=== PATIENT | male | born 1970 | race Hispanic/Latino ===

== ENCOUNTER 2019-03-28 21:21 | Inpatient (IN) | payer OTHER ==
--- NOTE | 2019-03-28 22:18 | Emergency Department Report ---
HPI - General Chief Complaint: Abdominal Pain Time Seen by Provider: 03/28/19 22:01 - HPI HPI: Room 7 The patient is a 48-year-old male presented with a chief complaint of fever. The patient is currently at [facility] under a 1013 for suicidal rex ation/depression. The patient reports fever at the facility for the past 2 days. The patient admits to occasional alcohol that has been productive but is uncertain of the color. Patient also admits to abdominal tenderness. Patient denies nausea vomiting or dysuria. Patient denies any new rashes Location: [See above] Duration: [See above] Quality: [See above] Severity: [See above] Modifying factors: [see above] Context: [see above] Mode of transportation: [not driving] ED Past Medical Hx - Past Medical History Previous Medical History?: Yes Hx Hypertension: Yes Hx Psychiatric Treatment: Yes Additional medical history: anxiety - Surgical History Past Surgical History?: Yes Additional Surgical History: back sx - Family History Family history: no significant - Social History Smoking Status: Former Smoker (none 2 weeks) Substance Use Type: None (denies illicit drug use), Alcohol ED Review of Systems ROS: Stated complaint: HIGH FEVER Other details as noted in HPI Constitutional: fever Eyes: denies: eye pain ENT: denies: throat pain Respiratory: no symptoms reported Cardiovascular: denies: chest pain Endocrine: no symptoms reported Gastrointestinal: abdominal pain. denies: nausea, vomiting Genitourinary: denies: dysuria Neurological: denies: headache Physical Exam - Physical Exam Vital Signs: Vital Signs 03/28/19 22:01 Temperature 101.3 F H Pulse Rate 87 Respiratory 18 Rate Blood Pressure 112/73 Blood Pressure 112/73 [Right] O2 Sat by Pulse 97 Oximetry Physical Exam: GENERAL: The patient is well-developed well-nourished male lying on stretcher not appearing to be in acute distress. [] HEENT: Normocephalic. Atraumatic. Extraocular motions are intact. Patient has moist mucous membranes. NECK: Supple. Trachea midline CHEST/LUNGS: Clear to auscultation. There is no respiratory distress noted. HEART/CARDIOVASCULAR: Regular. There is no tachycardia. There is no gallop rub or murmur. ABDOMEN: Abdomen is soft, with discomfort to palpation in the right upper quadrant, left upper quadrant and left lower quadrant. Patient has normal bowel sounds. There is no abdominal distention. SKIN: There is no rash. There is no edema. There is no diaphoresis. NEURO: The patient is awake, alert, and oriented. The patient is cooperative. The patient has normal speech MUSCULOSKELETAL: There is no evidence of acute injury. ED Course Vital Signs 03/28/19 22:01 Temperature 101.3 F H Pulse Rate 87 Respiratory 18 Rate Blood Pressure 112/73 Blood Pressure 112/73 [Right] O2 Sat by Pulse 97 Oximetry - Consultations Consultation #1: 03/29/19 01:12 Surgery paged 03/29/19 01:[address] Camacho ED Medical Decision Making - Lab Data Result diagrams: 03/28/19 22:21 03/28/19 22:21 Laboratory Tests 03/28/19 03/28/19 03/28/19 22:21 22:21 22:21 WBC 7.5 RBC 4.31 Hgb 15.5 H Hct 44.0 MCV 102 H MCH 36 H MCHC 35 H RDW 14.0 Plt Count 198 Lymph % (Auto) 11.5 L Emm[place] % (Auto) 10.8 H Eos % (Auto) 0.1 Baso % (Auto) 0.8 Lymph # 0.9 L Emmet # 0.8 Eos # 0.0 Baso # 0.1 Seg Neutrophils % 76.8 H Seg Neutrophils # 5.7 Sodium 130 L Potassium 3.8 Chloride 97.4 L Carbon Dioxide 22 Anion Gap 14 BUN 8 L Creatinine 0.9 Estimated GFR > 60 BUN/Creatinine Ratio 9 Glucose 118 H Lactic Acid 1.60 Calcium 8.4 Total Bilirubin 1.30 H AST 37 ALT 96 H Alkaline Phosphatase 46 Albumin 2.7 L Lipase TSH Free T4 Urine Color Urine Turbidity Urine pH Ur Specific [place] Urine Protein Urine Glucose (UA) Urine Ketones Urine Blood Urine Nitrite Urine Bilirubin Urine Urobilinogen Ur Leukocyte Esterase Urine WBC (Auto) Urine RBC (Auto) U Epithel Cells (Auto) Urine Mucus 03/28/19 03/28/19 03/29/19 22:21 23:31 01:06 WBC RBC Hgb Hct MCV MCH MCHC RDW Plt Count Lymph % (Auto) Emm[place] % (Auto) Eos % (Auto) Baso % (Auto) Lymph # Emmet # Eos # Baso # Seg Neutrophils % Seg Neutrophils # Sodium Potassium Chloride Carbon Dioxide Anion Gap BUN Creatinine Estimated GFR BUN/Creatinine Ratio Glucose Lactic Acid Calcium Total Bilirubin AST ALT Alkaline Phosphatase Albumin Lipase 13 TSH 1.110 Free T4 1.41 Urine Color Sandy Urine Turbidity Slightly-cloudy Urine pH 6.0 Ur Specific [place] 1.016 Urine Protein 30 mg/dl Urine Glucose (UA) Neg Urine Ketones Neg Urine Blood Mod Urine Nitrite Neg Urine Bilirubin Neg Urine Urobilinogen < 2.0 Ur Leukocyte Esterase Neg Urine WBC (Auto) 1.0 Urine RBC (Auto) 4.0 U Epithel Cells (Auto) 1.0 Urine Mucus Few - Radiology Data Radiology results: report reviewed (chest x-ray), image reviewed (chest x-ray, CT abdomen and pelvis, CT chest) interpreted by me: Chest x-con-bbioupdy left hemidiaphragm [address] [address] XRay Report Signed Patient: SHARI RODRIGUEZ MR#: [id number] 1 : 1970 Acct:[id number] Age/Sex: 48 / M ADM Date: 03/28/19 Loc: ED Attending Dr: Ordering Physician: EASTON LOREDO MD Date of Service: 03/28/19 Procedure(s): XR chest 1V ap Accession Number(s): [id number] cc: EASTON LOREDO MD Fluoro Time In Minutes: CHEST 1 VIEW 10:20 PM INDICATION / CLINICAL INFORMATION: Cough and fever. COMPARISON: None available. FINDINGS: SUPPORT DEVICES: None. HEART / MEDIASTINUM: The heart size and pulmonary vasculature are normal. LUNGS / PLEURA: No significant pulmonary or pleural abnormality. No pneumothorax. ADDITIONAL FINDINGS: There is moderate elevation of the left hemidiaphragm. IMPRESSION: Elevated left hemidiaphragm. No evidence of pneumonia. Signer Name: Bear Joshua MD Signed: 03/28/2019 10:45 PM Workstation Name: [id number] Transcribed By: RT Dictated By: Bear Joshua MD Electronically Authenticated By: Bear Joshua MD Signed Date/Time: 03/28/192244 DD/ 43 TD/TT: [address] [address] Cat Scan Report Signed Patient: SHARI RODRIGUEZ MR#: [id number] 1 : 1970 Acct:[id number] Age/Sex: 48 / M ADM Date: 03/28/19 Loc: ED Attending Dr: Ordering Physician: EASTON LOREDO MD Date of Service: 03/28/19 Procedure(s): CT abdomen pelvis w con Accession Number(s): [id number] cc: EASTON LOREDO MD CT CHEST, ABDOMEN, AND PELVIS WITH IV CONTRAST INDICATION: RUQ, LUQ, LLQ abdominal pain, fever. Cough. COMPARISON: None available. TECHNIQUE: All CT scans at this location are performed using CT dose reduction for ALARA by means of automated exposure control. Axial CT images were obtained through the chest, abdomen, and pelvis after IV contrast. FINDINGS: Skeletal System: No acute abnormality. There are healed anterior right upper rib fractures. CHEST: Heart: Normal. Thoracic Aorta: No acute abnormality. Mediastinum Brandie: No significant abnormality. Lungs: No acute air space or interstitial disease. There is chronic atelectasis in the left lung base secondary to elevation of the left hemidiaphragm. Pleura: No significant pleural effusion. No pneumothorax. Airways: No significant abnormality. Additional Findings: None. ABDOMEN: Liver: Mild hepatic steatosis. Gallbladder: Normal. Bile Ducts: Normal. Pancreas: Normal. Spleen: Normal. Adrenals: Normal. Right Kidney and Proximal Ureter: Normal. Left Kidney and Proximal Ureter: Normal. Stomach and Bowel: Normal. Lymph Nodes: No significant adenopathy. Aorta: No significant abnormality. IVC: Normal. Additional Findings: There is trace ascites. PELVIS: Urinary Bladder and Distal Ureters: There is mild bladder wall thickening superiorly. Appendix: Normal. Colon: Colonic diverticulosis is noted. There is focal inflammation in the region of distal descending colonic diverticulosis in the left lower quadrant with surrounding pericolonic inflammation. There are a few pericolonic foci of gas and fluid in the left lower quadrant (axial image 233, 242. Free Fluid: There is trace ascites. Lymph Nodes: No significant adenopathy. Additional Findings: None. IMPRESSION: 1. Acute distal descending colonic diverticulitis with a few very small hoa lonic abscesses. The largest measures 2 cm. These are not amenable to percutaneous drainage at this time. There is associated ascites and pericolonic inflammation. 2. No acute findings in the chest. 3. Additional incidental findings, as above. Signer Name: Filemon Abraham MD Signed: 03/29/2019 1:04 AM Workstation Name: [id number] Transcribed By: Dictated By: Filemon Abraham MD Electronically Authenticated By: Filemon Abraham MD Signed Date/Time: 03/29/19103 DD/ TD/TT: [facility] [address] [place] [address] Cat Scan Report Signed Patient: SHARI RODRIGUEZ MR#: [id number] 1 : 1970 Acct:[id number] Age/Sex: 48 / M ADM Date: 03/28/19 Loc: ED Attending Dr: Ordering Physician: EASTON LOREDO MD Date of Service: 03/28/19 Procedure(s): CT chest w con Accession Number(s): [id number] cc: EASTON LOREDO MD CT CHEST, ABDOMEN, AND PELVIS WITH IV CONTRAST INDICATION: RUQ, LUQ, LLQ abdominal pain, fever. Cough. COMPARISON: None available. TECHNIQUE: All CT scans at this location are performed using CT dose reduction for ALARA by means of automated exposure control. Axial CT images were obtained through the chest, abdomen, and pelvis after IV contrast. FINDINGS: Skeletal System: No acute abnormality. There are healed anterior right upper rib fractures. CHEST: Heart: Normal. Thoracic Aorta: No acute abnormality. Mediastinum Brandie: No significant abnormality. Lungs: No acute air space or interstitial disease. There is chronic atelectasis in the left lung base secondary to elevation of the left hemidiaphragm. Pleura: No significant pleural effusion. No pneumothorax. Airways: No significant abnormality. Additional Findings: None. ABDOMEN: Liver: Mild hepatic steatosis. Gallbladder: Normal. Bile Ducts: Normal. Pancreas: Normal. Spleen: Normal. Adrenals: Normal. Right Kidney and Proximal Ureter: Normal. Left Kidney and Proximal Ureter: Normal. Stomach and Bowel: Normal. Lymph Nodes: No significant adenopathy. Aorta: No significant abnormality. IVC: Normal. Additional Findings: There is trace ascites. PELVIS: Urinary Bladder and Distal Ureters: There is mild bladder wall thickening superiorly. Appendix: Normal. Colon: Colonic diverticulosis is noted. There is focal inflammation in the region of distal descending colonic diverticulosis in the left lower quadrant with surrounding pericolonic inflammation. There are a few pericolonic foci of gas and fluid in the left lower quadrant (axial image 233, 242. Free Fluid: There is trace ascites. Lymph Nodes: No significant adenopathy. Additional Findings: None. IMPRESSION: 1. Acute distal descending colonic diverticulitis with a few very small pericolonic abscesses. The largest measures 2 cm. These are not amenable to percutaneous drainage at this time. There is associated ascites and pericolonic inflammation. 2. No acute findings in the chest. 3. Additional incidental findings, as above. Signer Name: Filemon Abraham MD Signed: 03/29/2019 1:04 AM Workstation Name: [id number] Transcribed By: SW Dictated By: Filemon Abraham MD Electronically Authenticated By: Filemon Abraham MD Signed Date/Time: 03/29/19103 DD/ TD/TT: - Differential Diagnosis pneumonia, bronchitis, gastritis, UTI Critical care attestation.: If time is entered above; I have spent that time in minutes in the direct care of this critically ill patient, excluding procedure time. ED Disposition Clinical Impression: Acute abdominal pain, Diverticulitis of intestine with abscess Disposition: OP ADMIT IP TO THIS HOSP Is pt being admited?: Yes Does the pt Need Aspirin: No Condition: Fair Referrals: WOODY AGUILAR MD [Primary Care Provider] - 3-5 Days Time of Disposition: 01:18 (hospitalist paged (Dr. Netta Ruffin))
[2019-03-28 22:46] LABS: Basophils # (Auto) 0.1 K/mm3 (0.0-0.1); Basophils % (Auto) 0.8 % (0.0-1.8); Eosinophils % (Auto) 0.1 % (0.0-4.3); Hemoglobin 15.5 gm/dl (11.8-15.2); Lymphocytes # (Auto) 0.9 K/mm3 (1.2-5.4); Lymphocytes % (Auto) 11.5 % (13.4-35.0); Mean Corpuscular HGB Conc 35 % (32-34); Mean Corpuscular Volume 102 fl (84-94); Monocytes # (Auto) 0.8 K/mm3 (0.0-0.8); Monocytes % (Auto) 10.8 % (0.0-7.3); Platelet Count 198 K/mm3 (140-440); Red Blood Count 4.31 M/mm3 (3.65-5.03)
--- NOTE | 2019-03-28 22:49 | XRay Report ---
CHEST 1 VIEW 10:20 PM INDICATION / CLINICAL INFORMATION: Cough and fever. COMPARISON: None available. FINDINGS: SUPPORT DEVICES: None. HEART / MEDIASTINUM: The heart size and pulmonary vasculature are normal. LUNGS / PLEURA: No significant pulmonary or pleural abnormality. No pneumothorax. ADDITIONAL FINDINGS: There is moderate elevation of the left hemidiaphragm. IMPRESSION: Elevated left hemidiaphragm. No evidence of pneumonia. Signer Name: Bear Joshua MD Signed: 03/28/2019 10:45 PM Workstation Name: [id number]
[2019-03-28] MEDS ORDERED: TYLENOL PO ONE (23:03)
[2019-03-28 23:13] LABS: Alanine Aminotransferase 96 units/L (7-56); Albumin 2.7 g/dL (3.9-5); BUN/Creatinine Ratio 9; Blood Urea Nitrogen 8 mg/dL (9-20); Calcium 8.4 mg/dL (8.4-10.2); Hemolysis Index 6
[2019-03-28 23:24] LABS: Free T4 (Free Thyroxine) 1.41 ng/dL (0.76-1.46)
[2019-03-29] LABS: Bilirubin,Urine NEG (Negative); Blood,Urine MOD (Negative); Color,Urine Amber (Yellow); Mucus,Urine FEW /HPF; Urobilinogen,Urine < 2.0 mg/dL (<2.0)
[2019-03-29] MEDS ORDERED: NACL 0.9% 1000 ML 1,000 ML IV ONE (00:02)
[2019-03-29] MEDS ORDERED: TORADOL IV ONE (01:04)
--- NOTE | 2019-03-29 01:08 | Cat Scan Report ---
CT CHEST, ABDOMEN, AND PELVIS WITH IV CONTRAST INDICATION: RUQ, LUQ, LLQ abdominal pain, fever. Cough. COMPARISON: None available. TECHNIQUE: All CT scans at this location are performed using CT dose reduction for ALARA by means of automated e xposure control. Axial CT images were obtained through the chest, abdomen, and pelvis after IV contrast. FINDINGS: Skeletal System: No acute abnormality. There are healed anterior right upper rib fractures. CHEST: Heart: Normal. Thoracic Aorta: No acute abnormality. Mediastinum & Brandie: No significant abnormality. Lungs: No acute air space or interstitial disease. There is chronic atelectasis in the left lung bas e secondary to elevation of the left hemidiaphragm. Pleura: No significant pleural effusion. No pneumothorax. Airways: No significant abnormality. Additional Findings: None. ABDOMEN: Liver: Mild hepatic steatosis. Gallbladder: Normal. Bile Ducts: Normal. Pancreas: Normal. Spleen: Normal. Adrenals: Normal. Right Kidney and Proximal Ureter: Normal. Left Kidney and Proximal Ureter: Normal. Stomach and Bowel: Normal. Lymph Nodes: No significant adenopathy. Aorta: No significant abnormality. IVC: Normal. Additional Findings: There is trace ascites. PELVIS: Urinary Bladder and Distal Ureters: There is mild bladder wall thickening superiorly. Appendix: Normal. Colon: Colonic diverticulosis is noted. There is focal inflammation in the region of distal descendin g colonic diverticulosis in the left lower quadrant with surrounding pericolonic inflammation. There are a few pericolonic foci of gas and fluid in the left lower quadrant (axial image 233, 242. Free Fluid: There is trace ascites. Lymph Nodes: No significant adenopathy. Additional Findings: None. IMPRESSION: 1. Acute distal descending colonic diverticulitis with a few very small pericolonic abscesses. The la rgest measures 2 cm. These are not amenable to percutaneous drainage at this time. There is associate d ascites and pericolonic inflammation. 2. No acute findings in the chest. 3. Additional incidental findings, as above. Signer Name: Filemon Abraham MD Signed: 03/29/2019 1:04 AM Workstation Name: [id number]
[2019-03-29] MEDS ORDERED: FLAGYL 500 MG/100 ML 500 MG/100 ML BAG IV ONE (01:12)
[2019-03-29] MEDS ORDERED: LEVAQUIN 750MG/150ML 750 MG/150 ML BAG IV ONE (01:12)
[2019-03-29] MEDS ORDERED: TYLENOL PO PRN (02:13)
[2019-03-29] MEDS ORDERED: ZOFRAN IV PRN (02:13)
--- NOTE | 2019-03-29 02:25 | History and Physical Report ---
History of Present Illness Date of examination: 03/29/19 History of present illness: 48-year-old male with a history of hypertension, diabetes, depression was sent from a psych facility for evaluation of fever. He stated he's been having fever since Sunday and abdominal pain. Pain is in the left lower abdomen which she described as a brick sitting on his abdomen, intermittent, cannot say how long it lasts for her, intensity 7/10, no radiation, cannot identify exacerbating factors, relieved with pain medication. Denies nausea vomiting, diarrhea. This recently at the hospital where he was evaluated for worsening back pain and leg pain, is worried he had extensive workup done including MRI which showed he had a pinched nerve. Review of systems Constitutional: no weight loss, chills, fever Ears, eyes, nose, mouth and throat: no nasal congestion, no nasal discharge, no sinus pressure, no vision change, no red eye. Neck: No neck pain or rigidity. Cardiovascular: no palpitations, chest pain Respiratory: no cough, shortness of breath Gastrointestinal: no hematochezia, abdominal pain Genitourinary : no frequency , no hematuria Musculoskeletal: no joint swelling or muscle ache Integumentary: no rash, no pruritis Neurological: no parathesias, no focal weakness Endocrine: no cold or heat intolerance, no polyuria or polydipsia Hematologic/Lymphatic: no easy bruising, no easy bleeding, no gland swelling Allergic/Immunologic: no urticaria, no angioedema. PAST MEDICAL HISTORY:hypertension, diabetes, depression PAST SURGICAL HISTORY: Back SOCIAL HISTORY: Denies alcohol, drugs, tobacco FAMILY HISTORY: Hypertension Medications and Allergies Allergies Allergy/AdvReac Type Severity Reaction Status Date / Time Penicillins Allergy Hives Verified 03/28/19 22:11 Active Meds: Active Medications Acetaminophen (Tylenol) 650 mg PO Q4H PRN PRN Reason: Pain MILD(1-3)/Fever >100.5/WAGONER Enoxaparin Sodium (Lovenox) 30 mg SUB-Q QDAY SHANE Levofloxacin/Dextrose (Levaquin 750mg/150ml) 750 mg in 150 mls @ 100 mls/hr IV ONCE ONE Stop: 03/29/19 02:41 Sodium Chloride (Nacl 0.9% 1000 Ml) 1,000 mls @ 125 mls/hr IV DIRECT SHANE Metronidazole (Flagyl 500 Mg/100 Ml) 500 mg in 100 mls @ 100 mls/hr IV Q8H SHANE; Protocol Levofloxacin/Dextrose (Levaquin 750mg/150ml) 750 mg in 150 mls @ 100 mls/hr IV Q24H SHANE; Protocol Morphine Sulfate (Morphine) 2 mg IV Q4H PRN PRN Reason: Pain, Moderate (4-6) Ondansetron HCl (Zofran) 4 mg IV Q4H PRN PRN Reason: Nausea And Vomiting Sodium Chloride (Sodium Chloride Flush Syringe 10 Ml) 10 ml IV BID SHANE Sodium Chloride (Sodium Chloride Flush Syringe 10 Ml) 10 ml IV PRN PRN PRN Reason: LINE FLUSH Exam - Physical Exam Narrative exam: General Apperance: The patient lying in bed, breathing comfortable HEENT: Normocephalic, atraumatic. Pupils equally round and reactive to light, EOMI, no sclericterus or JVD or thyromegaly or nodule. , no carotid bruit, muco us membranes moist, no exudate or erythema Heart: S1-S2, regular is rhythm Lungs: Clear to auscultation bilaterally, breathing comfortable Abdomen: Positive bowel sounds, soft, tender in LLQ, mid lower abdomen, nondistended, no organomegaly Extremities: No edema cyanosis clubbing Skin: no rash, nodule, warm and dry Neuro: cranial nerves 2-12 intact, speech is fluent, motor/sensory intact - Constitutional Vitals: Temp Pulse Resp BP Pulse Ox 100.1 F H 90 15 167/102 94 03/29/19 00:55 03/29/19 00:00 03/29/19 00:00 03/29/19 00:34 03/29/19 00:34 Results - Labs CBC & Chem 7: 03/28/19 22:21 03/28/19 22:21 Labs: Abnormal lab results 03/28/19 03/28/19 Range/Units 22:21 22:21 Hgb 15.5 H (11.8-15.2) gm/dl MCV 102 H (84-94) fl MCH 36 H (28-32) pg MCHC 35 H (32-34) % Lymph % (Auto) 11.5 L (13.4-35.0) % [place] % (Auto) 10.8 H (0.0-7.3) % Lymph # 0.9 L (1.2-5.4) K/mm3 Seg Neutrophils % 76.8 H (40.0-70.0) % Sodium 130 L (137-145) mmol/L Chloride 97.4 L (98-107) mmol/L BUN 8 L (9-20) mg/dL Glucose 118 H (75-100) mg/dL Total Bilirubin 1.30 H (0.1-1.2) mg/dL ALT 96 H (7-56) units/L Total Protein 5.9 L (6.3-8.2) g/dL Albumin 2.7 L (3.9-5) g/dL - Imaging and Cardiology CT scan - abdomen: report reviewed CT scan - chest: report reviewed CT scan - pelvis: report reviewed Assessment and Plan Assessment Acute diverticulitis with abscess Suicide ideation Hypertension Anxiety Depression Plan Admit to medicine Start IV fluid, Levaquin, Flagyl, consult surgery, GI Patient is 1013, continuing appropriate outpatient medications DVT prophylaxis, IV morphine
[2019-03-29] MEDS: NACL 0.9% 1000 ML 1,000 ML IV SCH ×2 (04:33→18:23)
--- NOTE | 2019-03-29 09:57 | Gastroenterology Consultation ---
History of Present Illness - Reason for Consult Consult date: 03/29/19 diverticulitis Requesting physician: SHADI LOWE - History of Present Illness The patient is a 48 yo male who presents with lower abdominal pain and fevers for 2-3 days. Pt was found to have acute diverticulitis with small abscesses on ct scan. currently on IV abx. last bm was 2-3 days ago and denies gi bleeding. no prior h/o diverticulitis. reports having colonoscopy ~7-8 years ago with polyps removed per his understanding. denies n/v. ct scan with ascites as well. denies h/o known liver disease. Past History Past Medical History: diabetes, hypertension, other (depression) Past Surgical History: Other (back surgery) Social history: no significant social history Family history: no significant family history Medications and Allergies Allergies Allergy/AdvReac Type Severity Reaction Status Date / Time Penicillins Allergy Hives Verified 03/28/19 22:11 Active Meds: Active Medications Acetaminophen (Tylenol) 650 mg PO Q4H PRN PRN Reason: Pain MILD(1-3)/Fever >100.5/WAGONER Enoxaparin Sodium (Lovenox) 40 mg SUB-Q QDAY@1000 SHANE Sodium Chloride (Nacl 0.9% 1000 Ml) 1,000 mls @ 125 mls/hr IV DIRECT SHANE Last Admin: 03/29/19 04:33 Dose: 125 mls/hr Documented by: Metronidazole (Flagyl 500 Mg/100 Ml) 500 mg in 100 mls @ 100 mls/hr IV Q8H SHANE; Protocol Levofloxacin/Dextrose (Levaquin 750mg/150ml) 750 mg in 150 mls @ 100 mls/hr IV Q24H SHANE; Protocol Morphine Sulfate (Morphine) 2 mg IV Q4H PRN PRN Reason: Pain, Moderate (4-6) Ondansetron HCl (Zofran) 4 mg IV Q4H PRN PRN Reason: Nausea And Vomiting Sodium Chloride (Sodium Chloride Flush Syringe 10 Ml) 10 ml IV BID SHANE Sodium Chloride (Sodium Chloride Flush Syringe 10 Ml) 10 ml IV PRN PRN PRN Reason: LINE FLUSH Reviewed/updated patient's home and current medications Review of Systems - Review of Systems All systems: negative (leg pain, anxiety/depression; rest per HPI) Exam - Constitutional Vital Signs: Temp Pulse Resp BP Pulse Ox 97.8 F 62 18 109/72 97 03/29/19 04:13 03/29/19 04:13 03/29/19 04:13 03/29/19 04:13 03/29/19 04:13 General appearance: no acute distress - EENT Eyes: PERRL, EOM intact ENT: hearing intact, clear oral mucosa - Neck Neck: supple, normal ROM - Respiratory Respiratory effort: normal Respiratory: bilateral: CTA - Cardiovascular Rhythm: regular Heart Sounds: Present: S1 & S2 Extremities: No edema, Full ROM - Gastrointestinal General gastrointestinal: Present: soft, tender (+ left sided ttp), non-dist ended, normal bowel sounds - Neurologic Neurological: alert and oriented x3 - Psychiatric Psychiatric: appropriate mood/affect - Labs CBC & Chem 7: 03/28/19 22:21 03/28/19 22:21 Lab Results: Laboratory Results - last 24 hr 03/28/19 03/28/19 03/28/19 22:21 22:21 22:21 WBC 7.5 RBC 4.31 Hgb 15.5 H Hct 44.0 MCV 102 H MCH 36 H MCHC 35 H RDW 14.0 Plt Count 198 Lymph % (Auto) 11.5 L [place] % (Auto) 10.8 H Eos % (Auto) 0.1 Baso % (Auto) 0.8 Lymph # 0.9 L Howard # 0.8 Eos # 0.0 Baso # 0.1 Seg Neutrophils % 76.8 H Seg Neutrophils # 5.7 Sodium 130 L Potassium 3.8 Chloride 97.4 L Carbon Dioxide 22 Anion Gap 14 BUN 8 L Creatinine 0.9 Estimated GFR > 60 BUN/Creatinine Ratio 9 Glucose 118 H Lactic Acid 1.60 Calcium 8.4 Total Bilirubin 1.30 H AST 37 ALT 96 H Alkaline Phosphatase 46 Total Protein 5.9 L Albumin 2.7 L Albumin/Globulin Ratio 0.8 Lipase TSH Free T4 Urine Color Urine Turbidity Urine pH Ur Specific [place] Urine Protein Urine Glucose (UA) Urine Ketones Urine Blood Urine Nitrite Urine Bilirubin Urine Urobilinogen Ur Leukocyte Esterase Urine WBC (Auto) Urine RBC (Auto) U Epithel Cells (Auto) Urine Mucus 03/28/19 03/28/19 03/29/19 22:21 23:31 01:06 WBC RBC Hgb Hct MCV MCH MCHC RDW Plt Count Lymph % (Auto) [place] % (Auto) Eos % (Auto) Baso % (Auto) Lymph # Howard # Eos # Baso # Seg Neutrophils % Seg Neutrophils # Sodium Potassium Chloride Carbon Dioxide Anion Gap BUN Creatinine Estimated GFR BUN/Creatinine Ratio Glucose Lactic Acid Calcium Total Bilirubin AST ALT Alkaline Phosphatase Total Protein Albumin Albumin/Globulin Ratio Lipase 13 TSH 1.110 Free T4 1.41 Urine Color [place] Urine Turbidity Slightly-cloudy Urine pH 6.0 Ur Specific [place] 1.016 Urine Protein 30 mg/dl Urine Glucose (UA) Neg Urine Ketones Neg Urine Blood Mod Urine Nitrite Neg Urine Bilirubin Neg Urine Urobilinogen < 2.0 Ur Leukocyte Esterase Neg Urine WBC (Auto) 1.0 Urine RBC (Auto) 4.0 U Epithel Cells (Auto) 1.0 Urine Mucus Few - Imaging CT Scan: report reviewed Assessment and Plan 1. Acute diverticulitis - associated small abscesses on ct scan; on IV abx, cont IV abx for now. okay for trial of clears from GI stand point if okay with surgery. hopefully will resolve with medical management (abx). will need eventual outpatient colonoscopy in ~6-8 weeks to r/o occult pathology
[2019-03-29] MEDS ORDERED: LOVENOX SUB-Q SCH (10:00)
[2019-03-29] MEDS: FLAGYL 500 MG/100 ML 500 MG/100 ML BAG IV SCH ×2 (10:02→18:20)
[2019-03-29] MEDS: LOVENOX SUB-Q SCH (10:03)
[2019-03-29] MEDS: SODIUM CHLORIDE FLUSH SYRINGE 10 ML IV SCH (10:03)
--- NOTE | 2019-03-29 13:39 | Progress Note ---
Assessment and Plan Full consult dictated 48 y/o male with psych hx admitted secondary to LLQ abd pain. CT - acute sigmoid diverticulitis with microabscessess Temp 102 Abd - LLQ as well as pericumbilica tenderness. wbc 7.5 imp - acute, non perforated, diverticulitis with abscess formation. rec keep NPO except for ice chips and meds until pain resolves mental health eval ("suicidal tendencies") came from [facility] will follow repeat cbc in am History of present illness: 48-year-old male with a history of hypertension, diabetes, depression was sent from a psych facility for evaluation of fever. He stated he's been having fever since Sunday and abdominal pain. Pain is in the left lower abdomen which she described as a brick sitting on his abdomen, intermittent, cannot say how long it lasts for her, intensity 7/10, no radiation, cannot identify exacerbating factors, relieved with pain medication. Denies nausea vomiting, diarrhea. This recently at the hospital where he was evaluated for worsening back pain and leg pain, is worried he had extensive workup done including MRI which showed he had a pinched nerve. Review of systems Constitutional: no weight loss, chills, fever Ears, eyes, nose, mouth and throat: no nasal congestion, no nasal discharge, no sinus pressure, no vision change, no red eye. Neck: No neck pain or rigidity. Cardiovascular: no palpitations, chest pain Respiratory: no cough, shortness of breath Gastrointestinal: no hematochezia, abdominal pain Genitourinary : no frequency , no hematuria Musculoskeletal: no joint swelling or muscle ache Integumentary: no rash, no pruritis Neurological: no parathesias, no focal weakness Endocrine: no cold or heat intolerance, no polyuria or polydipsia Hematologic/Lymphatic: no easy bruising, no easy bleeding, no gland swelling Allergic/Immunologic: no urticaria, no angioedema. PAST MEDICAL HISTORY:hypertension, diabetes, depression PAST SURGICAL HISTORY: Back SOCIAL HISTORY: Denies alcohol, drugs, tobacco FAMILY HISTORY: Hypertension Selected Entries 03/29/19 12:25 Temperature 102.4 F H Pulse Rate 108 H O2 Sat by Pulse 92 Oximetry Laboratory Tests 03/28/19 03/28/19 22:21 22:21 WBC 7.5 Hgb 15.5 H Hct 44.0 Sodium 130 L Potassium 3.8 Chloride 97.4 L Total Bilirubin 1.30 H AST 37 ALT 96 H Alkaline Phosphatase 46 Objective Vital Signs - 12hr 03/29/19 03/29/19 03/29/19 01:45 02:00 02:15 Temperature Pulse Rate Respiratory Rate Blood Pressure 104/70 114/88 110/76 O2 Sat by Pulse 93 97 95 Oximetry 03/29/19 03/29/19 03/29/19 02:31 02:45 03:00 Temperature Pulse Rate Respiratory Rate Blood Pressure 97/29 94/58 93/61 O2 Sat by Pulse 95 98 96 Oximetry 03/29/19 03/29/19 03/29/19 03:14 03:15 03:41 Temperature 97.9 F Pulse Rate 59 L 59 L Respiratory 21 24 Rate Blood Pressure 100/64 96/67 O2 Sat by Pulse 98 94 Oximetry 03/29/19 03/29/19 04:13 12:25 Temperature 97.8 F 102.4 F H Pulse Rate 62 108 H Respiratory 18 18 Rate Blood Pressure 109/72 110/81 O2 Sat by Pulse 97 92 Oximetry - Labs 03/28/19 22:21 03/28/19 22:21 Diabetes panel 03/28/19 Range/Units 22:21 Sodium 130 L (137-145) mmol/L Potassium 3.8 (3.6-5.0) mmol/L Chloride 97.4 L (98-107) mmol/L Carbon Dioxide 22 (22-30) mmol/L BUN 8 L (9-20) mg/dL Creatinine 0.9 (0.8-1.5) mg/dL Glucose 118 H (75-100) mg/dL Calcium 8.4 (8.4-10.2) mg/dL AST 37 (5-40) units/L ALT 96 H (7-56) units/L Alkaline Phosphatase 46 (35-129) units/L Total Protein 5.9 L (6.3-8.2) g/dL Albumin 2.7 L (3.9-5) g/dL Thyroid panel 03/28/19 Range/Units 22:21 TSH 1.110 (0.270-4.200) mlU/mL Calcium panel 03/28/19 Range/Units 22:21 Calcium 8.4 (8.4-10.2) mg/dL Albumin 2.7 L (3.9-5) g/dL Pituitary panel 03/28/19 03/28/19 Range/Units 22:21 22:21 Sodium 130 L (137-145) mmol/L Potassium 3.8 (3.6-5.0) mmol/L Chloride 97.4 L (98-107) mmol/L Carbon Dioxide 22 (22-30) mmol/L BUN 8 L (9-20) mg/dL Creatinine 0.9 (0.8-1.5) mg/dL Glucose 118 H (75-100) mg/dL Calcium 8.4 (8.4-10.2) mg/dL TSH 1.110 (0.270-4.200) mlU/mL Adrenal panel 03/28/19 Range/Units 22:21 Sodium 130 L (137-145) mmol/L Potassium 3.8 (3.6-5.0) mmol/L Chloride 97.4 L (98-107) mmol/L Carbon Dioxide 22 (22-30) mmol/L BUN 8 L (9-20) mg/dL Creatinine 0.9 (0.8-1.5) mg/dL Glucose 118 H (75-100) mg/dL Calcium 8.4 (8.4-10.2) mg/dL Total Bilirubin 1.30 H (0.1-1.2) mg/dL AST 37 (5-40) units/L ALT 96 H (7-56) units/L Alkaline Phosphatase 46 (35-129) units/L Total Protein 5.9 L (6.3-8.2) g/dL Albumin 2.7 L (3.9-5) g/dL
[2019-03-29] MEDS: MORPHINE IV PRN ×2 (13:49→19:29)
--- NOTE | 2019-03-29 13:52 | Event Note ---
Date: 03/29/19 This is a follow up of an admission earlier this am. We will continue the paln as outlined in the H and P. Appreciate GI consult. Total time 32 min with > 50% in coordination of care and counseling
--- NOTE | 2019-03-29 23:27 | Consultation ---
REASON FOR CONSULTATION: Acute diverticulitis. HISTORY OF PRESENT ILLNESS: The patient is a 48-year-old patient with a past psych history, who is admitted at this time with a chief complaint of left lower quadrant abdominal pain of approximately 48 hours duration. PAST MEDICAL HISTORY: Pertinent for hypertension, depression as well as anxiety. A caregiver in the room also stating that he has tendencies PAST SURGICAL HISTORY: Status post three back surgeries. Also, colonoscopy 6-8 years ago where polyps were noted and removed. ALLERGIES: The patient is questionably allergic to PENICILLIN. States he was told this as a child, but does not really know if he is or what reaction that he develops from it. MEDICATIONS: Currently the patient is not taking any medicines. States he is " although again he is hypertensive and with psych history. FAMILY HISTORY: Hypertension. SOCIAL HISTORY: Smoked a pack a day for approximately 30 years " States that he quit smoking approximately 2 weeks ago. PHYSICAL EXAMINATION: GENERAL: At this time reveals the patient to be calm, awake, alert, and cooperative. VITAL SIGNS: Show her to be running a temperature of 102.4, pulse is 62, blood pressure 110/81, respirations of 18. ABDOMEN: Examination of the abdomen reveals him to be moderately obese. There is left lower quadrant tenderness as well as periumbilical tenderness with mild guarding and no rebound. Bowel sounds are hypoactive. Multiple skin lesions are noted throughout the lower abdomen, which he says are self-inflicted secondary to " DIAGNOSTIC STUDIES: CT scan of the abdomen was performed, which reveals acute distal descending diverticulitis with few very small pericolonic abscesses, the largest measuring approximately 2 cm and not amenable to percutaneous drainage at this time. IMPRESSION: A 48-year-old patient with; 1. Psychiatric history: 2. Acute onset of sigmoid colon diverticulitis with small abscesses. 3. Mental health evaluation. RECOMMENDATIONS: At this time is to keep the patient n.p.o. except for ice chips and meds. Would not recommend any p.o. diet until the patient's pain resolved as this is a complicated diverticulitis abscesses formation. It is noted the patient is already on Levaquin and Flagyl, which I would continue. We will repeat a CBC in the morning and monitor clinically. We will follow with you. Thank you very much for consultation. JOB# [id number] FP/NTS
[2019-03-30] MEDS: RESTORIL PO PRN ×2 (00:20→22:01)
[2019-03-30] MEDS: FLAGYL 500 MG/100 ML 500 MG/100 ML BAG IV SCH ×3 (01:18→17:00)
[2019-03-30] MEDS: NACL 0.9% 1000 ML 1,000 ML IV SCH ×3 (01:19→22:01)
[2019-03-30] MEDS: SODIUM CHLORIDE FLUSH SYRINGE 10 ML IV SCH ×3 (01:19→22:01)
[2019-03-30] MEDS: LEVAQUIN 750MG/150ML 750 MG/150 ML BAG IV SCH (01:22)
[2019-03-30 06:34] LABS: Basophils % (Auto) 0.1 % (0.0-1.8); Hematocrit 40.4 % (35.5-45.6); Hemoglobin 14.2 gm/dl (11.8-15.2); Lymphocytes # (Auto) 0.6 K/mm3 (1.2-5.4); Lymphocytes % (Auto) 5.7 % (13.4-35.0); Mean Corpuscular HGB Conc 35 % (32-34); Mean Corpuscular Volume 102 fl (84-94); Monocytes # (Auto) 0.8 K/mm3 (0.0-0.8); Monocytes % (Auto) 7.2 % (0.0-7.3); Platelet Count 217 K/mm3 (140-440); Red Blood Count 3.95 M/mm3 (3.65-5.03); Red Cell Distribution Width 14.1 % (13.2-15.2)
[2019-03-30 06:48] LABS: BUN/Creatinine Ratio 15; Blood Urea Nitrogen 12 mg/dL (9-20); Hemolysis Index 7
[2019-03-30] MEDS: LOVENOX SUB-Q SCH (09:33)
[2019-03-30] MEDS: MORPHINE IV PRN ×2 (10:13→17:01)
--- NOTE | 2019-03-30 12:45 | Progress Note ---
Assessment and Plan Assessment and plan: 48-year-old man with history of hypertension diabetes and mood disorder who presented from psych facility for fever Sepsis/acute diverticulitis with abscess Continue antibiotics, general surgery input appreciated, there is no evidence of perforation, keep nothing by mouth, ice chips only at this time Suicidal ideation/mood disorder/major depression mgt per psych, 1013 has been rescinded Hyponatremia Hypertension and diabetes Optimize medications DVT prophylaxis of Lovenox History Interval history: Review of systems Constitutional: Has not had fever since yesterday CVS: No chest pain, no orthopnea, no dyspnea on exertion, no pedal edema GI: Abdominal pain is improved Respiratory: no wheezing, no coughing Hospitalist Physical - Physical exam Narrative exam: General.: Appears well, no distress, nontoxic HEENT: Moist mucous membranes, extraocular muscles intact, no lymphadenopathy Neck: supple Cardiac: S1-S2 heard Lungs: clear to auscultation bilaterally Abdomen: soft , tender, nondistended, bowel sounds positive Extremities: no edema clubbing or cyanosis Skin: no rash or lesions Neurologic: no gross focal deficits Psych: calm, and cooperative - Constitutional Vitals: Temp Pulse Resp BP Pulse Ox 97.8 F 81 18 91/59 94 03/30/19 06:08 03/30/19 06:08 03/30/19 06:08 03/30/19 06:08 03/30/19 06:08 Results - Labs CBC & Chem 7: 03/30/19 06:02 03/30/19 06:02 Labs: Laboratory Last Values WBC 11.0 K/mm3 (4.5-11.0) 03/30/19 06:02 RBC 3.95 M/mm3 (3.65-5.03) 03/30/19 06:02 Hgb 14.2 gm/dl (11.8-15.2) 03/30/19 06:02 Hct 40.4 % (35.5-45.6) 03/30/19 06:02 MCV 102 fl (84-94) H 03/30/19 06:02 MCH 36 pg (28-32) H 03/30/19 06:02 MCHC 35 % (32-34) H 03/30/19 06:02 RDW 14.1 % (13.2-15.2) 03/30/19 06:02 Plt Count 217 K/mm3 (140-440) 03/30/19 06:02 Lymph % (Auto) 5.7 % (13.4-35.0) L 03/30/19 06:02 Richardson % (Auto) 7.2 % (0.0-7.3) 03/30/19 06:02 Eos % (Auto) 0.0 % (0.0-4.3) 03/30/19 06:02 Baso % (Auto) 0.1 % (0.0-1.8) 03/30/19 06:02 Lymph # 0.6 K/mm3 (1.2-5.4) L 03/30/19 06:02 Richardson # 0.8 K/mm3 (0.0-0.8) 03/30/19 06:02 Eos # 0.0 K/mm3 (0.0-0.4) 03/30/19 06:02 Baso # 0.0 K/mm3 (0.0-0.1) 03/30/19 06:02 Seg Neutrophils % 87.0 % (40.0-70.0) H 03/30/19 06:02 Seg Neutrophils # 9.6 K/mm3 (1.8-7.7) H 03/30/19 06:02 Sodium 135 mmol/L (137-145) L 03/30/19 06:02 Potassium 3.8 mmol/L (3.6-5.0) 03/30/19 06:02 Chloride 103.6 mmol/L (98-107) 03/30/19 06:02 Carbon Dioxide 22 mmol/L (22-30) 03/30/19 06:02 13 mmol/L 03/30/19 06:02 BUN 12 mg/dL (9-20) 03/30/19 06:02 0.8 mg/dL (0.8-1.5) 03/30/19 06:02 Estimated GFR > 60 ml/min 03/30/19 06:02 15 % 03/30/19 06:02 Glucose 119 mg/dL (75-100) H 03/30/19 06:02 Lactic Acid 1.60 mmol/L (0.7-2.0) 03/28/19 22:21 Calcium 8.0 mg/dL (8.4-10.2) L 03/30/19 06:02 1.30 mg/dL (0.1-1.2) H 03/28/19 22:21 AST 37 units/L (5-40) 03/28/19 22:21 ALT 96 units/L (7-56) H 03/28/19 22:21 46 units/L (35-129) 03/28/19 22:21 5.9 g/dL (6.3-8.2) L 03/28/19 22:21 2.7 g/dL (3.9-5) L 03/28/19 22:21 0.8 % 03/28/19 22:21 13 units/L (13-60) 03/29/19 01:06 TSH 1.110 mlU/mL (0.270-4.200) 03/28/19 22:21 Free T4 1.41 ng/dL (0.76-1.46) 03/28/19 22:21 Sandy (Yellow) 03/28/19 23:31 Slightly-cloudy (Clear) 03/28/19 23:31 6.0 (5.0-7.0) 03/28/19 23:31 Ur Specific Champion 1.016 (1.003-1.030) 03/28/19 23:31 30 mg/dl mg/dL (Negative) 03/28/19 23:31 Neg mg/dL (Negative) 03/28/19 23:31 Neg mg/dL (Negative) 03/28/19 23:31 Mod (Negative) 03/28/19 23:31 Neg (Negative) 03/28/19 23:31 Neg (Negative) 03/28/19 23:31 < 2.0 mg/dL (<2.0) 03/28/19 23:31 Ur Leukocyte Esterase Neg (Negative) 03/28/19 23:31 1.0 /HPF (0.0-6.0) 03/28/19 23:31 4.0 /HPF (0.0-6.0) 03/28/19 23:31 U Epithel Cells (Auto) 1.0 /HPF (0-13.0) 03/28/19 23:31 Few /HPF 03/28/19 23:31 Active Medications - Current Medications Current Medications: Generic Name Dose Route Start Last Admin Trade Name Freq PRN Reason Stop Dose Admin Acetaminophen 650 mg 03/29/19 02:13 Tylenol PO Q4H PRN Pain MILD(1-3)/Fever >100.5/WAGONER Enoxaparin Sodium 40 mg 03/29/19 10:00 03/30/19 09:33 Lovenox SUB-Q 40 mg QDAY@1000 SHANE Administration Sodium Chloride 1,000 mls @ 125 mls/hr 03/29/19 03:00 03/30/19 01:19 Nacl 0.9% 1000 Ml IV 125 mls/hr DIRECT SHANE Administration Metronidazole 500 mg in 100 mls @ 100 mls/hr 03/29/19 10:00 03/30/19 09:33 Flagyl 500 Mg/100 Ml IV 100 mls/hr Q8H SHANE Administration Protocol Levofloxacin/Dextrose 750 mg in 150 mls @ 100 mls/hr 03/30/19 02:00 03/30/19 01:22 Levaquin 750mg/150ml IV 100 mls/hr Q24H SHANE Administration Protocol Morphine Sulfate 2 mg 03/29/19 02:13 03/30/19 10:13 Morphine IV 2 mg Q4H PRN Administration Pain, Moderate (4-6) Ondansetron HCl 4 mg 03/29/19 02:13 Zofran IV Q4H PRN Nausea And Vomiting Sodium Chloride 10 ml 03/29/19 10:00 03/30/19 09:34 Sodium Chloride Flush Syringe 10 Ml IV 10 ml BID SHANE Administration Sodium Chloride 10 ml 03/29/19 02:13 Sodium Chloride Flush Syringe 10 Ml IV PRN PRN LINE FLUSH Temazepam 15 mg 03/29/19 23:20 03/30/19 00:20 Restoril PO 15 mg QHS PRN Administration Sleep
--- NOTE | 2019-03-30 12:50 | Consultation ---
History of Present Illness - Reason for Consult Consult date: 03/30/19 Reason for consult: Mental Health Evaluation Requesting physician: KAVON BEE - Chief Complaint Chief complaint: "I was never suicidal" - History of Present Psychiatric Illness 48 y.o. whit emily [facility] was consulted to see the patient for medication mgmt. Today the patient was calm and cooperative during the assessment. He stated that he was p laced on a 1013 at another hospital while in the ER for lower leg weakness. He stated that he asked several questions about his medical hx. He stated that he was asked about his mental health and suicidality as well, per the patient he stated, "I thought about suicide before." After making that statement, the patient was placed on a 1013. The patient acknowledged a hx of depression and took Paxil in the past that was effective. He is adamant that he wasn't suicidal in the ER and iisn't suicidal now. Per collateral information per a phone conversation, he stated that he felt like the situation was "overblown." He denies any past suicide attempts by the patient. The patient denies SI/HI's and AVH's. He denies erratic sleep and a poor appetite. He denies recreational drug use and alcohol consumption (etoh). Medications and Allergies Allergies Allergy/AdvReac Type Severity Reaction Status Date / Time Penicillins Allergy Hives Verified 03/28/19 22:11 Home Medications Medication Instructions Recorded Confirmed Last Taken Type No Known Home Medications [No 03/29/19 03/29/19 Unknown History Reported Home Medications] Active Meds: Active Medications Acetaminophen (Tylenol) 650 mg PO Q4H PRN PRN Reason: Pain MILD(1-3)/Fever >100.5/WAGONER Enoxaparin Sodium (Lovenox) 40 mg SUB-Q QDAY@1000 SHANE Last Admin: 03/30/19 09:33 Dose: 40 mg Documented by: Sodium Chloride (Nacl 0.9% 1000 Ml) 1,000 mls @ 125 mls/hr IV DIRECT SHANE Last Admin: 03/30/19 01:19 Dose: 125 mls/hr Documented by: Metronidazole (Flagyl 500 Mg/100 Ml) 500 mg in 100 mls @ 100 mls/hr IV Q8H SHANE; Protocol Last Admin: 03/30/19 09:33 Dose: 100 mls/hr Documented by: Levofloxacin/Dextrose (Levaquin 750mg/150ml) 750 mg in 150 mls @ 100 mls/hr IV Q24H SHANE; Protocol Last Admin: 03/30/19 01:22 Dose: 100 mls/hr Documented by: Morphine Sulfate (Morphine) 2 mg IV Q4H PRN PRN Reason: Pain, Moderate (4-6) Last Admin: 03/30/19 10:13 Dose: 2 mg Documented by: Ondansetron HCl (Zofran) 4 mg IV Q4H PRN PRN Reason: Nausea And Vomiting Sodium Chloride (Sodium Chloride Flush Syringe 10 Ml) 10 ml IV BID SHANE Last Admin: 03/30/19 09:34 Dose: 10 ml Documented by: Sodium Chloride (Sodium Chloride Flush Syringe 10 Ml) 10 ml IV PRN PRN PRN Reason: LINE FLUSH Temazepam (Restoril) 15 mg PO QHS PRN PRN Reason: Sleep Last Admin: 03/30/19 00:20 Dose: 15 mg Documented by: Past psychiatric history - Past Medical History Past Medical History: other (diverticulitis, lwer extremity weakness) Past Surgical History: No surgical history - past Psychiatric treatment and history psychiatric treatment history: Hx of depression. Denies a fam p sy hx. - Social History Social history: Lives alone Mental Status Exam - Vital signs Last Vital Signs Temp 97.8 F 03/30/19 06:08 Pulse 81 03/30/19 06:08 Resp 18 03/30/19 06:08 BP 91/59 03/30/19 06:08 Pulse Ox 94 03/30/19 06:08 - Exam Narrative exam: MSE: Appearance: calm, cooperative Behavior: regular eye contact Speech: regular rate and tone Mood: "okay" Affect: congruent to mood Thought Process: logical Thought Content: denies SI/HI's and AVH's Motor Activity: ambulatory Cognition: A/O x3 Insight: appropriate Judgment: appropriate Results Result Diagrams: 03/30/19 06:02 03/30/19 06:02 Abnormal lab results 03/30/19 03/30/19 Range/Units 06:02 06:02 MCV 102 H (84-94) fl MCH 36 H (28-32) pg MCHC 35 H (32-34) % Lymph % (Auto) 5.7 L (13.4-35.0) % Lymph # 0.6 L (1.2-5.4) K/mm3 Seg Neutrophils % 87.0 H (40.0-70.0) % Seg Neutrophils # 9.6 H (1.8-7.7) K/mm3 Sodium 135 L (137-145) mmol/L Glucose 119 H (75-100) mg/dL Calcium 8.0 L (8.4-10.2) mg/dL All other labs normal. Assessment and Plan Assessment and plan: Impression: Hx of Depression per the patient. Today the patient was calm and cooperative during the assessment. The patient is no threat to self. Recommendation/Plan: Rescind 1013. Start Paxil 10 mg PO daily for depression. Discussed possible suicidality/medication induced blade with the patient reference Paxil, he verbalized understanding. I will follow up with the patient in 24 hours. Dispo: The patient will be given a referral fro outpatient psy services for his local; area. Will staff with Dr. Jose Marquez.
--- NOTE | 2019-03-30 13:09 | Progress Note ---
Assessment and Plan Pt states feeling "a little better", "less pain". slightly tachypneic. now on nasal cannula O2 Afebrile Abd decreased tenderness but still present. 2+ distended psych eval appreciated higher wbc noted clinically stable continue NPO, IV antibiotics f/u CT abd in 4-5 days Selected Entries 03/30/19 11:08 Temperature 98.3 F Pulse Rate 86 Respiratory 20 Rate Blood Pressure 116/87 Laboratory Tests 03/28/19 03/30/19 22:21 06:02 WBC 7.5 11.0 Objective Vital Signs - 12hr 03/30/19 03/30/19 06:08 11:08 Temperature 97.8 F 98.3 F Pulse Rate 81 86 Respiratory 18 20 Rate Blood Pressure 91/59 116/87 O2 Sat by Pulse 94 96 Oximetry - Labs 03/30/19 06:02 03/30/19 06:02 Diabetes panel 03/30/19 Range/Units 06:02 Sodium 135 L (137-145) mmol/L Potassium 3.8 (3.6-5.0) mmol/L Chloride 103.6 (98-107) mmol/L Carbon Dioxide 22 (22-30) mmol/L BUN 12 (9-20) mg/dL Creatinine 0.8 (0.8-1.5) mg/dL Glucose 119 H (75-100) mg/dL Calcium 8.0 L (8.4-10.2) mg/dL Calcium panel 03/30/19 Range/Units 06:02 Calcium 8.0 L (8.4-10.2) mg/dL Pituitary panel 03/30/19 Range/Units 06:02 Sodium 135 L (137-145) mmol/L Potassium 3.8 (3.6-5.0) mmol/L Chloride 103.6 (98-107) mmol/L Carbon Dioxide 22 (22-30) mmol/L BUN 12 (9-20) mg/dL Creatinine 0.8 (0.8-1.5) mg/dL Glucose 119 H (75-100) mg/dL Calcium 8.0 L (8.4-10.2) mg/dL Adrenal panel 03/30/19 Range/Units 06:02 Sodium 135 L (137-145) mmol/L Potassium 3.8 (3.6-5.0) mmol/L Chloride 103.6 (98-107) mmol/L Carbon Dioxide 22 (22-30) mmol/L BUN 12 (9-20) mg/dL Creatinine 0.8 (0.8-1.5) mg/dL Glucose 119 H (75-100) mg/dL Calcium 8.0 L (8.4-10.2) mg/dL
--- NOTE | 2019-03-30 14:02 | Event Note ---
Date: 03/30/19 Patient off the floor at time of rounds (imaging/x ray); will follow-up at later time with further recommendations to follow
--- NOTE | 2019-03-30 14:13 | XRay Report ---
CHEST 2 VIEWS INDICATION: sob. Acute generalized shortness of breath COMPARISON: Chest x-ray from 03/28/2019 FINDINGS: Support devices: None. Heart: Within normal limits. Lungs/pleura: Persisting gaseous distention of the colon with elevation of the left hemidiaphragm and underlying left basilar compressive atelectasis. Otherwise clear lungs. No pneumothorax. Additional findings: None. IMPRESSION: Unchanged exam. Signer Name: Chucky Lr MD Signed: 03/30/2019 2:08 PM Workstation Name: [id number]
[2019-03-30] MEDS: PAXIL PO SCH (14:57)
[2019-03-31] MEDS: FLAGYL 500 MG/100 ML 500 MG/100 ML BAG IV SCH ×3 (01:41→18:00)
[2019-03-31] MEDS: LEVAQUIN 750MG/150ML 750 MG/150 ML BAG IV SCH (01:43)
[2019-03-31] MEDS: MORPHINE IV PRN ×2 (02:58→14:15)
[2019-03-31 06:26] LABS: Basophils % (Auto) 0.4 % (0.0-1.8); Eosinophils % (Auto) 0.2 % (0.0-4.3); Hematocrit 41.3 % (35.5-45.6); Hemoglobin 13.8 gm/dl (11.8-15.2); Lymphocytes # (Auto) 0.5 K/mm3 (1.2-5.4); Lymphocytes % (Auto) 4.2 % (13.4-35.0); Mean Corpuscular HGB Conc 33 % (32-34); Mean Corpuscular Volume 104 fl (84-94); Monocytes # (Auto) 0.7 K/mm3 (0.0-0.8); Monocytes % (Auto) 5.7 % (0.0-7.3); Platelet Count 244 K/mm3 (140-440); Red Blood Count 3.99 M/mm3 (3.65-5.03); Red Cell Distribution Width 14.2 % (13.2-15.2)
[2019-03-31] MEDS: NACL 0.9% 1000 ML 1,000 ML IV SCH ×2 (08:52→19:56)
[2019-03-31] MEDS: LOVENOX SUB-Q SCH (10:22)
[2019-03-31] MEDS: PAXIL PO SCH (10:23)
--- NOTE | 2019-03-31 11:07 | Gastroenterology Progress Note ---
<LINA LAROSE - Last Filed: 03/31/19 11:10> Assessment and Plan 1.acute diverticulitis with associated small abscesses seen on CT -afebrile -WBC 11.6 -clinically, patient is stable with abd pain slowly improving. No N/V or signs of bleeding. Tolerating ice chips. -start on clears if okay with surgery -continue antibiotics and supportive care -recommend patient f/u upon d/c to schedule outpatient colonoscopy (~6-8 weeks) to r/o neoplasm once acute process has resolved -No further recommendations per GI standpoint at this time-will defer further management to surgery -will sign off, please call if needed Subjective Date of service: 03/31/19 Principal diagnosis: diverticulitis Interval history: No acute distress. Abd pain slowly improving. No N/V or signs of bleeding. Objective - Constitutional Vitals: Temp Pulse Resp BP Pulse Ox 97.7 F 90 18 125/87 98 03/30/19 17:33 03/30/19 17:33 03/31/19 03:28 03/30/19 17:33 03/31/19 09:28 General appearance: no acute distress - Respiratory Respiratory effort: normal - Cardiovascular Rhythm: regular - Gastrointestinal General gastrointestinal: Present: soft, distended (slightly), normal bowel sounds - Neurologic Neurological: alert and oriented x3 - Labs CBC & Chem 7: 03/31/19 06:03 03/30/19 06:02 Labs: Laboratory Results - last 24 hr 03/31/19 06:03 WBC 11.6 H RBC 3.99 Hgb 13.8 Hct 41.3 MCV 104 H MCH 35 H MCHC 33 RDW 14.2 Plt Count 244 Lymph % (Auto) 4.2 L Stanley % (Auto) 5.7 Eos % (Auto) 0.2 Baso % (Auto) 0.4 Lymph # 0.5 L Stanley # 0.7 Eos # 0.0 Baso # 0.0 Seg Neutrophils % 89.5 H Seg Neutrophils # 10.4 H <ERIK CHAVEZ - Last Filed: 03/31/19 16:17> Assessment and Plan Patient seen and examined. Agree with note above. Cont abx and repeat ct scan per surgery recommendations. f/u in gi clinic in 1 month. please call with questions. Objective - Constitutional Vitals: Temp Pulse Resp BP Pulse Ox 98.6 F 83 24 134/95 96 03/31/19 12:40 03/31/19 12:40 03/31/19 12:40 03/31/19 12:40 03/31/19 12:40 - Labs CBC & Chem 7: 03/31/19 06:03 03/30/19 06:02 Labs: Laboratory Results - last 24 hr 03/31/19 06:03 WBC 11.6 H RBC 3.99 Hgb 13.8 Hct 41.3 MCV 104 H MCH 35 H MCHC 33 RDW 14.2 Plt Count 244 Lymph % (Auto) 4.2 L Stanley % (Auto) 5.7 Eos % (Auto) 0.2 Baso % (Auto) 0.4 Lymph # 0.5 L Stanley # 0.7 Eos # 0.0 Baso # 0.0 Seg Neutrophils % 89.5 H Seg Neutrophils # 10.4 H
--- NOTE | 2019-03-31 12:59 | Progress Note ---
Subjective - Reason for Consult Consult date: 03/31/19 Reason for consult: Psychiatry Follow-up - Chief Complaint Chief complaint: " just want to feel better" 48 y.o. white male who presented to the ER for fever from [facility]. Psychiatry was consulted to see the patient for medication mgmt. Today the patient was calm and cooperative during the assessment. He sated that he look forward to being discharge. He denies SI/HI;s, AVH's, being depressed, and any side effects of his medication. Mental Status Exam - Vital signs Last Vital Signs Temp 98.6 F 03/31/19 12:40 Pulse 83 03/31/19 12:40 Resp 24 03/31/19 12:40 BP 134/95 03/31/19 12:40 Pulse Ox 96 03/31/19 12:40 - Exam Narrative exam: MSE: Appearance: calm, cooperative Behavior: regular eye contact Speech: regular rate and tone Mood: "well" Affect: congruent to mood Thought Process: logical Thought Content: denies SI/HI's and AVH's Motor Activity: ambulatory Cognition: A/O x3 Insight: appropriate Judgment: appropriate Assessment and Plan Impression: Hx of Depression per the patient. Today the patient was calm and cooperative during the assessment. The patient is no threat to self. Recommendation/Plan: Continue Oaxil 10 mg PO daily for depression. Discussed possible suicidality/medication induced blade with the patient reference Fernando, he verbalized understanding. Psy sign off. Dispo: The patient was given a referral fro outpatient psy services for his local; area. Will staff with Dr. Jose Marquez.
--- NOTE | 2019-03-31 13:06 | Progress Note ---
Assessment and Plan Pt feeling better. less pain. + BM Abd obese, soft. decreased tenderness. hypoactive BS CxR - L basilar atelectasis surgically stable attempt cl liq diet no carbonated f/u CT abd in a few days Selected Entries 03/31/19 12:40 Temperature 98.6 F Pulse Rate 83 Respiratory 24 Rate Blood Pressure 134/95 Laboratory Tests 03/31/19 06:03 WBC 11.6 H Hgb 13.8 Hct 41.3 Objective Vital Signs - 12hr 03/31/19 03/31/19 03/31/19 02:58 03:28 05:18 Temperature 97.5 F L Pulse Rate 77 Respiratory 18 18 20 Rate Blood Pressure 126/89 O2 Sat by Pulse 96 Oximetry 03/31/19 03/31/19 09:28 12:40 Temperature 98.6 F Pulse Rate 83 Respiratory 24 Rate Blood Pressure 134/95 O2 Sat by Pulse 98 96 Oximetry - Labs 03/31/19 06:03 03/30/19 06:02
[2019-03-31] MEDS: SODIUM CHLORIDE FLUSH SYRINGE 10 ML IV SCH ×2 (14:15→21:57)
--- NOTE | 2019-03-31 15:30 | Progress Note ---
Assessment and Plan Assessment and plan: 48-year-old man with history of hypertension diabetes and mood disorder who presented from psych facility for fever Sepsis/acute diverticulitis with abscess Continue antibiotics, general surgery input appreciated, there is no evidence of perforation -ADAT per GS Suicidal ideation/mood disorder/major depression mgt per psych, 1013 has been rescinded Hyponatremia; improved with IVF Hypertension and diabetes Optimize medications DVT prophylaxis; Lovenox History Interval history: Review of systems Constitutional: no fever CVS: No chest pain, no orthopnea, no dyspnea on exertion, no pedal edema GI: Abdominal pain is improved Respiratory: no wheezing, no coughing Hospitalist Physical - Physical exam Narrative exam: General.: Appears well, no distress, nontoxic HEENT: Moist mucous membranes, extraocular muscles intact, no lymphadenopathy Neck: supple Cardiac: S1-S2 heard Lungs: clear to auscultation bilaterally Abdomen: soft , tender, nondistended, bowel sounds positive Extremities: no edema clubbing or cyanosis Skin: no rash or lesions Neurologic: no gross focal deficits Psych: calm, and cooperative - Constitutional Vitals: Temp Pulse Resp BP Pulse Ox 98.6 F 83 24 134/95 96 03/31/19 12:40 03/31/19 12:40 03/31/19 12:40 03/31/19 12:40 03/31/19 12:40 Results - Labs CBC & Chem 7: 03/31/19 06:03 03/30/19 06:02 Labs: Laboratory Last Values WBC 11.6 K/mm3 (4.5-11.0) H 03/31/19 06:03 RBC 3.99 M/mm3 (3.65-5.03) 03/31/19 06:03 Hgb 13.8 gm/dl (11.8-15.2) 03/31/19 06:03 Hct 41.3 % (35.5-45.6) 03/31/19 06:03 MCV 104 fl (84-94) H 03/31/19 06:03 MCH 35 pg (28-32) H 03/31/19 06:03 MCHC 33 % (32-34) 03/31/19 06:03 RDW 14.2 % (13.2-15.2) 03/31/19 06:03 Plt Count 244 K/mm3 (140-440) 03/31/19 06:03 Lymph % (Auto) 4.2 % (13.4-35.0) L 03/31/19 06:03 [place] % (Auto) 5.7 % (0.0-7.3) 03/31/19 06:03 Eos % (Auto) 0.2 % (0.0-4.3) 03/31/19 06:03 Baso % (Auto) 0.4 % (0.0-1.8) 03/31/19 06:03 Lymph # 0.5 K/mm3 (1.2-5.4) L 03/31/19 06:03 [place] # 0.7 K/mm3 (0.0-0.8) 03/31/19 06:03 Eos # 0.0 K/mm3 (0.0-0.4) 03/31/19 06:03 Baso # 0.0 K/mm3 (0.0-0.1) 03/31/19 06:03 Seg Neutrophils % 89.5 % (40.0-70.0) H 03/31/19 06:03 Seg Neutrophils # 10.4 K/mm3 (1.8-7.7) H 03/31/19 06:03 Sodium 135 mmol/L (137-145) L 03/30/19 06:02 Potassium 3.8 mmol/L (3.6-5.0) 03/30/19 06:02 Chloride 103.6 mmol/L (98-107) 03/30/19 06:02 Carbon Dioxide 22 mmol/L (22-30) 03/30/19 06:02 13 mmol/L 03/30/19 06:02 BUN 12 mg/dL (9-20) 03/30/19 06:02 0.8 mg/dL (0.8-1.5) 03/30/19 06:02 Estimated GFR > 60 ml/min 03/30/19 06:02 15 % 03/30/19 06:02 Glucose 119 mg/dL (75-100) H 03/30/19 06:02 Lactic Acid 1.60 mmol/L (0.7-2.0) 03/28/19 22:21 Calcium 8.0 mg/dL (8.4-10.2) L 03/30/19 06:02 1.30 mg/dL (0.1-1.2) H 03/28/19 22:21 AST 37 units/L (5-40) 03/28/19 22:21 ALT 96 units/L (7-56) H 03/28/19 22:21 46 units/L (35-129) 03/28/19 22:21 5.9 g/dL (6.3-8.2) L 03/28/19 22:21 2.7 g/dL (3.9-5) L 03/28/19 22:21 0.8 % 03/28/19 22:21 13 units/L (13-60) 03/29/19 01:06 TSH 1.110 mlU/mL (0.270-4.200) 03/28/19 22:21 Free T4 1.41 ng/dL (0.76-1.46) 03/28/19 22:21 [place] (Yellow) 03/28/19 23:31 Slightly-cloudy (Clear) 03/28/19 23:31 6.0 (5.0-7.0) 03/28/19 23:31 Ur Specific [place] 1.016 (1.003-1.030) 03/28/19 23:31 30 mg/dl mg/dL (Negative) 03/28/19 23:31 Neg mg/dL (Negative) 03/28/19 23:31 Neg mg/dL (Negative) 03/28/19 23:31 Mod (Negative) 03/28/19 23:31 Neg (Negative) 03/28/19 23:31 Neg (Negative) 03/28/19 23:31 < 2.0 mg/dL (<2.0) 03/28/19 23:31 Ur Leukocyte Esterase Neg (Negative) 03/28/19 23:31 1.0 /HPF (0.0-6.0) 03/28/19 23:31 4.0 /HPF (0.0-6.0) 03/28/19 23:31 U Epithel Cells (Auto) 1.0 /HPF (0-13.0) 03/28/19 23:31 Few /HPF 03/28/19 23:31 Active Medications - Current Medications Current Medications: Generic Name Dose Route Start Last Admin Trade Name Freq PRN Reason Stop Dose Admin Acetaminophen 650 mg 03/29/19 02:13 Tylenol PO Q4H PRN Pain MILD(1-3)/Fever >100.5/WAGONER Enoxaparin Sodium 40 mg 03/29/19 10:00 03/31/19 10:22 Lovenox SUB-Q 40 mg QDAY@1000 SHANE Administration Sodium Chloride 1,000 mls @ 125 mls/hr 03/29/19 03:00 03/31/19 08:52 Nacl 0.9% 1000 Ml IV 125 mls/hr DIRECT SHANE Administration Metronidazole 500 mg in 100 mls @ 100 mls/hr 03/29/19 10:00 03/31/19 10:24 Flagyl 500 Mg/100 Ml IV 100 mls/hr Q8H SHANE Administration Protocol Levofloxacin/Dextrose 750 mg in 150 mls @ 100 mls/hr 03/30/19 02:00 03/31/19 01:43 Levaquin 750mg/150ml IV 100 mls/hr Q24H SHANE Administration Protocol Morphine Sulfate 2 mg 03/29/19 02:13 03/31/19 14:15 Morphine IV 2 mg Q4H PRN Administration Pain, Moderate (4-6) Ondansetron HCl 4 mg 03/29/19 02:13 Zofran IV Q4H PRN Nausea And Vomiting Paroxetine HCl 10 mg 03/30/19 13:00 03/31/19 10:23 Paxil PO 10 mg QDAY SHANE Administration Sodium Chloride 10 ml 03/29/19 10:00 03/31/19 14:15 Sodium Chloride Flush Syringe 10 Ml IV 10 ml BID SHANE Administration Sodium Chloride 10 ml 03/29/19 02:13 Sodium Chloride Flush Syringe 10 Ml IV PRN PRN LINE FLUSH Temazepam 15 mg 03/29/19 23:20 03/30/19 22:01 Restoril PO 15 mg QHS PRN Administration Sleep
--- NOTE | 2019-03-31 18:28 | Consultation ---
History of Present Illness Consult date: 03/31/19 Requesting physician: SHAINA BIRCH Reason for consult: dyspnea History of present illness: 48 yo admitted with abd pain and fever, found to have diverticulitis with abscess undergoing conservative care. Has had some increased SOB b/c it hurts in the abdomen to take deep breaths, and he has increased abd distension above his usual level of abd obesity. No chest pain, cough, sputum, hemoptysis. + Smoking hx. Active Medications Acetaminophen (Tylenol) 650 mg PO Q4H PRN PRN Reason: Pain MILD(1-3)/Fever >100.5/WAGONER Albuterol/Ipratropium (Duoneb *Not For Prn Use*) 1 ampul IH TIDRT [facility] Enoxaparin Sodium (Lovenox) 40 mg SUB-Q QDAY@1000 SHANE Last Admin: 03/31/19 10:22 Dose: 40 mg Documented by: Sodium Chloride (Nacl 0.9% 1000 Ml) 1,000 mls @ 125 mls/hr IV DIRECT SHANE Last Admin: 03/31/19 08:52 Dose: 125 mls/hr Documented by: Metronidazole (Flagyl 500 Mg/100 Ml) 500 mg in 100 mls @ 100 mls/hr IV Q8H SHANE; Protocol Last Admin: 03/31/19 10:24 Dose: 100 mls/hr Documented by: Levofloxacin/Dextrose (Levaquin 750mg/150ml) 750 mg in 150 mls @ 100 mls/hr IV Q24H SHANE; Protocol Last Admin: 03/31/19 01:43 Dose: 100 mls/hr Documented by: Morphine Sulfate (Morphine) 2 mg IV Q4H PRN PRN Reason: Pain, Moderate (4-6) Last Admin: 03/31/19 14:15 Dose: 2 mg Documented by: Ondansetron HCl (Zofran) 4 mg IV Q4H PRN PRN Reason: Nausea And Vomiting Paroxetine HCl (Paxil) 10 mg PO QDAY [facility] Last Admin: 03/31/19 10:23 Dose: 10 mg Documented by: Sodium Chloride (Sodium Chloride Flush Syringe 10 Ml) 10 ml IV BID [facility] Last Admin: 03/31/19 14:15 Dose: 10 ml Documented by: Sodium Chloride (Sodium Chloride Flush Syringe 10 Ml) 10 ml IV PRN PRN PRN Reason: LINE FLUSH Temazepam (Restoril) 15 mg PO QHS PRN PRN Reason: Sleep Last Admin: 03/30/19 22:01 Dose: 15 mg Documented by: Past History Past Medical History: other (diverticulitis, lwer extremity weakness) Past Surgical History: No surgical history Social history: Lives alone, full code. denies: smoking, prescription drug abuse, IV drug use Family history: no significant family history, other (No pulm issues reported) Medications and Allergies Allergies Allergy/AdvReac Type Severity Reaction Status Date / Time Penicillins Allergy Hives Verified 03/28/19 22:11 Home Medications Medication Instructions Recorded Confirmed Last Taken Type No Known Home Medications [No 03/29/19 03/29/19 Unknown History Reported Home Medications] Active Meds: Active Medications Acetaminophen (Tylenol) 650 mg PO Q4H PRN PRN Reason: Pain MILD(1-3)/Fever >100.5/WAGONER Enoxaparin Sodium (Lovenox) 40 mg SUB-Q QDAY@1000 SHANE Last Admin: 03/31/19 10:22 Dose: 40 mg Documented by: Sodium Chloride (Nacl 0.9% 1000 Ml) 1,000 mls @ 125 mls/hr IV DIRECT SHANE Last Admin: 03/31/19 08:52 Dose: 125 mls/hr Documented by: Metronidazole (Flagyl 500 Mg/100 Ml) 500 mg in 100 mls @ 100 mls/hr IV Q8H SHANE; Protocol Last Admin: 03/31/19 10:24 Dose: 100 mls/hr Documented by: Levofloxacin/Dextrose (Levaquin 750mg/150ml) 750 mg in 150 mls @ 100 mls/hr IV Q24H SHANE; Protocol Last Admin: 03/31/19 01:43 Dose: 100 mls/hr Documented by: Morphine Sulfate (Morphine) 2 mg IV Q4H PRN PRN Reason: Pain, Moderate (4-6) Last Admin: 03/31/19 14:15 Dose: 2 mg Documented by: Ondansetron HCl (Zofran) 4 mg IV Q4H PRN PRN Reason: Nausea And Vomiting Paroxetine HCl (Paxil) 10 mg PO QDAY SHANE Last Admin: 03/31/19 10:23 Dose: 10 mg Documented by: Sodium Chloride (Sodium Chloride Flush Syringe 10 Ml) 10 ml IV BID [facility] Last Admin: 03/31/19 14:15 Dose: 10 ml Documented by: Sodium Chloride (Sodium Chloride Flush Syringe 10 Ml) 10 ml IV PRN PRN PRN Reason: LINE FLUSH Temazepam (Restoril) 15 mg PO QHS PRN PRN Reason: Sleep Last Admin: 03/30/19 22:01 Dose: 15 mg Documented by: Review of Systems All systems: negative Physical Examination Vital signs: Vital Signs Pulse Resp Pulse Ox 90 27 H 96 03/28/19 21:57 03/28/19 21:57 03/28/19 21:57 General appearance: no acute distress, alert Eyes: non-icteric ENT: oropharynx moist Neck: supple Effort: normal (shallow breathing) Ascultation: Bilateral: diminished breath sounds (bases, worst LLL) Cardiovascular: regular rate and rhythm (no mrg) Gastrointestinal: hypoactive bowel sounds, soft, other (distended) Integumentary: normal Extremities: no cyanosis, no edema, pink and warm Musculoskeletal: no deformities normal mental status, non-focal exam, pupils equal and round mood appropriate, affect normal Results - Laboratory Findings CBC and BMP: 03/31/19 06:03 03/30/19 06:02 Abnormal lab findings: Abnormal Labs 03/28/19 03/28/19 03/30/19 22:21 22:21 06:02 WBC Hgb 15.5 H MCV 102 H 102 H MCH 36 H 36 H MCHC 35 H 35 H Lymph % (Auto) 11.5 L 5.7 L [place] % (Auto) 10.8 H Lymph # 0.9 L 0.6 L Seg Neutrophils % 76.8 H 87.0 H Seg Neutrophils # 9.6 H Sodium 130 L Chloride 97.4 L BUN 8 L Glucose 118 H Calcium Total Bilirubin 1.30 H ALT 96 H Total Protein 5.9 L Albumin 2.7 L 03/30/19 03/31/19 06:02 06:03 WBC 11.6 H Hgb MCV 104 H MCH 35 H MCHC Lymph % (Auto) 4.2 L [place] % (Auto) Lymph # 0.5 L Seg Neutrophils % 89.5 H Seg Neutrophils # 10.4 H Sodium 135 L Chloride BUN Glucose 119 H Calcium 8.0 L Total Bilirubin ALT Total Protein Albumin - Diagnostic Findings Chest x-ray: report reviewed, image reviewed CT scan - chest: report reviewed, image reviewed Assessment and Plan Imp: 1. Diverticulitis/abscess 2. Sepsis 3. Elevated hemidiaphragm, cannot r/o paralysis 4. Chronic nicotine dependence, cigarettes Rec: 1. Duonebs TID 2. Incentive spirometry 3. SOB likely related to #'s 1 and 3; consider sniff test to eval. L diaphragm prior to d/c, although this could be done as an outpatient 4. DVT PPx Plan of care reviewed w/ patient, he understands/agrees Thanks kindly for the consult. Will follow w/ you.
[2019-03-31] MEDS: DUONEB *Not for PRN Use IH SCH (21:11)
[2019-03-31] MEDS: RESTORIL PO PRN (22:03)
[2019-04-01] MEDS: MORPHINE IV PRN ×4 (00:09→23:13)
[2019-04-01] MEDS: FLAGYL 500 MG/100 ML 500 MG/100 ML BAG IV SCH ×3 (02:45→17:08)
[2019-04-01] MEDS: LEVAQUIN 750MG/150ML 750 MG/150 ML BAG IV SCH (03:57)
[2019-04-01] MEDS: NACL 0.9% 1000 ML 1,000 ML IV SCH (04:01)
[2019-04-01] MEDS: DUONEB *Not for PRN Use IH SCH ×3 (07:42→20:33)
[2019-04-01] MEDS: LOVENOX SUB-Q SCH (09:20)
[2019-04-01] MEDS: PAXIL PO SCH (09:20)
[2019-04-01] MEDS: SODIUM CHLORIDE FLUSH SYRINGE 10 ML IV SCH ×2 (09:21→23:49)
--- NOTE | 2019-04-01 10:25 | Progress Note ---
Assessment and Plan Pt continues to slowly feel better. royal cl liq diet Abd soft. decreased tenderness stable - improving continue cl liq f/u CT in am Selected Entries 04/01/19 04/01/19 05:30 07:51 Temperature 97.3 F L Pulse Rate [ 88 Bilateral Throughout] Blood Pressure 131/92 Objective Vital Signs - 12hr 03/31/19 04/01/19 04/01/19 23:48 05:30 07:43 Temperature 97.2 F L 97.3 F L Pulse Rate 86 78 Pulse Rate [ 85 Bilateral Throughout] Respiratory 22 20 Rate Respiratory 18 Rate [Bilateral Throughout] Blood Pressure 131/95 131/92 O2 Sat by Pulse 96 98 96 Oximetry 04/01/19 07:51 Temperature Pulse Rate Pulse Rate [ 88 Bilateral Throughout] Respiratory Rate Respiratory 18 Rate [Bilateral Throughout] Blood Pressure O2 Sat by Pulse Oximetry - Labs 03/31/19 06:03 03/30/19 06:02
--- NOTE | 2019-04-01 13:02 | Progress Note ---
Assessment and Plan Imp: 1. Diverticulitis/abscess 2. Sepsis 3. Elevated hemidiaphragm, cannot r/o paralysis 4. Chronic nicotine dependence, cigarettes Rec: 1. Duonebs TID 2. Incentive spirometry 3. SOB likely related to #'s 1 and 3 & should improve with resolution of abdominal issues; consider sniff test to eval. L diaphragm prior to d/c, although this could be done as an outpatient 4. DVT PPx Plan of care reviewed w/ patient, he understands/agrees Subjective Date of service: 04/01/19 Principal diagnosis: diverticulitis Interval history: No events. SOB a bit better. Abd pain/distension similar. No new complaints. Active Medications Acetaminophen (Tylenol) 650 mg PO Q4H PRN PRN Reason: Pain MILD(1-3)/Fever >100.5/WAGONER Albuterol/Ipratropium (Duoneb *Not For Prn Use*) 1 ampul IH TIDRT [facility] Last Admin: 04/01/19 13:00 Dose: 1 ampul Documented by: Enoxaparin Sodium (Lovenox) 40 mg SUB-Q QDAY@1000 SHANE Last Admin: 04/01/19 09:20 Dose: 40 mg Documented by: Sodium Chloride (Nacl 0.9% 1000 Ml) 1,000 mls @ 125 mls/hr IV DIRECT [facility] Last Admin: 04/01/19 04:01 Dose: 125 mls/hr Documented by: Metronidazole (Flagyl 500 Mg/100 Ml) 500 mg in 100 mls @ 100 mls/hr IV Q8H [facility]; Protocol Last Admin: 04/01/19 09:19 Dose: 100 mls/hr Documented by: Levofloxacin/Dextrose (Levaquin 750mg/150ml) 750 mg in 150 mls @ 100 mls/hr IV Q24H [facility]; Protocol Last Admin: 04/01/19 03:57 Dose: 100 mls/hr Documented by: Morphine Sulfate (Morphine) 2 mg IV Q4H PRN PRN Reason: Pain, Moderate (4-6) Last Admin: 04/01/19 09:21 Dose: 2 mg Documented by: Ondansetron HCl (Zofran) 4 mg IV Q4H PRN PRN Reason: Nausea And Vomiting Paroxetine HCl (Paxil) 10 mg PO QDAY [facility] Last Admin: 04/01/19 09:20 Dose: 10 mg Documented by: Sodium Chloride (Sodium Chloride Flush Syringe 10 Ml) 10 ml IV BID SHANE Last Admin: 04/01/19 09:21 Dose: 10 ml Documented by: Sodium Chloride (Sodium Chloride Flush Syringe 10 Ml) 10 ml IV PRN PRN PRN Reason: LINE FLUSH Temazepam (Restoril) 15 mg PO QHS PRN PRN Reason: Sleep Last Admin: 03/31/19 22:03 Dose: 15 mg Documented by: Objective Vital Signs - 12hr 04/01/19 04/01/19 04/01/19 05:30 07:43 07:51 Temperature 97.3 F L Pulse Rate 78 Pulse Rate [ 85 88 Bilateral Throughout] Respiratory 20 Rate Respiratory 18 18 Rate [Bilateral Throughout] Blood Pressure 131/92 O2 Sat by Pulse 98 96 Oximetry Constitutional: no acute distress, alert Eyes: non-icteric ENT: oropharynx moist Neck: supple Effort: normal (shallow breathing) Ascultation: Bilateral: diminished breath sounds (bases, worst LLL) Cardiovascular: regular rate and rhythm (no mrg) Gastrointestinal: hypoactive bowel sounds, soft, other (distended) Integumentary: normal Extremities: no cyanosis, no edema, pink and warm Neurologic: normal mental status, non-focal exam, pupils equal and round Psychiatric: mood appropriate, affect normal CBC and BMP: 03/31/19 06:03 03/30/19 06:02 Abnormal lab findings: Abnormal Labs 03/28/19 03/28/19 03/30/19 22:21 22:21 06:02 WBC Hgb 15.5 H MCV 102 H 102 H MCH 36 H 36 H MCHC 35 H 35 H Lymph % (Auto) 11.5 L 5.7 L [place] % (Auto) 10.8 H Lymph # 0.9 L 0.6 L Seg Neutrophils % 76.8 H 87.0 H Seg Neutrophils # 9.6 H Sodium 130 L Chloride 97.4 L BUN 8 L Glucose 118 H Calcium Total Bilirubin 1.30 H ALT 96 H Total Protein 5.9 L Albumin 2.7 L 03/30/19 03/31/19 06:02 06:03 WBC 11.6 H Hgb MCV 104 H MCH 35 H MCHC Lymph % (Auto) 4.2 L [place] % (Auto) Lymph # 0.5 L Seg Neutrophils % 89.5 H Seg Neutrophils # 10.4 H Sodium 135 L Chloride BUN Glucose 119 H Calcium 8.0 L Total Bilirubin ALT Total Protein Albumin Chest x-ray: report reviewed, image reviewed
--- NOTE | 2019-04-01 18:26 | Progress Note ---
Assessment and Plan Assessment and plan: 48-year-old man with history of hypertension diabetes and mood disorder who presented from psych facility for fever Sepsis/acute diverticulitis with abscess Continue antibiotics, general surgery input appreciated, there is no evidence of perforation Sp US guided drainage of intra abdominal fluid collection on 04/04, planned for drain removal today -ADAT per GS Suicidal ideation/mood disorder/major depression mgt per psych, 1013 has been rescinded Hyponatremia; improved with IVF Hypertension and diabetes Optimize medications acute resp failure mgt per pulmonology likely splinting due to pain given nebs, and oxygen Tobacco abuse counseled on cessation for 11 minutes preventative health counseling, 17 mins spent DVT prophylaxis; Lovenox History Interval history: Review of systems Constitutional: no fever CVS: No chest pain, no orthopnea, no dyspnea on exertion, no pedal edema GI: Abdominal pain is improved Respiratory: no wheezing, no coughing, sob is improving Hospitalist Physical - Physical exam Narrative exam: General.: Appears well, no distress, nontoxic HEENT: Moist mucous membranes, extraocular muscles intact, no lymphadenopathy Neck: supple Cardiac: S1-S2 heard Lungs: clear to auscultation bilaterally Abdomen: soft , tender, distended, bowel sounds positive Extremities: no edema clubbing or cyanosis Skin: no rash or lesions Neurologic: no gross focal deficits Psych: calm, and cooperative - Constitutional Vitals: Temp Pulse Resp BP Pulse Ox 98.0 F 83 20 129/93 94 04/01/19 16:19 04/01/19 16:19 04/01/19 16:19 04/01/19 16:19 04/01/19 16:19 Results - Labs CBC & Chem 7: 04/09/19 05:22 04/09/19 05:22 Labs: Laboratory Last Values WBC 11.6 K/mm3 (4.5-11.0) H 03/31/19 06:03 RBC 3.99 M/mm3 (3.65-5.03) 03/31/19 06:03 Hgb 13.8 gm/dl (11.8-15.2) 03/31/19 06:03 Hct 41.3 % (35.5-45.6) 03/31/19 06:03 MCV 104 fl (84-94) H 03/31/19 06:03 MCH 35 pg (28-32) H 03/31/19 06:03 MCHC 33 % (32-34) 03/31/19 06:03 RDW 14.2 % (13.2-15.2) 03/31/19 06:03 Plt Count 244 K/mm3 (140-440) 03/31/19 06:03 Lymph % (Auto) 4.2 % (13.4-35.0) L 03/31/19 06:03 [place] % (Auto) 5.7 % (0.0-7.3) 03/31/19 06:03 Eos % (Auto) 0.2 % (0.0-4.3) 03/31/19 06:03 Baso % (Auto) 0.4 % (0.0-1.8) 03/31/19 06:03 Lymph # 0.5 K/mm3 (1.2-5.4) L 03/31/19 06:03 [place] # 0.7 K/mm3 (0.0-0.8) 03/31/19 06:03 Eos # 0.0 K/mm3 (0.0-0.4) 03/31/19 06:03 Baso # 0.0 K/mm3 (0.0-0.1) 03/31/19 06:03 Seg Neutrophils % 89.5 % (40.0-70.0) H 03/31/19 06:03 Seg Neutrophils # 10.4 K/mm3 (1.8-7.7) H 03/31/19 06:03 Sodium 135 mmol/L (137-145) L 03/30/19 06:02 Potassium 3.8 mmol/L (3.6-5.0) 03/30/19 06:02 Chloride 103.6 mmol/L (98-107) 03/30/19 06:02 Carbon Dioxide 22 mmol/L (22-30) 03/30/19 06:02 13 mmol/L 03/30/19 06:02 BUN 12 mg/dL (9-20) 03/30/19 06:02 0.8 mg/dL (0.8-1.5) 03/30/19 06:02 Estimated GFR > 60 ml/min 03/30/19 06:02 15 % 03/30/19 06:02 Glucose 119 mg/dL (75-100) H 03/30/19 06:02 Lactic Acid 1.60 mmol/L (0.7-2.0) 03/28/19 22:21 Calcium 8.0 mg/dL (8.4-10.2) L 03/30/19 06:02 1.30 mg/dL (0.1-1.2) H 03/28/19 22:21 AST 37 units/L (5-40) 03/28/19 22:21 ALT 96 units/L (7-56) H 03/28/19 22:21 46 units/L (35-129) 03/28/19 22:21 5.9 g/dL (6.3-8.2) L 03/28/19 22:21 2.7 g/dL (3.9-5) L 03/28/19 22:21 0.8 % 03/28/19 22:21 13 units/L (13-60) 03/29/19 01:06 TSH 1.110 mlU/mL (0.270-4.200) 03/28/19 22:21 Free T4 1.41 ng/dL (0.76-1.46) 03/28/19 22:21 [place] (Yellow) 03/28/19 23:31 Slightly-cloudy (Clear) 03/28/19 23:31 6.0 (5.0-7.0) 03/28/19 23:31 Ur Specific [place] 1.016 (1.003-1.030) 03/28/19 23:31 30 mg/dl mg/dL (Negative) 03/28/19 23:31 Neg mg/dL (Negative) 03/28/19 23:31 Neg mg/dL (Negative) 03/28/19 23:31 Mod (Negative) 03/28/19 23:31 Neg (Negative) 03/28/19 23:31 Neg (Negative) 03/28/19 23:31 < 2.0 mg/dL (<2.0) 03/28/19 23:31 Ur Leukocyte Esterase Neg (Negative) 03/28/19 23:31 1.0 /HPF (0.0-6.0) 03/28/19 23:31 4.0 /HPF (0.0-6.0) 03/28/19 23:31 U Epithel Cells (Auto) 1.0 /HPF (0-13.0) 03/28/19 23:31 Few /HPF 03/28/19 23:31 Active Medications - Current Medications Current Medications: Generic Name Dose Route Start Last Admin Trade Name Freq PRN Reason Stop Dose Admin Acetaminophen 650 mg 03/29/19 02:13 Tylenol PO Q4H PRN Pain MILD(1-3)/Fever >100.5/WAGONER Albuterol/Ipratropium 1 ampul 03/31/19 20:00 04/01/19 13:00 Duoneb *Not For Prn Use* IH 1 ampul TIDRT SHANE Administration Enoxaparin Sodium 40 mg 03/29/19 10:00 04/01/19 09:20 Lovenox SUB-Q 40 mg QDAY@1000 SHANE Administration Sodium Chloride 1,000 mls @ 125 mls/hr 03/29/19 03:00 04/01/19 04:01 Nacl 0.9% 1000 Ml IV 125 mls/hr DIRECT SHANE Administration Metronidazole 500 mg in 100 mls @ 100 mls/hr 03/29/19 10:00 04/01/19 17:08 Flagyl 500 Mg/100 Ml IV 100 mls/hr Q8H SHANE Administration Protocol Levofloxacin/Dextrose 750 mg in 150 mls @ 100 mls/hr 03/30/19 02:00 04/01/19 03:57 Levaquin 750mg/150ml IV 100 mls/hr Q24H SHANE Administration Protocol Morphine Sulfate 2 mg 03/29/19 02:13 04/01/19 16:33 Morphine IV 2 mg Q4H PRN Administration Pain, Moderate (4-6) Ondansetron HCl 4 mg 03/29/19 02:13 Zofran IV Q4H PRN Nausea And Vomiting Paroxetine HCl 10 mg 03/30/19 13:00 04/01/19 09:20 Paxil PO 10 mg QDAY SHANE Administration Sodium Chloride 10 ml 03/29/19 10:00 04/01/19 09:21 Sodium Chloride Flush Syringe 10 Ml IV 10 ml BID SHANE Administration Sodium Chloride 10 ml 03/29/19 02:13 Sodium Chloride Flush Syringe 10 Ml IV PRN PRN LINE FLUSH Temazepam 15 mg 03/29/19 23:20 03/31/19 22:03 Restoril PO 15 mg QHS PRN Administration Sleep
[2019-04-01] MEDS: ALUM-MAG HYDROX-SIMETH 200-200-20MG/5ML PO PRN (20:25)
[2019-04-01] MEDS: RESTORIL PO PRN (23:13)
[2019-04-02] MEDS: FLAGYL 500 MG/100 ML 500 MG/100 ML BAG IV SCH ×3 (01:07→18:51)
[2019-04-02] MEDS: LEVAQUIN 750MG/150ML 750 MG/150 ML BAG IV SCH (01:07)
[2019-04-02] MEDS: NACL 0.9% 1000 ML 1,000 ML IV SCH ×2 (01:11→09:57)
[2019-04-02 05:11] LABS: Hematocrit 45.5 % (35.5-45.6); Hemoglobin 15.9 gm/dl (11.8-15.2); Mean Corpuscular HGB Conc 35 % (32-34); Mean Corpuscular Volume 102 fl (84-94); Platelet Count 309 K/mm3 (140-440); Red Blood Count 4.46 M/mm3 (3.65-5.03); Red Cell Distribution Width 14.3 % (13.2-15.2)
[2019-04-02 07:29] LABS: Basophils % (Manual) 0 % (0.0-1.8); Eosinophils % (Manual) 0 % (0.0-4.3); Total Cells Counted 100
[2019-04-02 07:30] LABS: RBC Morphology Normal
[2019-04-02 07:32] LABS: Platelet Estimate Consistent w Auto
[2019-04-02] MEDS: DUONEB *Not for PRN Use IH SCH (07:53)
[2019-04-02] MEDS: MORPHINE IV PRN ×3 (08:10→22:23)
[2019-04-02] MEDS ORDERED: DUONEB *Not for PRN Use IH (09:40)
[2019-04-02] MEDS: LOVENOX SUB-Q SCH (09:50)
[2019-04-02] MEDS: PAXIL PO SCH (09:51)
--- NOTE | 2019-04-02 11:48 | Cat Scan Report ---
CT ABDOMEN AND PELVIS WITH CONTRAST HISTORY: Follow-up sigmoid diverticulitis with small abscesses, generalized abdominal pain the last 2 4 hours COMPARISON: 03/29/2019 TECHNIQUE: Axial CT images were obtained through the abdomen and pelvis after 100 cc of Omnipaque 300 intravenously. Sagittal and coronal reformatted images. All CT scans at this location are performed using CT dose reduction for ALARA by means of automated exposure control. FINDINGS: CT ABDOMEN: Lung Bases: The left hemidiaphragm is elevated or eventrated. There is discoid atelectasis in the lef t lower lobe. Trace bilateral pleural effusions are stable. Liver: No significant abnormality. Biliary: Noncalcified debris is identified in the gallbladder consistent with sludge. No evidence for inflammatory changes or biliary dilatation Spleen: No significant abnormality. Unenlarged. Pancreas: No significant abnormality. Adrenals: No significant abnormality. Kidneys: No significant abnormality. Lymphatics: No lymphadenopathy. Vasculature: No significant abnormality. Bowel/Peritoneum: Mild inflammatory changes in the distal descending colon/sigmoid region have improv ed slightly since the previous exam. There is a small abscess containing fluid and gas medial to the colon which is relatively stable in size measuring 2.7 x 2.1 cm. The tiny fluid collections containin g gas lateral to the colon have resolved. The remaining bowel loops are unremarkable. The appendix is not confidently identified. No evidence for free air. CT PELVIS: : No significant abnormality. Osseous Structures: Intact. Posterior fusion at L4-5 with degenerative changes is noted. Additional Findings: There is increased ascites in the pelvis and lateral to the liver since the prev ious exam. No gas is identified in these collections. IMPRESSION: Mild improvement in the sigmoid diverticulitis. A small abscess measuring up to 2.7 cm is relatively unchanged medial to the colon. Smaller abscesses lateral to the colon have resolved. There is however increased fluid in the abdomen since the previous exam. There is increased fluid in the pelvis and l ateral to the liver. Some of the fluid appears to be loculated. Follow-up is recommended. Sludge in the gallbladder. Elevated left hemidiaphragm with trace bilateral pleural effusions. Signer Name: David Trevino Jr, MD Signed: 04/02/2019 11:43 AM Workstation Name: [id number]
[2019-04-02] MEDS: SODIUM CHLORIDE FLUSH SYRINGE 10 ML IV SCH ×2 (11:55→22:23)
[2019-04-02] MEDS ORDERED: PROVENTIL IH PRN (12:05)
--- NOTE | 2019-04-02 12:18 | Progress Note ---
Assessment and Plan Pt status quo. states "a little better" Abd soft, decreased LLQ tenderness. rest of abd non-tender f/u CT of abd shows improvement of diverticular inflammation but new onset of fluid collections. non loculated, no gas noted in collections imp - clinically stable with slight improvement of sigmoid diverticulitis new onset of intra abd fluid collections infected fluid? abscesses? d/c full liq diet keep NPO except for ice chips and meds IR eval for aspiration, cults and drainage of new onset fluid collections ID eval Selected Entries 04/02/19 04/02/19 04/02/19 05:19 07:58 08:11 Temperature 98.5 F Pulse Rate 85 Pulse Rate [ 82 Bilateral Throughout] Blood Pressure 107/79 [Right] Laboratory Tests 04/02/19 04:34 WBC 11.1 H Hgb 15.9 H Hct 45.5 Objective Vital Signs - 12hr 04/02/19 04/02/19 04/02/19 05:19 07:50 07:58 Temperature 98.5 F Pulse Rate 81 Pulse Rate [ 80 82 Bilateral Throughout] Respiratory 18 Rate Respiratory 16 16 Rate [Bilateral Throughout] Blood Pressure 89/57 Blood Pressure [Right] O2 Sat by Pulse 95 95 Oximetry 04/02/19 08:11 Temperature Pulse Rate 85 Pulse Rate [ Bilateral Throughout] Respiratory Rate Respiratory Rate [Bilateral Throughout] Blood Pressure Blood Pressure 107/79 [Right] O2 Sat by Pulse Oximetry - Labs 04/02/19 04:34 03/30/19 06:02
--- NOTE | 2019-04-02 14:19 | Consultation ---
History of Present Illness - Reason for Consult Consult date: 04/02/19 abdominal fluid - History of Present Illness Patient with a history of diverticulitis. Initially presented stating he had bilateral lower extremity weakness. The patient is status post L4/5 fusion. He has had progressive CT scan showing the development of abdominal fluid. Additionally, the patient complains of bilateral lower extremity swelling left greater than right. Past History Past Medical History: other (diverticulitis, lwer extremity weakness) Past Surgical History: No surgical history Social history: Lives alone, full code. denies: smoking, prescription drug abuse, IV drug use Family history: no significant family history, other (No pulm issues reported) Medications and Allergies Allergies Allergy/AdvReac Type Severity Reaction Status Date / Time Penicillins Allergy Hives Verified 03/28/19 22:11 Home Medications Medication Instructions Recorded Confirmed Last Taken Type No Known Home Medications [No 03/29/19 03/29/19 Unknown History Reported Home Medications] Active Meds: Active Medications Acetaminophen (Tylenol) 650 mg PO Q4H PRN PRN Reason: Pain MILD(1-3)/Fever >100.5/WAGONER Al Hydrox/Mg Hydrox/Simethicone (Alum-Mag Hydrox-Simeth [id number]/5ml) 30 ml PO Q4H PRN PRN Reason: Indigestion Last Admin: 04/01/19 20:25 Dose: 30 ml Documented by: Albuterol (Proventil) 2.5 mg IH Q4HRT PRN PRN Reason: ATELECTASIS VS BRONCHOSPASM Enoxaparin Sodium (Lovenox) 40 mg SUB-Q QDAY@1000 SHANE Last Admin: 04/02/19 09:50 Dose: 40 mg Documented by: Metronidazole (Flagyl 500 Mg/100 Ml) 500 mg in 100 mls @ 100 mls/hr IV Q8H SHANE; Protocol Last Admin: 04/02/19 09:50 Dose: 100 mls/hr Documented by: Levofloxacin/Dextrose (Levaquin 750mg/150ml) 750 mg in 150 mls @ 100 mls/hr IV Q24H SHANE; Protocol Last Admin: 04/02/19 01:07 Dose: 100 mls/hr Documented by: Sodium Chloride (Nacl 0.9% 1000 Ml) 1,000 mls @ 42 mls/hr IV DIRECT SHANE Last Admin: 04/02/19 09:57 Dose: 42 mls/hr Documented by: Morphine Sulfate (Morphine) 2 mg IV Q4H PRN PRN Reason: Pain, Moderate (4-6) Last Admin: 04/02/19 08:10 Dose: 2 mg Documented by: Ondansetron HCl (Zofran) 4 mg IV Q4H PRN PRN Reason: Nausea And Vomiting Paroxetine HCl (Paxil) 10 mg PO QDAY REPLACED BY [facility] Last Admin: 04/02/19 09:51 Dose: 10 mg Documented by: Sodium Chloride (Sodium Chloride Flush Syringe 10 Ml) 10 ml IV BID REPLACED BY [facility] Last Admin: 04/02/19 11:55 Dose: 10 ml Documented by: Sodium Chloride (Sodium Chloride Flush Syringe 10 Ml) 10 ml IV PRN PRN PRN Reason: LINE FLUSH Temazepam (Restoril) 15 mg PO QHS PRN PRN Reason: Sleep Last Admin: 04/01/19 23:13 Dose: 15 mg Documented by: Review of Systems All systems: negative Exam - Constitutional Vitals: Temp Pulse Resp BP Pulse Ox 99.2 F 89 20 122/88 95 04/02/19 11:38 04/02/19 11:38 04/02/19 11:38 04/02/19 11:38 04/02/19 11:38 General appearance: Present: no acute distress - EENT Eyes: Present: EOM intact ENT: hearing intact - Neck Neck: Present: supple, normal ROM - Respiratory Respiratory effort: normal - Extremities Extremity abnormal: edema - Abdominal General gastrointestinal: Present: deferred Male genitourinary: Present: deferred - Rectal Rectal Exam: deferred - Psychiatric Psychiatric: appropriate mood/affect, cooperative Results - Labs CBC & Chem 7: 04/02/19 04:34 03/30/19 06:02 Labs: Abnormal lab results 04/02/19 Range/Units 04:34 WBC 11.1 H (4.5-11.0) K/mm3 Hgb 15.9 H (11.8-15.2) gm/dl MCV 102 H (84-94) fl MCH 36 H (28-32) pg MCHC 35 H (32-34) % Seg Neuts % (Manual) 94.0 H (40.0-70.0) % Lymphocytes % (Manual) 2.0 L (13.4-35.0) % Seg Neutrophils # Man 10.4 H (1.8-7.7) K/mm3 Lymphocytes # (Manual) 0.2 L (1.2-5.4) K/mm3 - Imaging and Cardiology CT scan - abdomen: report reviewed, image reviewed Assessment and Plan Patient initially presented with diverticulitis now appears to be retaining fluid in his abdomen bilateral lower extremities. To rule out DVT however, we'll order a venous ultrasound. Patient has had progression of intra-abdominal fluid. We'll schedule the patient for CT-guided aspiration and laboratory evaluation of the fluid.
[2019-04-02] MEDS: ALUM-MAG HYDROX-SIMETH 200-200-20MG/5ML PO PRN (14:27)
--- NOTE | 2019-04-02 14:59 | Consultation ---
History of Present Illness - Reason for Consult Consult date: 04/02/19 Fluid collection, Diverticulitis Requesting physician: SHAINA BIRCH - History of Present Illness This patient is a 48-year old male with a past medial history of hypertension, diabetes, depression that was sent from a psych facility on 03/28/19, for evaluation of fever. Patient states that he has been having fevers since Sunday with associated abdominal pain in the left lower quadrant. He described the pain as a brick sitting on his abdomen. He had a recent admission at the hospital and was diagnosed with a pinched nerve. On admission WBC 7.5, Creatinine 0.9, Lactic acid 1.6, Temperature 101.3, HR 90, BP 112/73. UA not consistent with UTI. Blood culture no growth to date. CXR no consolidation. Abdomen and pelvis CT show Acute distal descending colonic diverticulitis with a few very small pericolonic abscesses. The largest measures 2 cm. There is associated ascites and pericolonic inflammation.. Patient reports continued abdominal tenderness and swelling. Repeat CT Abdomen/Pelvis show progression of intra-abdominal fluid since admission. Patient also reports intermittent SOB, especially when ambulating to the bathroom. He reports a extensive history of tobacco and alcohol abuse, but states that he stopped both 3 weeks ago, Review of Systems: General: no fever,chills, nightsweats, unintentional weight change, + change in appetite Cutaneous: no rash, pruritus Head: no headaches or injury Eyes: no changes in vision, eye pain, double vision Ears: no ear pain, ear discharge, ringing or hearing loss Nose: no nose bleeding, stuffiness Mouth & throat: no bleeding gums, no horseness, no dental problems, or swollen glands Neck: no pain, node enlargement/lumps, tyroid enlargement or tenderness Respiratory: no cough, wheezing, sputum, + SOB Cardiovascular: + leg edema, no chest pain, cyanosis, MCNULTY, orthopnea Musculoskeletal: + bilateral thigh swelling, no decreased joint motion, bone or joint pain, muscle aches Gastrointestinal: + Ascites, no nausea, vomiting, hematemesis, diarrhea, constipation, melena, bright red blood in stools, fecal incontinence, jaundice Genitourinary/Reproductive: no frequent urination, no dysuria, hematuria, incontinence Neurogical: no seizures, no headaches, no weakness, no paresthesias, no loss of speech or vision; no memory loss, no vertigo, no tremors, no numbness Psychiatric: stable mood; no excessive anxiety, sadness or moodiness Past History Past Medical History: other (diverticulitis, lwer extremity weakness) Past Surgical History: No surgical history Social history: Lives alone, full code. denies: smoking, prescription drug abuse, IV drug use Family history: no significant family history, other (No pulm issues reported) Medications and Allergies Allergies Allergy/AdvReac Type Severity Reaction Status Date / Time Penicillins Allergy Hives Verified 03/28/19 22:11 Home Medications Medication Instructions Recorded Confirmed Last Taken Type No Known Home Medications [No 03/29/19 03/29/19 Unknown History Reported Home Medications] Active Meds: Active Medications Acetaminophen (Tylenol) 650 mg PO Q4H PRN PRN Reason: Pain MILD(1-3)/Fever >100.5/WAGONER Al Hydrox/Mg Hydrox/Simethicone (Alum-Mag Hydrox-Simeth [phone]/5ml) 30 ml PO Q4H PRN PRN Reason: Indigestion Last Admin: 04/02/19 14:27 Dose: 30 ml Documented by: Albuterol (Proventil) 2.5 mg IH Q4HRT PRN PRN Reason: ATELECTASIS VS BRONCHOSPASM Enoxaparin Sodium (Lovenox) 40 mg SUB-Q QDAY@1000 SHANE Last Admin: 04/02/19 09:50 Dose: 40 mg Documented by: Metronidazole (Flagyl 500 Mg/100 Ml) 500 mg in 100 mls @ 100 mls/hr IV Q8H SHANE; Protocol Last Admin: 04/02/19 09:50 Dose: 100 mls/hr Documented by: Levofloxacin/Dextrose (Levaquin 750mg/150ml) 750 mg in 150 mls @ 100 mls/hr IV Q24H SHANE; Protocol Last Admin: 04/02/19 01:07 Dose: 100 mls/hr Documented by: Sodium Chloride (Nacl 0.9% 1000 Ml) 1,000 mls @ 42 mls/hr IV DIRECT SHANE Last Admin: 04/02/19 09:57 Dose: 42 mls/hr Documented by: Morphine Sulfate (Morphine) 2 mg IV Q4H PRN PRN Reason: Pain, Moderate (4-6) Last Admin: 04/02/19 08:10 Dose: 2 mg Documented by: Ondansetron HCl (Zofran) 4 mg IV Q4H PRN PRN Reason: Nausea And Vomiting Paroxetine HCl (Paxil) 10 mg PO QDAY [facility] Last Admin: 04/02/19 09:51 Dose: 10 mg Documented by: Sodium Chloride (Sodium Chloride Flush Syringe 10 Ml) 10 ml IV BID [facility] Last Admin: 04/02/19 11:55 Dose: 10 ml Documented by: Sodium Chloride (Sodium Chloride Flush Syringe 10 Ml) 10 ml IV PRN PRN PRN Reason: LINE FLUSH Temazepam (Restoril) 15 mg PO QHS PRN PRN Reason: Sleep Last Admin: 04/01/19 23:13 Dose: 15 mg Documented by: Physical Examination - Physical Exam Narrative exam: Constitutional: Alert, cooperative. Mild distress observed Head, Ears, Nose: Normocephalic, atraumatic. External ears, nose normal Eyes: Conjunctivae/corneas clear. No icterus. No ptosis. Neck: Supple, no meningeal signs Oral: dentition poor. No thrush Cardiovascular: S1, S2 normal. Respiratory: Good air entry, clear to auscultation bilaterally diminished at the bases GI: + Ascites , Diffuse abdominal tenderness, Hypoactive bowel sounds Musculoskeletal: No pedal edema, no cyanosis. Bilateral thigh swelling.. Skin: No rash or abscess. Hem/Lymphatic: No palpable cervical or supraclavicular nodes. No lymphangitis Psych: Mood ok. Affect normal Neurological: Awake, alert, oriented. Calm - Constitutional Vitals: Vital Signs Temp Pulse Resp BP Pulse Ox 99.2 F 89 20 122/88 95 04/02/19 11:38 04/02/19 11:38 04/02/19 11:38 04/02/19 11:38 04/02/19 11:38 Temperature -Last 24 Hours Temperature 99.2 F Temperature 98.5 F Temperature 99.0 F Temperature 98.0 F Results - Labs CBC & Chem 7: 04/02/19 04:34 03/30/19 06:02 Labs: Abnormal lab results 04/02/19 Range/Units 04:34 WBC 11.1 H (4.5-11.0) K/mm3 Hgb 15.9 H (11.8-15.2) gm/dl MCV 102 H (84-94) fl MCH 36 H (28-32) pg MCHC 35 H (32-34) % Seg Neuts % (Manual) 94.0 H (40.0-70.0) % Lymphocytes % (Manual) 2.0 L (13.4-35.0) % Seg Neutrophils # Man 10.4 H (1.8-7.7) K/mm3 Lymphocytes # (Manual) 0.2 L (1.2-5.4) K/mm3 - Imaging and Cardiology Chest x-ray: report reviewed ( no consolidation) CT scan - abdomen: report reviewed (Acute distal descending colonic diverticulitis with a few very small pericolonic abscesses. The largest measures 2 cm. There is associated ascites and pericolonic inflammation.) CT scan - chest: report reviewed (No acute findings in the chest) Assessment and Plan Cultures: 03/28/19 Blood; no growth to date A/P: 48-year old male with a past medial history of hypertension, diabetes, depression that was sent from a psych facility on 03/28/19 for evaluation of fever.patient states that he has been having fever since Sunday with associated abdominal pain in the left lower quadrant. he described the pain as a brick sitting on his abdomen. He had a recent admission at the hospital and was diagnosed with a pinched nerve. Admitted with: 1. Fever: on admission 101.3. now resolved. Now Leukocytosis not on admission. Etiology most likely acute diverticulitis with fluid collections. Blood cultures show no growth to date. CXR negative. UA negative. Currently being treated with Levofloxacin and Flagyl. 2 Acute diverticulitis with abscess: CT findings consistent with descending colonic diverticulitis with very small abscess, measuring 2cm. Repeat CT shows mild improvement in the sigmoid diverticulitis but new onset of fluid collection. Some of the fluid appears to be loculated. Progression of intra- abdominal fluid since admission. CT- guided aspiration scheduledfor tomorrow. Please send CT guided aspiration fluid for cultures. Venous US ordered to [facility] for DVT.- Dr. Estrada following, 3. Type 2 DM : recommend tight glycemic control 3. Suicidal ideation/mood disorder/depression: psych following 4. Penicillin Allergy : remote. Will discontinue levofloxacin. Start Ceftriaxone. Recommendations -Discontinue Levofloxacin -Continue Flagyl 500 mg IV every 8 hours -Start Ceftriaxone 2 gms IV every 24 hours -follow-up blood cultures -Please send CT guided aspiration fluid for cultures -follow-up Venous US to evaluate for DVT [facility] M: [phone] O:[phone]
--- NOTE | 2019-04-02 15:04 | Progress Note ---
Assessment and Plan Assessment and plan: 48-year-old man with history of hypertension diabetes and mood disorder who presented from psych facility for fever Sepsis/acute diverticulitis with abscess Continue antibiotics, general surgery input appreciated, there is no evidence of perforation Sp US guided drainage of intra abdominal fluid collection on 04/04, planned for drain removal today -ADAT per GS Suicidal ideation/mood disorder/major depression mgt per psych, 1013 has been rescinded Hyponatremia; improved with IVF Hypertension and diabetes Optimize medications acute resp failure mgt per pulmonology likely splinting due to pain given nebs, and oxygen Tobacco abuse counseled on cessation for 11 minutes preventative health counseling, 17 mins spent DVT prophylaxis; Lovenox History Interval history: Review of systems Constitutional: no fever CVS: No chest pain, no orthopnea, no dyspnea on exertion, no pedal edema GI: Abdominal pain is improved Respiratory: no wheezing, no coughing, sob is improving Hospitalist Physical - Physical exam Narrative exam: General.: Appears well, no distress, nontoxic HEENT: Moist mucous membranes, extraocular muscles intact, no lymphadenopathy Neck: supple Cardiac: S1-S2 heard Lungs: clear to auscultation bilaterally Abdomen: soft , tender, distended, bowel sounds positive Extremities: no edema clubbing or cyanosis Skin: no rash or lesions Neurologic: no gross focal deficits Psych: calm, and cooperative - Constitutional Vitals: Temp Pulse Resp BP Pulse Ox 99.2 F 89 20 122/88 95 04/02/19 11:38 04/02/19 11:38 04/02/19 11:38 04/02/19 11:38 04/02/19 11:38 General appearance: Present: no acute distress Results - Labs CBC & Chem 7: 04/09/19 05:22 04/09/19 05:22 Labs: Laboratory Last Values WBC 11.1 K/mm3 (4.5-11.0) H 04/02/19 04:34 RBC 4.46 M/mm3 (3.65-5.03) 04/02/19 04:34 Hgb 15.9 gm/dl (11.8-15.2) H 04/02/19 04:34 Hct 45.5 % (35.5-45.6) 04/02/19 04:34 MCV 102 fl (84-94) H 04/02/19 04:34 MCH 36 pg (28-32) H 04/02/19 04:34 MCHC 35 % (32-34) H 04/02/19 04:34 RDW 14.3 % (13.2-15.2) 04/02/19 04:34 Plt Count 309 K/mm3 (140-440) 04/02/19 04:34 Lymph % (Auto) 4.2 % (13.4-35.0) L 03/31/19 06:03 [place] % (Auto) 5.7 % (0.0-7.3) 03/31/19 06:03 Eos % (Auto) 0.2 % (0.0-4.3) 03/31/19 06:03 Baso % (Auto) 0.4 % (0.0-1.8) 03/31/19 06:03 Lymph # 0.5 K/mm3 (1.2-5.4) L 03/31/19 06:03 [place] # 0.7 K/mm3 (0.0-0.8) 03/31/19 06:03 Eos # 0.0 K/mm3 (0.0-0.4) 03/31/19 06:03 Baso # 0.0 K/mm3 (0.0-0.1) 03/31/19 06:03 Add Manual Diff Complete 04/02/19 04:34 Total Counted 100 04/02/19 04:34 Seg Neutrophils % 89.5 % (40.0-70.0) H 03/31/19 06:03 Seg Neuts % (Manual) 94.0 % (40.0-70.0) H 04/02/19 04:34 0 % 04/02/19 04:34 2.0 % (13.4-35.0) L 04/02/19 04:34 Reactive Lymphs % (Man) 2.0 % 04/02/19 04:34 2.0 % (0.0-7.3) 04/02/19 04:34 0 % (0.0-4.3) 04/02/19 04:34 0 % (0.0-1.8) 04/02/19 04:34 0 % 04/02/19 04:34 0 % 04/02/19 04:34 0 % 04/02/19 04:34 0 % 04/02/19 04:34 Nucleated RBC % Not Reportable 04/02/19 04:34 Seg Neutrophils # 10.4 K/mm3 (1.8-7.7) H 03/31/19 06:03 Seg Neutrophils # Man 10.4 K/mm3 (1.8-7.7) H 04/02/19 04:34 Band Neutrophils # 0.0 K/mm3 04/02/19 04:34 0.2 K/mm3 (1.2-5.4) L 04/02/19 04:34 Abs React Lymphs (Man) 0.2 K/mm3 04/02/19 04:34 0.2 K/mm3 (0.0-0.8) 04/02/19 04:34 0.0 K/mm3 (0.0-0.4) 04/02/19 04:34 0.0 K/mm3 (0.0-0.1) 04/02/19 04:34 0.0 K/mm3 04/02/19 04:34 0.0 K/mm3 04/02/19 04:34 0.0 K/mm3 04/02/19 04:34 Blast Cells # 0.0 K/mm3 04/02/19 04:34 WBC Morphology Not Reportable 04/02/19 04:34 Hypersegmented Neuts Not Reportable 04/02/19 04:34 Hyposegmented Neuts Not Reportable 04/02/19 04:34 Hypogranular Neuts Not Reportable 04/02/19 04:34 Not Reportable 04/02/19 04:34 Not Reportable 04/02/19 04:34 Not Reportable 04/02/19 04:34 Not Reportable 04/02/19 04:34 Not Reportable 04/02/19 04:34 Not Reportable 04/02/19 04:34 Consistent w auto 04/02/19 04:34 Not Reportable 04/02/19 04:34 Plt Clumps, EDTA Not Reportable 04/02/19 04:34 Not Reportable 04/02/19 04:34 Not Reportable 04/02/19 04:34 Not Reportable 04/02/19 04:34 Plt Morphology Comment Not Reportable 04/02/19 04:34 RBC Morphology Normal 04/02/19 04:34 Dimorphic RBCs Not Reportable 04/02/19 04:34 Not Reportable 04/02/19 04:34 Not Reportable 04/02/19 04:34 Not Reportable 04/02/19 04:34 Not Reportable 04/02/19 04:34 Not Reportable 04/02/19 04:34 Not Reportable 04/02/19 04:34 Not Reportable 04/02/19 04:34 Not Reportable 04/02/19 04:34 Not Reportable 04/02/19 04:34 Not Reportable 04/02/19 04:34 Not Reportable 04/02/19 04:34 Not Reportable 04/02/19 04:34 Not Reportable 04/02/19 04:34 Not Reportable 04/02/19 04:34 Not Reportable 04/02/19 04:34 Not Reportable 04/02/19 04:34 Not Reportable 04/02/19 04:34 Not Reportable 04/02/19 04:34 Not Reportable 04/02/19 04:34 Acanthocytes (Spur) Not Reportable 04/02/19 04:34 Rouleaux Not Reportable 04/02/19 04:34 Not Reportable 04/02/19 04:34 Not Reportable 04/02/19 04:34 Not Reportable 04/02/19 04:34 Not Reportable 04/02/19 04:34 Hem Pathologist Commnt No 04/02/19 04:34 Sodium 135 mmol/L (137-145) L 03/30/19 06:02 Potassium 3.8 mmol/L (3.6-5.0) 03/30/19 06:02 Chloride 103.6 mmol/L (98-107) 03/30/19 06:02 Carbon Dioxide 22 mmol/L (22-30) 03/30/19 06:02 13 mmol/L 03/30/19 06:02 BUN 12 mg/dL (9-20) 03/30/19 06:02 0.8 mg/dL (0.8-1.5) 03/30/19 06:02 Estimated GFR > 60 ml/min 03/30/19 06:02 15 % 03/30/19 06:02 Glucose 119 mg/dL (75-100) H 03/30/19 06:02 Lactic Acid 1.60 mmol/L (0.7-2.0) 03/28/19 22:21 Calcium 8.0 mg/dL (8.4-10.2) L 03/30/19 06:02 1.30 mg/dL (0.1-1.2) H 03/28/19 22:21 AST 37 units/L (5-40) 03/28/19 22:21 ALT 96 units/L (7-56) H 03/28/19 22:21 46 units/L (35-129) 03/28/19 22:21 5.9 g/dL (6.3-8.2) L 03/28/19 22:21 2.7 g/dL (3.9-5) L 03/28/19 22:21 0.8 % 03/28/19 22:21 13 units/L (13-60) 03/29/19 01:06 TSH 1.110 mlU/mL (0.270-4.200) 03/28/19 22:21 Free T4 1.41 ng/dL (0.76-1.46) 03/28/19 22:21 Sandy (Yellow) 03/28/19 23:31 Slightly-cloudy (Clear) 03/28/19 23:31 6.0 (5.0-7.0) 03/28/19 23:31 Ur Specific [place] 1.016 (1.003-1.030) 03/28/19 23:31 30 mg/dl mg/dL (Negative) 03/28/19 23:31 Neg mg/dL (Negative) 03/28/19 23:31 Neg mg/dL (Negative) 03/28/19 23:31 Mod (Negative) 03/28/19 23:31 Neg (Negative) 03/28/19 23:31 Neg (Negative) 03/28/19 23:31 < 2.0 mg/dL (<2.0) 03/28/19 23:31 Ur Leukocyte Esterase Neg (Negative) 03/28/19 23:31 1.0 /HPF (0.0-6.0) 03/28/19 23:31 4.0 /HPF (0.0-6.0) 03/28/19 23:31 U Epithel Cells (Auto) 1.0 /HPF (0-13.0) 03/28/19 23:31 Few /HPF 03/28/19 23:31 Active Medications - Current Medications Current Medications: Generic Name Dose Route Start Last Admin Trade Name Freq PRN Reason Stop Dose Admin Acetaminophen 650 mg 03/29/19 02:13 Tylenol PO Q4H PRN Pain MILD(1-3)/Fever >100.5/WAGONER Al Hydrox/Mg Hydrox/Simethicone 30 ml 04/01/19 19:35 04/02/19 14:27 Alum-Mag Hydrox-Simeth 965-252-01nb/5ml PO 30 ml Q4H PRN Administration Indigestion Albuterol 2.5 mg 04/02/19 12:05 Proventil IH Q4HRT PRN ATELECTASIS VS BRONCHOSPASM Enoxaparin Sodium 40 mg 03/29/19 10:00 04/02/19 09:50 Lovenox SUB-Q 40 mg QDAY@1000 SHANE Administration Metronidazole 500 mg in 100 mls @ 100 mls/hr 03/29/19 10:00 04/02/19 09:50 Flagyl 500 Mg/100 Ml IV 100 mls/hr Q8H SHANE Administration Protocol Levofloxacin/Dextrose 750 mg in 150 mls @ 100 mls/hr 03/30/19 02:00 04/02/19 01:07 Levaquin 750mg/150ml IV 100 mls/hr Q24H SHANE Administration Protocol Sodium Chloride 1,000 mls @ 42 mls/hr 04/01/19 20:00 04/02/19 09:57 Nacl 0.9% 1000 Ml IV 42 mls/hr DIRECT SHANE Administration Morphine Sulfate 2 mg 03/29/19 02:13 04/02/19 08:10 Morphine IV 2 mg Q4H PRN Administration Pain, Moderate (4-6) Ondansetron HCl 4 mg 03/29/19 02:13 Zofran IV Q4H PRN Nausea And Vomiting Paroxetine HCl 10 mg 03/30/19 13:00 04/02/19 09:51 Paxil PO 10 mg QDAY SHANE Administration Sodium Chloride 10 ml 03/29/19 10:00 04/02/19 11:55 Sodium Chloride Flush Syringe 10 Ml IV 10 ml BID SHANE Administration Sodium Chloride 10 ml 03/29/19 02:13 Sodium Chloride Flush Syringe 10 Ml IV PRN PRN LINE FLUSH Temazepam 15 mg 03/29/19 23:20 04/01/19 23:13 Restoril PO 15 mg QHS PRN Administration Sleep
--- NOTE | 2019-04-02 15:27 | Progress Note ---
Subjective Principal diagnosis: diverticulitis Interval history: feels better, off o2 Objective Vital Signs - 12hr 04/02/19 04/02/19 04/02/19 05:19 07:50 07:58 Temperature 98.5 F Pulse Rate 81 Pulse Rate [ 80 82 Bilateral Throughout] Respiratory 18 Rate Respiratory 16 16 Rate [Bilateral Throughout] Blood Pressure 89/57 Blood Pressure [Right] O2 Sat by Pulse 95 95 Oximetry 04/02/19 04/02/19 08:11 11:38 Temperature 99.2 F Pulse Rate 85 89 Pulse Rate [ Bilateral Throughout] Respiratory 20 Rate Respiratory Rate [Bilateral Throughout] Blood Pressure 122/88 Blood Pressure 107/79 [Right] O2 Sat by Pulse 95 Oximetry Constitutional: no acute distress, alert Eyes: non-icteric ENT: oropharynx moist Neck: supple Effort: normal (shallow breathing) Ascultation: Bilateral: diminished breath sounds (bases, worst LLL) Cardiovascular: regular rate and rhythm (no mrg) Gastrointestinal: hypoactive bowel sounds, soft, other (distended) Integumentary: normal Extremities: no cyanosis, no edema, pink and warm Neurologic: normal mental status, non-focal exam, pupils equal and round Psychiatric: mood appropriate, affect normal CBC and BMP: 04/02/19 04:34 03/30/19 06:02 Abnormal lab findings: Abnormal Labs 03/28/19 03/28/19 03/30/19 22:21 22:21 06:02 WBC Hgb 15.5 H MCV 102 H 102 H MCH 36 H 36 H MCHC 35 H 35 H Lymph % (Auto) 11.5 L 5.7 L [place] % (Auto) 10.8 H Lymph # 0.9 L 0.6 L Seg Neutrophils % 76.8 H 87.0 H Seg Neuts % (Manual) Lymphocytes % (Manual) Seg Neutrophils # 9.6 H Seg Neutrophils # Man Lymphocytes # (Manual) Sodium 130 L Chloride 97.4 L BUN 8 L Glucose 118 H Calcium Total Bilirubin 1.30 H ALT 96 H Total Protein 5.9 L Albumin 2.7 L 03/30/19 03/31/19 04/02/19 06:02 06:03 04:34 WBC 11.6 H 11.1 H Hgb 15.9 H MCV 104 H 102 H MCH 35 H 36 H MCHC 35 H Lymph % (Auto) 4.2 L [place] % (Auto) Lymph # 0.5 L Seg Neutrophils % 89.5 H Seg Neuts % (Manual) 94.0 H Lymphocytes % (Manual) 2.0 L Seg Neutrophils # 10.4 H Seg Neutrophils # Man 10.4 H Lymphocytes # (Manual) 0.2 L Sodium 135 L Chloride BUN Glucose 119 H Calcium 8.0 L Total Bilirubin ALT Total Protein Albumin
--- NOTE | 2019-04-02 16:13 | Vascular Lab Report ---
DUPLEX DOPPLER LOWER EXTREMITY VEINS, BILATERAL INDICATION: Acute bilateral leg swelling, left greater than right. TECHNIQUE: Duplex doppler imaging was performed through the veins of both lower extremities using venous vikram hever and other maneuvers. COMPARISON: None available. FINDINGS: Right Common femoral vein: Negative. Right Superficial femoral vein: Negative. Right Popliteal vein: Negative. Right Calf veins: Negative. Left Common femoral vein: Negative. Left Superficial femoral vein: Negative. Left Popliteal vein: Negative. Left Calf veins: Negative. Additional findings: There is no evidence of a popliteal cyst or other abnormality. IMPRESSION: No sonographic evidence for DVT in either lower extremity. Signer Name: Bear Joshua MD Signed: 04/02/2019 4:08 PM Workstation Name: [id number]
[2019-04-02] MEDS: ROCEPHIN/NS 2 GM/100 ML 2 GM/100 ML BAG IV SCH (18:03)
[2019-04-02] MEDS: SODIUM CHLORIDE FLUSH SYRINGE 10 ML IV PRN (22:24)
[2019-04-02] MEDS: RESTORIL PO PRN (23:51)
[2019-04-03] MEDS: FLAGYL 500 MG/100 ML 500 MG/100 ML BAG IV SCH ×3 (02:22→17:22)
[2019-04-03] MEDS: MORPHINE IV PRN ×3 (06:42→20:36)
--- NOTE | 2019-04-03 08:54 | Progress Note ---
Assessment and Plan Assessment and plan: 48-year-old man with history of hypertension diabetes and mood disorder who presented from psych facility for fever Sepsis/acute diverticulitis with abscess Continue antibiotics, general surgery input appreciated, there is no evidence of perforation Sp US guided drainage of intra abdominal fluid collection on 04/04, planned for drain removal today -ADAT per GS Suicidal ideation/mood disorder/major depression mgt per psych, 1013 has been rescinded Hyponatremia; improved with IVF Hypertension and diabetes Optimize medications acute resp failure mgt per pulmonology likely splinting due to pain given nebs, and oxygen Tobacco abuse counseled on cessation for 11 minutes preventative health counseling, 17 mins spent DVT prophylaxis; Lovenox History Interval history: Review of systems Constitutional: no fever CVS: No chest pain, no orthopnea, no dyspnea on exertion, no pedal edema GI: Abdominal pain is improved Respiratory: no wheezing, no coughing, sob is improving Hospitalist Physical - Physical exam Narrative exam: General.: Appears well, no distress, nontoxic HEENT: Moist mucous membranes, extraocular muscles intact, no lymphadenopathy Neck: supple Cardiac: S1-S2 heard Lungs: clear to auscultation bilaterally Abdomen: soft , tender, distended, bowel sounds positive Extremities: no edema clubbing or cyanosis Skin: no rash or lesions Neurologic: no gross focal deficits Psych: calm, and cooperative - Constitutional Vitals: Temp Pulse Resp BP Pulse Ox 97.5 F L 85 18 137/93 92 04/03/19 06:21 04/03/19 06:41 04/03/19 06:41 04/03/19 06:41 04/03/19 06:41 General appearance: Present: no acute distress Results - Labs CBC & Chem 7: 04/09/19 05:22 04/09/19 05:22 Labs: Laboratory Last Values WBC 11.1 K/mm3 (4.5-11.0) H 04/02/19 04:34 RBC 4.46 M/mm3 (3.65-5.03) 04/02/19 04:34 Hgb 15.9 gm/dl (11.8-15.2) H 04/02/19 04:34 Hct 45.5 % (35.5-45.6) 04/02/19 04:34 MCV 102 fl (84-94) H 04/02/19 04:34 MCH 36 pg (28-32) H 04/02/19 04:34 MCHC 35 % (32-34) H 04/02/19 04:34 RDW 14.3 % (13.2-15.2) 04/02/19 04:34 Plt Count 309 K/mm3 (140-440) 04/02/19 04:34 Lymph % (Auto) 4.2 % (13.4-35.0) L 03/31/19 06:03 [place] % (Auto) 5.7 % (0.0-7.3) 03/31/19 06:03 Eos % (Auto) 0.2 % (0.0-4.3) 03/31/19 06:03 Baso % (Auto) 0.4 % (0.0-1.8) 03/31/19 06:03 Lymph # 0.5 K/mm3 (1.2-5.4) L 03/31/19 06:03 [place] # 0.7 K/mm3 (0.0-0.8) 03/31/19 06:03 Eos # 0.0 K/mm3 (0.0-0.4) 03/31/19 06:03 Baso # 0.0 K/mm3 (0.0-0.1) 03/31/19 06:03 Add Manual Diff Complete 04/02/19 04:34 Total Counted 100 04/02/19 04:34 Seg Neutrophils % 89.5 % (40.0-70.0) H 03/31/19 06:03 Seg Neuts % (Manual) 94.0 % (40.0-70.0) H 04/02/19 04:34 0 % 04/02/19 04:34 2.0 % (13.4-35.0) L 04/02/19 04:34 Reactive Lymphs % (Man) 2.0 % 04/02/19 04:34 2.0 % (0.0-7.3) 04/02/19 04:34 0 % (0.0-4.3) 04/02/19 04:34 0 % (0.0-1.8) 04/02/19 04:34 0 % 04/02/19 04:34 0 % 04/02/19 04:34 0 % 04/02/19 04:34 0 % 04/02/19 04:34 Nucleated RBC % Not Reportable 04/02/19 04:34 Seg Neutrophils # 10.4 K/mm3 (1.8-7.7) H 03/31/19 06:03 Seg Neutrophils # Man 10.4 K/mm3 (1.8-7.7) H 04/02/19 04:34 Band Neutrophils # 0.0 K/mm3 04/02/19 04:34 0.2 K/mm3 (1.2-5.4) L 04/02/19 04:34 Abs React Lymphs (Man) 0.2 K/mm3 04/02/19 04:34 0.2 K/mm3 (0.0-0.8) 04/02/19 04:34 0.0 K/mm3 (0.0-0.4) 04/02/19 04:34 0.0 K/mm3 (0.0-0.1) 04/02/19 04:34 0.0 K/mm3 04/02/19 04:34 0.0 K/mm3 04/02/19 04:34 0.0 K/mm3 04/02/19 04:34 Blast Cells # 0.0 K/mm3 04/02/19 04:34 WBC Morphology Not Reportable 04/02/19 04:34 Hypersegmented Neuts Not Reportable 04/02/19 04:34 Hyposegmented Neuts Not Reportable 04/02/19 04:34 Hypogranular Neuts Not Reportable 04/02/19 04:34 Not Reportable 04/02/19 04:34 Not Reportable 04/02/19 04:34 Not Reportable 04/02/19 04:34 Not Reportable 04/02/19 04:34 Not Reportable 04/02/19 04:34 Not Reportable 04/02/19 04:34 Consistent w auto 04/02/19 04:34 Not Reportable 04/02/19 04:34 Plt Clumps, EDTA Not Reportable 04/02/19 04:34 Not Reportable 04/02/19 04:34 Not Reportable 04/02/19 04:34 Not Reportable 04/02/19 04:34 Plt Morphology Comment Not Reportable 04/02/19 04:34 RBC Morphology Normal 04/02/19 04:34 Dimorphic RBCs Not Reportable 04/02/19 04:34 Not Reportable 04/02/19 04:34 Not Reportable 04/02/19 04:34 Not Reportable 04/02/19 04:34 Not Reportable 04/02/19 04:34 Not Reportable 04/02/19 04:34 Not Reportable 04/02/19 04:34 Not Reportable 04/02/19 04:34 Not Reportable 04/02/19 04:34 Not Reportable 04/02/19 04:34 Not Reportable 04/02/19 04:34 Not Reportable 04/02/19 04:34 Not Reportable 04/02/19 04:34 Not Reportable 04/02/19 04:34 Not Reportable 04/02/19 04:34 Not Reportable 04/02/19 04:34 Not Reportable 04/02/19 04:34 Not Reportable 04/02/19 04:34 Not Reportable 04/02/19 04:34 Not Reportable 04/02/19 04:34 Acanthocytes (Spur) Not Reportable 04/02/19 04:34 Rouleaux Not Reportable 04/02/19 04:34 Not Reportable 04/02/19 04:34 Not Reportable 04/02/19 04:34 Not Reportable 04/02/19 04:34 Not Reportable 04/02/19 04:34 Hem Pathologist Commnt No 04/02/19 04:34 Sodium 135 mmol/L (137-145) L 03/30/19 06:02 Potassium 3.8 mmol/L (3.6-5.0) 03/30/19 06:02 Chloride 103.6 mmol/L (98-107) 03/30/19 06:02 Carbon Dioxide 22 mmol/L (22-30) 03/30/19 06:02 13 mmol/L 03/30/19 06:02 BUN 12 mg/dL (9-20) 03/30/19 06:02 0.8 mg/dL (0.8-1.5) 03/30/19 06:02 Estimated GFR > 60 ml/min 03/30/19 06:02 15 % 03/30/19 06:02 Glucose 119 mg/dL (75-100) H 03/30/19 06:02 Lactic Acid 1.60 mmol/L (0.7-2.0) 03/28/19 22:21 Calcium 8.0 mg/dL (8.4-10.2) L 03/30/19 06:02 1.30 mg/dL (0.1-1.2) H 03/28/19 22:21 AST 37 units/L (5-40) 03/28/19 22:21 ALT 96 units/L (7-56) H 03/28/19 22:21 46 units/L (35-129) 03/28/19 22:21 5.9 g/dL (6.3-8.2) L 03/28/19 22:21 2.7 g/dL (3.9-5) L 03/28/19 22:21 0.8 % 03/28/19 22:21 13 units/L (13-60) 03/29/19 01:06 TSH 1.110 mlU/mL (0.270-4.200) 03/28/19 22:21 Free T4 1.41 ng/dL (0.76-1.46) 03/28/19 22:21 Sandy (Yellow) 03/28/19 23:31 Slightly-cloudy (Clear) 03/28/19 23:31 6.0 (5.0-7.0) 03/28/19 23:31 Ur Specific [place] 1.016 (1.003-1.030) 03/28/19 23:31 30 mg/dl mg/dL (Negative) 03/28/19 23:31 Neg mg/dL (Negative) 03/28/19 23:31 Neg mg/dL (Negative) 03/28/19 23:31 Mod (Negative) 03/28/19 23:31 Neg (Negative) 03/28/19 23:31 Neg (Negative) 03/28/19 23:31 < 2.0 mg/dL (<2.0) 03/28/19 23:31 Ur Leukocyte Esterase Neg (Negative) 03/28/19 23:31 1.0 /HPF (0.0-6.0) 03/28/19 23:31 4.0 /HPF (0.0-6.0) 03/28/19 23:31 U Epithel Cells (Auto) 1.0 /HPF (0-13.0) 03/28/19 23:31 Few /HPF 03/28/19 23:31 Active Medications - Current Medications Current Medications: Generic Name Dose Route Start Last Admin Trade Name Freq PRN Reason Stop Dose Admin Acetaminophen 650 mg 03/29/19 02:13 Tylenol PO Q4H PRN Pain MILD(1-3)/Fever >100.5/WAGONER Al Hydrox/Mg Hydrox/Simethicone 30 ml 04/01/19 19:35 04/02/19 14:27 Alum-Mag Hydrox-Simeth [id number]/5ml PO 30 ml Q4H PRN Administration Indigestion Albuterol 2.5 mg 04/02/19 12:05 Proventil IH Q4HRT PRN ATELECTASIS VS BRONCHOSPASM Enoxaparin Sodium 40 mg 03/29/19 10:00 04/02/19 09:50 Lovenox SUB-Q 40 mg QDAY@1000 SHANE Administration Metronidazole 500 mg in 100 mls @ 100 mls/hr 03/29/19 10:00 04/03/19 02:22 Flagyl 500 Mg/100 Ml IV 100 mls/hr Q8H SHANE Administration Protocol Sodium Chloride 1,000 mls @ 42 mls/hr 04/01/19 20:00 04/02/19 09:57 Nacl 0.9% 1000 Ml IV 42 mls/hr DIRECT SHANE Administration Ceftriaxone Sodium 2 gm in 100 mls @ 200 mls/hr 04/02/19 16:00 04/02/19 18:03 Rocephin/Ns 2 Gm/100 Ml IV 200 mls/hr Q24HR SHANE Administration Protocol Morphine Sulfate 2 mg 03/29/19 02:13 04/03/19 06:42 Morphine IV 2 mg Q4H PRN Administration Pain, Moderate (4-6) Ondansetron HCl 4 mg 03/29/19 02:13 Zofran IV Q4H PRN Nausea And Vomiting Paroxetine HCl 10 mg 03/30/19 13:00 04/02/19 09:51 Paxil PO 10 mg QDAY SHANE Administration Sodium Chloride 10 ml 03/29/19 10:00 04/02/19 22:23 Sodium Chloride Flush Syringe 10 Ml IV 10 ml BID SHANE Administration Sodium Chloride 10 ml 03/29/19 02:13 04/02/19 22:24 Sodium Chloride Flush Syringe 10 Ml IV 10 ml PRN PRN Administration LINE FLUSH Temazepam 15 mg 03/29/19 23:20 04/02/19 23:51 Restoril PO 15 mg QHS PRN Administration Sleep
--- NOTE | 2019-04-03 09:20 | Event Note ---
Date: 04/03/19 CT scanner is broken and requires repairs. CT scanner should be fixed by tomorrow morning per CT department. Plan will be to perform procedure tomorrow.
[2019-04-03] MEDS: PAXIL PO SCH (09:46)
[2019-04-03] MEDS: ROCEPHIN/NS 2 GM/100 ML 2 GM/100 ML BAG IV SCH (09:47)
[2019-04-03] MEDS: LOVENOX SUB-Q SCH (09:47)
--- NOTE | 2019-04-03 10:11 | Progress Note ---
Assessment and Plan Cultures: 03/28/19 Blood; no growth to date A/P: 48-year old male with a past medial history of hypertension, diabetes, depression that was sent from a psych facility on 03/28/19 for evaluation of fever.patient states that he has been having fever since Sunday with associated abdominal pain in the left lower quadrant. he described the pain as a brick sitting on his abdomen. He had a recent admission at the hospital and was diagnosed with a pinched nerve. Admitted with: 1. Fever: on admission 101.3. Now resolved. Now Leukocytosis not on admission. Etiology most likely acute diverticulitis with fluid collections. Blood cultures show no growth to date. CXR negative. UA negative. Currently being treated with Ceftriaxone and Flagyl. 2 Acute diverticulitis with abscess: CT findings consistent with descending colonic diverticulitis with very small abscess, measuring 2cm. Repeat CT shows mild improvement in the sigmoid diverticulitis but new onset of fluid collection. Some of the fluid appears to be loculated. Progression of intra- abdominal fluid since admission. CT- guided aspiration scheduled for Sunday. Please send CT guided aspiration fluid for cultures. Venous US shows no sonographic evidence for DVT in either lower extremity. 3. Type 2 DM : recommend tight glycemic control 3. Suicidal ideation/mood disorder/depression: psych following 4. Penicillin Allergy : Remote PCN allergy (30-40 years ago), has taken Amoxicillin in the past. Continue Ceftriaxone. Recommendations -Continue Flagyl 500 mg IV every 8 hours, D6 -Continue Ceftriaxone 2 gms IV every 24 hours, D2 -follow-up blood cultures -Please send CT guided aspiration fluid for cultures -cancel C-Diff, reports one stool today -CBC ordered for tomorrow [facility] M: [id number] O:[phone] Subjective Date of service: 04/03/19 Principal diagnosis: diverticulitis Interval history: Patient seen and examined. Reports increased abdominal swelling and SOB. No fevers. Objective - Exam Narrative Exam: Constitutional: Alert, cooperative. Mild distress observed Head, Ears, Nose: Normocephalic, atraumatic. External ears, nose normal Eyes: Conjunctivae/corneas clear. No icterus. No ptosis. Neck: Supple, no meningeal signs Oral: dentition poor. No thrush Cardiovascular: S1, S2 normal. Respiratory: Good air entry, clear to auscultation bilaterally diminished at the bases GI: + Ascites , Diffuse abdominal tenderness, Hypoactive bowel sounds Musculoskeletal: No pedal edema, no cyanosis. Bilateral thigh swelling.. Skin: No rash or abscess. Hem/Lymphatic: No palpable cervical or supraclavicular nodes. No lymphangitis Psych: Mood ok. Affect normal Neurological: Awake, alert, oriented. Calm - Constitutional Vitals: Vital Signs Temp Pulse Resp BP Pulse Ox 97.5 F L 85 18 137/93 92 04/03/19 06:21 04/03/19 06:41 04/03/19 06:41 04/03/19 06:41 04/03/19 06:41 Temperature -Last 24 Hours Temperature 97.5 F Temperature 98.4 F Temperature 98.5 F Temperature 99.2 F - Labs CBC & Chem 7: 04/02/19 04:34 03/30/19 06:02
[2019-04-03] MEDS: SODIUM CHLORIDE FLUSH SYRINGE 10 ML IV SCH ×2 (10:45→22:32)
--- NOTE | 2019-04-03 12:51 | Progress Note ---
Assessment and Plan Imp: 1. Diverticulitis/abscess 2. Sepsis 3. Elevated hemidiaphragm, cannot r/o paralysis 4. Chronic nicotine dependence, cigarettes Rec: 1. Duonebs TID 2. Incentive spirometry 3. SOB likely related to #'s 1 and 3 & should improve with resolution of abdominal issues; consider sniff test to eval. L diaphragm prior to d/c, although this could be done as an outpatient 4. DVT PPx 5. For IR drainage of abd fluid collections 6. Will monitor with you Plan of care reviewed w/ patient, he understands/agrees Subjective Date of service: 04/03/19 Principal diagnosis: diverticulitis Interval history: No events. SOB a bit better. Abd pain/distension similar. No new complaints. Active Medications Acetaminophen (Tylenol) 650 mg PO Q4H PRN PRN Reason: Pain MILD(1-3)/Fever >100.5/WAGONER Al Hydrox/Mg Hydrox/Simethicone (Alum-Mag Hydrox-Simeth [phone]/5ml) 30 ml PO Q4H PRN PRN Reason: Indigestion Last Admin: 04/02/19 14:27 Dose: 30 ml Documented by: Albuterol (Proventil) 2.5 mg IH Q4HRT PRN PRN Reason: ATELECTASIS VS BRONCHOSPASM Enoxaparin Sodium (Lovenox) 40 mg SUB-Q QDAY@1000 SHANE Last Admin: 04/03/19 09:47 Dose: 40 mg Documented by: Metronidazole (Flagyl 500 Mg/100 Ml) 500 mg in 100 mls @ 100 mls/hr IV Q8H SHANE; Protocol Last Admin: 04/03/19 10:45 Dose: 100 mls/hr Documented by: Sodium Chloride (Nacl 0.9% 1000 Ml) 1,000 mls @ 42 mls/hr IV DIRECT SHANE Last Admin: 04/02/19 09:57 Dose: 42 mls/hr Documented by: Ceftriaxone Sodium (Rocephin/Ns 2 Gm/100 Ml) 2 gm in 100 mls @ 200 mls/hr IV Q24HR SHANE; Protocol Last Admin: 04/03/19 09:47 Dose: 200 mls/hr Documented by: Morphine Sulfate (Morphine) 2 mg IV Q4H PRN PRN Reason: Pain, Moderate (4-6) Last Admin: 04/03/19 12:25 Dose: 2 mg Documented by: Ondansetron HCl (Zofran) 4 mg IV Q4H PRN PRN Reason: Nausea And Vomiting Paroxetine HCl (Paxil) 10 mg PO QDAY [facility] Last Admin: 04/03/19 09:46 Dose: 10 mg Documented by: Sodium Chloride (Sodium Chloride Flush Syringe 10 Ml) 10 ml IV BID SHANE Last Admin: 04/03/19 10:45 Dose: 10 ml Documented by: Sodium Chloride (Sodium Chloride Flush Syringe 10 Ml) 10 ml IV PRN PRN PRN Reason: LINE FLUSH Last Admin: 04/02/19 22:24 Dose: 10 ml Documented by: Temazepam (Restoril) 15 mg PO QHS PRN PRN Reason: Sleep Last Admin: 04/02/19 23:51 Dose: 15 mg Documented by: Objective Vital Signs - 12hr 04/03/19 04/03/19 04/03/19 06:21 06:41 11:43 Temperature 97.5 F L 97.7 F Pulse Rate 88 85 86 Respiratory 20 18 20 Rate Blood Pressure 145/100 137/93 119/77 O2 Sat by Pulse 93 92 96 Oximetry Constitutional: no acute distress, alert Eyes: non-icteric ENT: oropharynx moist Neck: supple Effort: normal (shallow breathing) Ascultation: Bilateral: diminished breath sounds (bases, worst LLL) Cardiovascular: regular rate and rhythm (no mrg) Gastrointestinal: hypoactive bowel sounds, soft, other (distended) Integumentary: normal Extremities: no cyanosis, no edema, pink and warm Neurologic: normal mental status, non-focal exam, pupils equal and round Psychiatric: mood appropriate, affect normal CBC and BMP: 04/02/19 04:34 03/30/19 06:02 Abnormal lab findings: Abnormal Labs 03/28/19 03/28/19 03/30/19 22:21 22:21 06:02 WBC Hgb 15.5 H MCV 102 H 102 H MCH 36 H 36 H MCHC 35 H 35 H Lymph % (Auto) 11.5 L 5.7 L [place] % (Auto) 10.8 H Lymph # 0.9 L 0.6 L Seg Neutrophils % 76.8 H 87.0 H Seg Neuts % (Manual) Lymphocytes % (Manual) Seg Neutrophils # 9.6 H Seg Neutrophils # Man Lymphocytes # (Manual) Sodium 130 L Chloride 97.4 L BUN 8 L Glucose 118 H Calcium Total Bilirubin 1.30 H ALT 96 H Total Protein 5.9 L Albumin 2.7 L 03/30/19 03/31/19 04/02/19 06:02 06:03 04:34 WBC 11.6 H 11.1 H Hgb 15.9 H MCV 104 H 102 H MCH 35 H 36 H MCHC 35 H Lymph % (Auto) 4.2 L [place] % (Auto) Lymph # 0.5 L Seg Neutrophils % 89.5 H Seg Neuts % (Manual) 94.0 H Lymphocytes % (Manual) 2.0 L Seg Neutrophils # 10.4 H Seg Neutrophils # Man 10.4 H Lymphocytes # (Manual) 0.2 L Sodium 135 L Chloride BUN Glucose 119 H Calcium 8.0 L Total Bilirubin ALT Total Protein Albumin Chest x-ray: report reviewed, image reviewed
--- NOTE | 2019-04-03 13:13 | Progress Note ---
Assessment and Plan Pt status quo. no compl Abd soft, minimal tenderness. no rebound or guarding IR eval appreciated Duplex neg for DVT surgically stable keep NPO CT down. CT guided drainage rescheduled for am Objective Vital Signs - 12hr 04/03/19 04/03/19 04/03/19 06:21 06:41 11:43 Temperature 97.5 F L 97.7 F Pulse Rate 88 85 86 Respiratory 20 18 20 Rate Blood Pressure 145/100 137/93 119/77 O2 Sat by Pulse 93 92 96 Oximetry - Labs 04/02/19 04:34 03/30/19 06:02
[2019-04-03] MEDS: NACL 0.9% 1000 ML 1,000 ML IV SCH (17:21)
[2019-04-03] MEDS: SODIUM CHLORIDE FLUSH SYRINGE 10 ML IV PRN (20:36)
[2019-04-03] MEDS: RESTORIL PO PRN (22:30)
[2019-04-04] MEDS: FLAGYL 500 MG/100 ML 500 MG/100 ML BAG IV SCH ×3 (01:14→17:56)
[2019-04-04 01:58] LABS: Hemoglobin 14.2 gm/dl (11.8-15.2); Mean Corpuscular HGB Conc 35 % (32-34); Mean Corpuscular Volume 104 fl (84-94); Platelet Count 275 K/mm3 (140-440); Red Blood Count 3.96 M/mm3 (3.65-5.03); Red Cell Distribution Width 14.1 % (13.2-15.2)
[2019-04-04] MEDS: MORPHINE IV PRN ×4 (04:47→22:03)
[2019-04-04] MEDS: SODIUM CHLORIDE FLUSH SYRINGE 10 ML IV PRN ×2 (04:48→11:41)
[2019-04-04 05:23] LABS: Basophils % (Manual) 0 % (0.0-1.8); Eosinophils % (Manual) 0 % (0.0-4.3); Platelet Estimate Consistent w Auto; RBC Morphology Normal; Total Cells Counted 100
--- NOTE | 2019-04-04 08:13 | Event Note ---
Date: 04/04/19 CT scanner is still broken. Apparently one part came in and then they realized they needed yet an additional part. Unable to perform a CT-guided drain placement versus aspiration today. The patient will be rescheduled for Sunday.
[2019-04-04] MEDS: ROCEPHIN/NS 2 GM/100 ML 2 GM/100 ML BAG IV SCH (09:37)
[2019-04-04] MEDS: LOVENOX SUB-Q SCH (09:38)
[2019-04-04] MEDS: PAXIL PO SCH (09:38)
--- NOTE | 2019-04-04 10:40 | Progress Note ---
Assessment and Plan Cultures: 03/28/19 Blood; no growth to date A/P: 48-year old male with a past medial history of hypertension, diabetes, depression that was sent from a psych facility on 03/28/19 for evaluation of fever.patient states that he has been having fever since Sunday with associated abdominal pain in the left lower quadrant. he described the pain as a brick sitting on his abdomen. He had a recent admission at the hospital and was diagnosed with a pinched nerve. Admitted with: 1. Fever: .Resolved. Etiology most likely acute diverticulitis with fluid collections. Blood cultures show no growth to date. CXR negative. UA negative. Currently being treated with Ceftriaxone and Flagyl. 2 Acute diverticulitis with abscess: CT findings consistent with descending colonic diverticulitis with very small abscess, measuring 2cm. Repeat CT shows mild improvement in the sigmoid diverticulitis but new onset of fluid collection. Some of the fluid appears to be loculated. Progression of intra-abdominal fluid since admission. s/p US guided aspiration of 60ml of fluid today. FALGUNI drain placed. Sample sent for cultures. Dr. Estrada following. 3. Type 2 DM : recommend tight glycemic control 3. Suicidal ideation/mood disorder/depression: psych following 4. Penicillin Allergy : Remote PCN allergy (30-40 years ago), has taken Amoxicillin in the past. Continue Ceftriaxone. Recommendations -Continue Flagyl 500 mg IV every 8 hours, D7 -Continue Ceftriaxone 2 gms IV every 24 hours, D3 -follow-up blood cultures -follow-up surgery cultures Dr. Aponte will be on air personality this weekend, , please call for questions. Keren Valdovinos NP [facility] M: [phone] O:[phone] Subjective Date of service: 04/04/19 Principal diagnosis: diverticulitis Interval history: Patient seen and examined. Reports increased abdominal swelling and SOB. No fevers. Objective - Exam Narrative Exam: Constitutional: Alert, cooperative. Mild distress observed Head, Ears, Nose: Normocephalic, atraumatic. External ears, nose normal Eyes: Conjunctivae/corneas clear. No icterus. No ptosis. Neck: Supple, no meningeal signs Oral: dentition poor. No thrush Cardiovascular: S1, S2 normal. Respiratory: Good air entry, clear to auscultation bilaterally, diminished at GI: + Ascites , Diffuse abdominal tenderness, Hypoactive bowel sounds Musculoskeletal: No pedal edema, no cyanosis. Bilateral thigh swelling.. Skin: No rash or abscess. Hem/Lymphatic: No palpable cervical or supraclavicular nodes. No lymphangitis Psych: Mood ok. Affect normal Neurological: Awake, alert, oriented. Calm - Constitutional Vitals: Vital Signs Temp Pulse Resp BP Pulse Ox 97.5 F L 74 18 110/69 96 04/04/19 06:14 04/04/19 06:14 04/04/19 06:14 04/04/19 06:14 04/04/19 06:14 Temperature -Last 24 Hours Temperature 97.5 F Temperature 97.8 F Temperature 98.0 F Temperature 97.7 F - Labs CBC & Chem 7: 04/04/19 01:38 03/30/19 06:02 Labs: Abnormal lab results 04/04/19 Range/Units 01:38 MCV 104 H (84-94) fl MCH 36 H (28-32) pg MCHC 35 H (32-34) % Seg Neuts % (Manual) 92.0 H (40.0-70.0) % Lymphocytes % (Manual) 4.0 L (13.4-35.0) % Seg Neutrophils # Man 8.3 H (1.8-7.7) K/mm3 Lymphocytes # (Manual) 0.4 L (1.2-5.4) K/mm3
[2019-04-04] MEDS: SODIUM CHLORIDE FLUSH SYRINGE 10 ML IV SCH ×2 (11:42→21:36)
--- NOTE | 2019-04-04 11:43 | Progress Note ---
Assessment and Plan Imp: 1. Diverticulitis/abscess 2. Sepsis 3. Elevated hemidiaphragm, cannot r/o paralysis 4. Chronic nicotine dependence, cigarettes Rec: 1. Duonebs TID 2. Incentive spirometry 3. SOB likely related to #'s 1 and 3 & should improve with resolution of abdominal issues; consider sniff test to eval. L diaphragm prior to d/c, although this could be done as an outpatient 4. DVT PPx 5. For IR drainage of abd fluid collections 6. Will follow peripherally over the weekend; please call with questions or concerns Plan of care reviewed w/ patient, he understands/agrees Subjective Date of service: 04/04/19 Principal diagnosis: diverticulitis Interval history: No events. SOB unchanged. On RA. Abd pain/distension similar. No new complaints. Active Medications Acetaminophen (Tylenol) 650 mg PO Q4H PRN PRN Reason: Pain MILD(1-3)/Fever >100.5/WAGONER Al Hydrox/Mg Hydrox/Simethicone (Alum-Mag Hydrox-Simeth [phone]/5ml) 30 ml PO Q4H PRN PRN Reason: Indigestion Last Admin: 04/02/19 14:27 Dose: 30 ml Documented by: Albuterol (Proventil) 2.5 mg IH Q4HRT PRN PRN Reason: ATELECTASIS VS BRONCHOSPASM Enoxaparin Sodium (Lovenox) 40 mg SUB-Q QDAY@1000 SHANE Last Admin: 04/04/19 09:38 Dose: 40 mg Documented by: Metronidazole (Flagyl 500 Mg/100 Ml) 500 mg in 100 mls @ 100 mls/hr IV Q8H SHANE; Protocol Last Admin: 04/04/19 11:38 Dose: 100 mls/hr Documented by: Sodium Chloride (Nacl 0.9% 1000 Ml) 1,000 mls @ 42 mls/hr IV DIRECT SHANE Last Admin: 04/03/19 17:21 Dose: 42 mls/hr Documented by: Ceftriaxone Sodium (Rocephin/Ns 2 Gm/100 Ml) 2 gm in 100 mls @ 200 mls/hr IV Q24HR SHANE; Protocol Last Admin: 04/04/19 09:37 Dose: 200 mls/hr Documented by: Morphine Sulfate (Morphine) 2 mg IV Q4H PRN PRN Reason: Pain, Moderate (4-6) Last Admin: 04/04/19 04:47 Dose: 2 mg Documented by: Ondansetron HCl (Zofran) 4 mg IV Q4H PRN PRN Reason: Nausea And Vomiting Paroxetine HCl (Paxil) 10 mg PO QDAY SHANE Last Admin: 04/04/19 09:38 Dose: 10 mg Documented by: Sodium Chloride (Sodium Chloride Flush Syringe 10 Ml) 10 ml IV BID SHANE Last Admin: 04/03/19 22:32 Dose: 10 ml Documented by: Sodium Chloride (Sodium Chloride Flush Syringe 10 Ml) 10 ml IV PRN PRN PRN Reason: LINE FLUSH Last Admin: 04/04/19 04:48 Dose: 10 ml Documented by: Temazepam (Restoril) 15 mg PO QHS PRN PRN Reason: Sleep Last Admin: 04/03/19 22:30 Dose: 15 mg Documented by: Objective Vital Signs - 12hr 04/04/19 04/04/19 01:12 06:14 Temperature 97.8 F 97.5 F L Pulse Rate 78 74 Respiratory 20 18 Rate Blood Pressure 116/81 110/69 O2 Sat by Pulse 93 96 Oximetry Constitutional: no acute distress, alert Eyes: non-icteric ENT: oropharynx moist Neck: supple Effort: normal (shallow breathing) Ascultation: Bilateral: diminished breath sounds (bases, worst LLL) Cardiovascular: regular rate and rhythm (no mrg) Gastrointestinal: hypoactive bowel sounds, soft, other (distended) Integumentary: normal Extremities: no cyanosis, no edema, pink and warm Neurologic: normal mental status, non-focal exam, pupils equal and round Psychiatric: mood appropriate, affect normal CBC and BMP: 04/04/19 01:38 03/30/19 06:02 Abnormal lab findings: Abnormal Labs 03/28/19 03/28/19 03/30/19 22:21 22:21 06:02 WBC Hgb 15.5 H MCV 102 H 102 H MCH 36 H 36 H MCHC 35 H 35 H Lymph % (Auto) 11.5 L 5.7 L [place] % (Auto) 10.8 H Lymph # 0.9 L 0.6 L Seg Neutrophils % 76.8 H 87.0 H Seg Neuts % (Manual) Lymphocytes % (Manual) Seg Neutrophils # 9.6 H Seg Neutrophils # Man Lymphocytes # (Manual) Sodium 130 L Chloride 97.4 L BUN 8 L Glucose 118 H Calcium Total Bilirubin 1.30 H ALT 96 H Total Protein 5.9 L Albumin 2.7 L 03/30/19 03/31/19 04/02/19 06:02 06:03 04:34 WBC 11.6 H 11.1 H Hgb 15.9 H MCV 104 H 102 H MCH 35 H 36 H MCHC 35 H Lymph % (Auto) 4.2 L [place] % (Auto) Lymph # 0.5 L Seg Neutrophils % 89.5 H Seg Neuts % (Manual) 94.0 H Lymphocytes % (Manual) 2.0 L Seg Neutrophils # 10.4 H Seg Neutrophils # Man 10.4 H Lymphocytes # (Manual) 0.2 L Sodium 135 L Chloride BUN Glucose 119 H Calcium 8.0 L Total Bilirubin ALT Total Protein Albumin 04/04/19 01:38 WBC Hgb MCV 104 H MCH 36 H MCHC 35 H Lymph % (Auto) [place] % (Auto) Lymph # Seg Neutrophils % Seg Neuts % (Manual) 92.0 H Lymphocytes % (Manual) 4.0 L Seg Neutrophils # Seg Neutrophils # Man 8.3 H Lymphocytes # (Manual) 0.4 L Sodium Chloride BUN Glucose Calcium Total Bilirubin ALT Total Protein Albumin Chest x-ray: report reviewed, image reviewed CT scan - chest: report reviewed, image reviewed
--- NOTE | 2019-04-04 13:00 | Event Note ---
Date: 04/04/19 Given the lack of availability of CT scanner, decision was made to attempt a procedure under ultrasound guidance. The patient was brought to the ultrasound suite and imaging obtained which demonstrated an appropriate window to the fluid collection in the left lower quadrant. Following informed consent, the patient's left lower quadrant was prepped and draped in the usual sterile fashion. 1% lidocaine was used for anesthesia. Under ultrasound guidance, an 8 [place] pigtail drainage catheter was advanced into the fluid collection using trocar technique. The catheter was deployed and the trocar removed. There is prompt return of clear yellow serous fluid. A total of 60 mL's of fluid was aspirated. A sample sent for laboratory analysis. The catheter was securely fastened at the skin using a stay fix device and placed to FALGUNI bulb drainage.
[2019-04-04] MEDS: ALUM-MAG HYDROX-SIMETH 200-200-20MG/5ML PO PRN (13:27)
--- NOTE | 2019-04-04 14:50 | Progress Note ---
Assessment and Plan Pt feeling well. US guided drainage today. drain in place. clear yellow fluid consistent with ascites. cults sent Abd soft, non tender wbc down to 9.0 stable cl liq diet Selected Entries 04/03/19 04/03/19 04/04/19 06:21 11:43 06:14 Temperature 97.5 F L Pulse Rate 86 Respiratory 20 18 Rate Blood Pressure 119/77 04/04/19 11:52 Temperature 97.7 F Pulse Rate 84 Respiratory Rate Blood Pressure 139/96 Laboratory Tests 04/04/19 01:38 WBC 9.0 Hgb 14.2 Hct 41.0 Objective Vital Signs - 12hr 04/04/19 04/04/19 06:14 11:52 Temperature 97.5 F L 97.7 F Pulse Rate 74 84 Respiratory 18 22 Rate Blood Pressure 110/69 139/96 O2 Sat by Pulse 96 94 Oximetry - Labs 04/04/19 01:38 03/30/19 06:02
--- NOTE | 2019-04-04 15:42 | Progress Note ---
Assessment and Plan Assessment and plan: 48-year-old man with history of hypertension diabetes and mood disorder who presented from psych facility for fever Sepsis/acute diverticulitis with abscess Continue antibiotics, general surgery input appreciated, there is no evidence of perforation Sp US guided drainage of intra abdominal fluid collection on 04/04 -ADAT per GS Suicidal ideation/mood disorder/major depression mgt per psych, 1013 has been rescinded Hyponatremia; improved with IVF Hypertension and diabetes Optimize medications acute resp failure mgt per pulmonology DVT prophylaxis; Lovenox History Interval history: Review of systems Constitutional: no fever CVS: No chest pain, no orthopnea, no dyspnea on exertion, no pedal edema GI: Abdominal pain is improved Respiratory: no wheezing, no coughing, sob is improving Hospitalist Physical - Physical exam Narrative exam: General.: Appears well, no distress, nontoxic HEENT: Moist mucous membranes, extraocular muscles intact, no lymphadenopathy Neck: supple Cardiac: S1-S2 heard Lungs: clear to auscultation bilaterally Abdomen: soft , tender, distended, bowel sounds positive Extremities: no edema clubbing or cyanosis Skin: no rash or lesions Neurologic: no gross focal deficits Psych: calm, and cooperative - Constitutional Vitals: Temp Pulse Resp BP Pulse Ox 97.7 F 84 22 139/96 94 04/04/19 11:52 04/04/19 11:52 04/04/19 11:52 04/04/19 11:52 04/04/19 11:52 General appearance: Present: no acute distress Results - Labs CBC & Chem 7: 04/04/19 01:38 03/30/19 06:02 Labs: Laboratory Last Values WBC 9.0 K/mm3 (4.5-11.0) 04/04/19 01:38 RBC 3.96 M/mm3 (3.65-5.03) 04/04/19 01:38 Hgb 14.2 gm/dl (11.8-15.2) 04/04/19 01:38 Hct 41.0 % (35.5-45.6) 04/04/19 01:38 MCV 104 fl (84-94) H 04/04/19 01:38 MCH 36 pg (28-32) H 04/04/19 01:38 MCHC 35 % (32-34) H 04/04/19 01:38 RDW 14.1 % (13.2-15.2) 04/04/19 01:38 Plt Count 275 K/mm3 (140-440) 04/04/19 01:38 Lymph % (Auto) 4.2 % (13.4-35.0) L 03/31/19 06:03 [place] % (Auto) 5.7 % (0.0-7.3) 03/31/19 06:03 Eos % (Auto) 0.2 % (0.0-4.3) 03/31/19 06:03 Baso % (Auto) 0.4 % (0.0-1.8) 03/31/19 06:03 Lymph # 0.5 K/mm3 (1.2-5.4) L 03/31/19 06:03 [place] # 0.7 K/mm3 (0.0-0.8) 03/31/19 06:03 Eos # 0.0 K/mm3 (0.0-0.4) 03/31/19 06:03 Baso # 0.0 K/mm3 (0.0-0.1) 03/31/19 06:03 Add Manual Diff Complete 04/04/19 01:38 Total Counted 100 04/04/19 01:38 Seg Neutrophils % 89.5 % (40.0-70.0) H 03/31/19 06:03 Seg Neuts % (Manual) 92.0 % (40.0-70.0) H 04/04/19 01:38 0 % 04/04/19 01:38 4.0 % (13.4-35.0) L 04/04/19 01:38 Reactive Lymphs % (Man) 1.0 % 04/04/19 01:38 3.0 % (0.0-7.3) 04/04/19 01:38 0 % (0.0-4.3) 04/04/19 01:38 0 % (0.0-1.8) 04/04/19 01:38 0 % 04/04/19 01:38 0 % 04/04/19 01:38 0 % 04/04/19 01:38 0 % 04/04/19 01:38 Nucleated RBC % Not Reportable 04/04/19 01:38 Seg Neutrophils # 10.4 K/mm3 (1.8-7.7) H 03/31/19 06:03 Seg Neutrophils # Man 8.3 K/mm3 (1.8-7.7) H 04/04/19 01:38 Band Neutrophils # 0.0 K/mm3 04/04/19 01:38 0.4 K/mm3 (1.2-5.4) L 04/04/19 01:38 Abs React Lymphs (Man) 0.1 K/mm3 04/04/19 01:38 0.3 K/mm3 (0.0-0.8) 04/04/19 01:38 0.0 K/mm3 (0.0-0.4) 04/04/19 01:38 0.0 K/mm3 (0.0-0.1) 04/04/19 01:38 0.0 K/mm3 04/04/19 01:38 0.0 K/mm3 04/04/19 01:38 0.0 K/mm3 04/04/19 01:38 Blast Cells # 0.0 K/mm3 04/04/19 01:38 WBC Morphology Not Reportable 04/04/19 01:38 Hypersegmented Neuts Not Reportable 04/04/19 01:38 Hyposegmented Neuts Not Reportable 04/04/19 01:38 Hypogranular Neuts Not Reportable 04/04/19 01:38 Not Reportable 04/04/19 01:38 Not Reportable 04/04/19 01:38 Not Reportable 04/04/19 01:38 Not Reportable 04/04/19 01:38 Not Reportable 04/04/19 01:38 Not Reportable 04/04/19 01:38 Consistent w auto 04/04/19 01:38 Not Reportable 04/04/19 01:38 Plt Clumps, EDTA Not Reportable 04/04/19 01:38 Not Reportable 04/04/19 01:38 Not Reportable 04/04/19 01:38 Not Reportable 04/04/19 01:38 Plt Morphology Comment Not Reportable 04/04/19 01:38 RBC Morphology Normal 04/04/19 01:38 Dimorphic RBCs Not Reportable 04/04/19 01:38 Not Reportable 04/04/19 01:38 Not Reportable 04/04/19 01:38 Not Reportable 04/04/19 01:38 Not Reportable 04/04/19 01:38 Not Reportable 04/04/19 01:38 Not Reportable 04/04/19 01:38 Not Reportable 04/04/19 01:38 Not Reportable 04/04/19 01:38 Not Reportable 04/04/19 01:38 Not Reportable 04/04/19 01:38 Not Reportable 04/04/19 01:38 Not Reportable 04/04/19 01:38 Not Reportable 04/04/19 01:38 Not Reportable 04/04/19 01:38 Not Reportable 04/04/19 01:38 Not Reportable 04/04/19 01:38 Not Reportable 04/04/19 01:38 Not Reportable 04/04/19 01:38 Not Reportable 04/04/19 01:38 Acanthocytes (Spur) Not Reportable 04/04/19 01:38 Rouleaux Not Reportable 04/04/19 01:38 Not Reportable 04/04/19 01:38 Not Reportable 04/04/19 01:38 Not Reportable 04/04/19 01:38 Not Reportable 04/04/19 01:38 Hem Pathologist Commnt No 04/04/19 01:38 Sodium 135 mmol/L (137-145) L 03/30/19 06:02 Potassium 3.8 mmol/L (3.6-5.0) 03/30/19 06:02 Chloride 103.6 mmol/L (98-107) 03/30/19 06:02 Carbon Dioxide 22 mmol/L (22-30) 03/30/19 06:02 13 mmol/L 03/30/19 06:02 BUN 12 mg/dL (9-20) 03/30/19 06:02 0.8 mg/dL (0.8-1.5) 03/30/19 06:02 Estimated GFR > 60 ml/min 03/30/19 06:02 15 % 03/30/19 06:02 Glucose 119 mg/dL (75-100) H 03/30/19 06:02 Lactic Acid 1.60 mmol/L (0.7-2.0) 03/28/19 22:21 Calcium 8.0 mg/dL (8.4-10.2) L 03/30/19 06:02 1.30 mg/dL (0.1-1.2) H 03/28/19 22:21 AST 37 units/L (5-40) 03/28/19 22:21 ALT 96 units/L (7-56) H 03/28/19 22:21 46 units/L (35-129) 03/28/19 22:21 5.9 g/dL (6.3-8.2) L 03/28/19 22:21 2.7 g/dL (3.9-5) L 03/28/19 22:21 0.8 % 03/28/19 22:21 13 units/L (13-60) 03/29/19 01:06 TSH 1.110 mlU/mL (0.270-4.200) 03/28/19 22:21 Free T4 1.41 ng/dL (0.76-1.46) 03/28/19 22:21 [place] (Yellow) 03/28/19 23:31 Slightly-cloudy (Clear) 03/28/19 23:31 6.0 (5.0-7.0) 03/28/19 23:31 Ur Specific [place] 1.016 (1.003-1.030) 03/28/19 23:31 30 mg/dl mg/dL (Negative) 03/28/19 23:31 Neg mg/dL (Negative) 03/28/19 23:31 Neg mg/dL (Negative) 03/28/19 23:31 Mod (Negative) 03/28/19 23:31 Neg (Negative) 03/28/19 23:31 Neg (Negative) 03/28/19 23:31 < 2.0 mg/dL (<2.0) 03/28/19 23:31 Ur Leukocyte Esterase Neg (Negative) 03/28/19 23:31 1.0 /HPF (0.0-6.0) 03/28/19 23:31 4.0 /HPF (0.0-6.0) 03/28/19 23:31 U Epithel Cells (Auto) 1.0 /HPF (0-13.0) 03/28/19 23:31 Few /HPF 03/28/19 23:31 Active Medications - Current Medications Current Medications: Generic Name Dose Route Start Last Admin Trade Name Freq PRN Reason Stop Dose Admin Acetaminophen 650 mg 03/29/19 02:13 Tylenol PO Q4H PRN Pain MILD(1-3)/Fever >100.5/WAGONER Al Hydrox/Mg Hydrox/Simethicone 30 ml 04/01/19 19:35 04/04/19 13:27 Alum-Mag Hydrox-Simeth 120-341-29pt/5ml PO 30 ml Q4H PRN Administration Indigestion Albuterol 2.5 mg 04/02/19 12:05 Proventil IH Q4HRT PRN ATELECTASIS VS BRONCHOSPASM Enoxaparin Sodium 40 mg 03/29/19 10:00 04/04/19 09:38 Lovenox SUB-Q 40 mg QDAY@1000 SHANE Administration Metronidazole 500 mg in 100 mls @ 100 mls/hr 03/29/19 10:00 04/04/19 11:38 Flagyl 500 Mg/100 Ml IV 100 mls/hr Q8H SHANE Administration Protocol Sodium Chloride 1,000 mls @ 42 mls/hr 04/01/19 20:00 04/03/19 17:21 Nacl 0.9% 1000 Ml IV 42 mls/hr DIRECT SHANE Administration Ceftriaxone Sodium 2 gm in 100 mls @ 200 mls/hr 04/02/19 16:00 04/04/19 09:37 Rocephin/Ns 2 Gm/100 Ml IV 200 mls/hr Q24HR SHANE Administration Protocol Morphine Sulfate 2 mg 03/29/19 02:13 04/04/19 13:23 Morphine IV 2 mg Q4H PRN Administration Pain, Moderate (4-6) Ondansetron HCl 4 mg 03/29/19 02:13 Zofran IV Q4H PRN Nausea And Vomiting Paroxetine HCl 10 mg 03/30/19 13:00 04/04/19 09:38 Paxil PO 10 mg QDAY SHANE Administration Sodium Chloride 10 ml 03/29/19 10:00 04/04/19 11:42 Sodium Chloride Flush Syringe 10 Ml IV 10 ml BID SHANE Administration Sodium Chloride 10 ml 03/29/19 02:13 04/04/19 04:48 Sodium Chloride Flush Syringe 10 Ml IV 10 ml PRN PRN Administration LINE FLUSH Temazepam 15 mg 03/29/19 23:20 04/03/19 22:30 Restoril PO 15 mg QHS PRN Administration Sleep
--- NOTE | 2019-04-04 16:48 | Ultrasound Report ---
Exam: Ultrasound-guided placement of drainage catheter in localized abdominal fluid collection Clinical indication: Patient with a history of diverticulitis and development of intra-abdominal fluid collections Date: 04/04/2019 Procedure: Following examination of the risks, benefits and alternative; written informed consent was obtained. The patient left the ultrasound suite. Focused ultrasound of the abdomen demonstrated a left lower quadrant fluid collection consistent with fluid collection demonstrated on CT scans of the abdomen. An appropriate access site was chosen. The overlying skin was prepped and draped in usual sterile fashion. 1% lidocaine was used for anesthesia. Under ultrasound guidance, an 8 Portuguese pigtail catheter was advanced into the fluid collection using Seldinger technique. The catheter was then deployed off the trocar into the fluid collection. Edematous state to document appropriate positioning. A total of 100 mL's of clear yellow serous fluid was aspirated. A sample sent for laboratory analysis. The catheter was securely fastened to the skin surface using a Stayfix device and placed to FALGUNI bulb drainage. The patient tolerated the procedure well. There were no immediate post procedure complications. Impression: Ultrasound guided placement of 8 Portuguese drainage catheter into localized abdominal fluid collection with 100 mL's of clear yellow serous fluid aspirated, samples sent for laboratory analysis.
[2019-04-04] MEDS: RESTORIL PO PRN (23:45)
[2019-04-04] MEDS: NACL 0.9% 1000 ML 1,000 ML IV SCH (23:45)
[2019-04-05] MEDS: FLAGYL 500 MG/100 ML 500 MG/100 ML BAG IV SCH ×3 (02:07→18:02)
[2019-04-05] MEDS: ROCEPHIN/NS 2 GM/100 ML 2 GM/100 ML BAG IV SCH (09:26)
[2019-04-05] MEDS: PAXIL PO SCH (09:26)
[2019-04-05] MEDS: LOVENOX SUB-Q SCH (09:26)
[2019-04-05] MEDS: MORPHINE IV PRN ×4 (09:26→22:41)
[2019-04-05] MEDS: SODIUM CHLORIDE FLUSH SYRINGE 10 ML IV SCH ×2 (09:40→21:41)
--- NOTE | 2019-04-05 09:47 | Progress Note ---
Assessment and Plan Pt feeling better but still slightly SOB. FALGUNI 40 cc royal cl liq diet Abd soft, non tender at present surgically stable needs CPT and nebulizer Rx's Needs PT to ambulate down halls (both have previously been ordered) advance to full liq as royal Resp w/u as per pulmonary Selected Entries 04/05/19 04/05/19 00:08 09:06 Temperature 98.4 F Respiratory 20 Rate O2 Sat by Pulse 95 Oximetry Blood Pressure 122/59 Objective Vital Signs - 12hr 04/04/19 04/05/19 04/05/19 21:52 00:08 09:06 Temperature 98.4 F Pulse Rate 69 Respiratory 20 Rate Blood Pressure 122/59 O2 Sat by Pulse 94 94 95 Oximetry - Labs 04/04/19 01:38 03/30/19 06:02
--- NOTE | 2019-04-05 16:16 | Progress Note ---
Assessment and Plan Assessment and plan: 48-year-old man with history of hypertension diabetes and mood disorder who presented from psych facility for fever Sepsis/acute diverticulitis with abscess Continue antibiotics, general surgery input appreciated, there is no evidence of perforation Sp US guided drainage of intra abdominal fluid collection on 04/04 -ADAT per GS Suicidal ideation/mood disorder/major depression mgt per psych, 1013 has been rescinded Hyponatremia; improved with IVF Hypertension and diabetes Optimize medications acute resp failure mgt per pulmonology likely splinting due to pain given nebs, and oxygen Tobacco abuse counseled on cessation for 11 minutes DVT prophylaxis; Lovenox History Interval history: Review of systems Constitutional: no fever CVS: No chest pain, no orthopnea, no dyspnea on exertion, no pedal edema GI: Abdominal pain is improved Respiratory: no wheezing, no coughing, sob is improving Hospitalist Physical - Physical exam Narrative exam: General.: Appears well, no distress, nontoxic HEENT: Moist mucous membranes, extraocular muscles intact, no lymphadenopathy Neck: supple Cardiac: S1-S2 heard Lungs: clear to auscultation bilaterally Abdomen: soft , tender, distended, bowel sounds positive Extremities: no edema clubbing or cyanosis Skin: no rash or lesions Neurologic: no gross focal deficits Psych: calm, and cooperative - Constitutional Vitals: Temp Pulse Resp BP Pulse Ox 98.4 F 88 20 122/59 98 04/05/19 00:08 04/05/19 09:55 04/05/19 09:55 04/05/19 00:08 04/05/19 09:44 General appearance: Present: no acute distress Results - Labs CBC & Chem 7: 04/04/19 01:38 03/30/19 06:02 Labs: Laboratory Last Values WBC 9.0 K/mm3 (4.5-11.0) 04/04/19 01:38 RBC 3.96 M/mm3 (3.65-5.03) 04/04/19 01:38 Hgb 14.2 gm/dl (11.8-15.2) 04/04/19 01:38 Hct 41.0 % (35.5-45.6) 04/04/19 01:38 MCV 104 fl (84-94) H 04/04/19 01:38 MCH 36 pg (28-32) H 04/04/19 01:38 MCHC 35 % (32-34) H 04/04/19 01:38 RDW 14.1 % (13.2-15.2) 04/04/19 01:38 Plt Count 275 K/mm3 (140-440) 04/04/19 01:38 Lymph % (Auto) 4.2 % (13.4-35.0) L 03/31/19 06:03 [place] % (Auto) 5.7 % (0.0-7.3) 03/31/19 06:03 Eos % (Auto) 0.2 % (0.0-4.3) 03/31/19 06:03 Baso % (Auto) 0.4 % (0.0-1.8) 03/31/19 06:03 Lymph # 0.5 K/mm3 (1.2-5.4) L 03/31/19 06:03 [place] # 0.7 K/mm3 (0.0-0.8) 03/31/19 06:03 Eos # 0.0 K/mm3 (0.0-0.4) 03/31/19 06:03 Baso # 0.0 K/mm3 (0.0-0.1) 03/31/19 06:03 Add Manual Diff Complete 04/04/19 01:38 Total Counted 100 04/04/19 01:38 Seg Neutrophils % 89.5 % (40.0-70.0) H 03/31/19 06:03 Seg Neuts % (Manual) 92.0 % (40.0-70.0) H 04/04/19 01:38 0 % 04/04/19 01:38 4.0 % (13.4-35.0) L 04/04/19 01:38 Reactive Lymphs % (Man) 1.0 % 04/04/19 01:38 3.0 % (0.0-7.3) 04/04/19 01:38 0 % (0.0-4.3) 04/04/19 01:38 0 % (0.0-1.8) 04/04/19 01:38 0 % 04/04/19 01:38 0 % 04/04/19 01:38 0 % 04/04/19 01:38 0 % 04/04/19 01:38 Nucleated RBC % Not Reportable 04/04/19 01:38 Seg Neutrophils # 10.4 K/mm3 (1.8-7.7) H 03/31/19 06:03 Seg Neutrophils # Man 8.3 K/mm3 (1.8-7.7) H 04/04/19 01:38 Band Neutrophils # 0.0 K/mm3 04/04/19 01:38 0.4 K/mm3 (1.2-5.4) L 04/04/19 01:38 Abs React Lymphs (Man) 0.1 K/mm3 04/04/19 01:38 0.3 K/mm3 (0.0-0.8) 04/04/19 01:38 0.0 K/mm3 (0.0-0.4) 04/04/19 01:38 0.0 K/mm3 (0.0-0.1) 04/04/19 01:38 0.0 K/mm3 04/04/19 01:38 0.0 K/mm3 04/04/19 01:38 0.0 K/mm3 04/04/19 01:38 Blast Cells # 0.0 K/mm3 04/04/19 01:38 WBC Morphology Not Reportable 04/04/19 01:38 Hypersegmented Neuts Not Reportable 04/04/19 01:38 Hyposegmented Neuts Not Reportable 04/04/19 01:38 Hypogranular Neuts Not Reportable 04/04/19 01:38 Not Reportable 04/04/19 01:38 Not Reportable 04/04/19 01:38 Not Reportable 04/04/19 01:38 Not Reportable 04/04/19 01:38 Not Reportable 04/04/19 01:38 Not Reportable 04/04/19 01:38 Consistent w auto 04/04/19 01:38 Not Reportable 04/04/19 01:38 Plt Clumps, EDTA Not Reportable 04/04/19 01:38 Not Reportable 04/04/19 01:38 Not Reportable 04/04/19 01:38 Not Reportable 04/04/19 01:38 Plt Morphology Comment Not Reportable 04/04/19 01:38 RBC Morphology Normal 04/04/19 01:38 Dimorphic RBCs Not Reportable 04/04/19 01:38 Not Reportable 04/04/19 01:38 Not Reportable 04/04/19 01:38 Not Reportable 04/04/19 01:38 Not Reportable 04/04/19 01:38 Not Reportable 04/04/19 01:38 Not Reportable 04/04/19 01:38 Not Reportable 04/04/19 01:38 Not Reportable 04/04/19 01:38 Not Reportable 04/04/19 01:38 Not Reportable 04/04/19 01:38 Not Reportable 04/04/19 01:38 Not Reportable 04/04/19 01:38 Not Reportable 04/04/19 01:38 Not Reportable 04/04/19 01:38 Not Reportable 04/04/19 01:38 Not Reportable 04/04/19 01:38 Not Reportable 04/04/19 01:38 Not Reportable 04/04/19 01:38 Not Reportable 04/04/19 01:38 Acanthocytes (Spur) Not Reportable 04/04/19 01:38 Rouleaux Not Reportable 04/04/19 01:38 Not Reportable 04/04/19 01:38 Not Reportable 04/04/19 01:38 Not Reportable 04/04/19 01:38 Not Reportable 04/04/19 01:38 Hem Pathologist Commnt No 04/04/19 01:38 Sodium 135 mmol/L (137-145) L 03/30/19 06:02 Potassium 3.8 mmol/L (3.6-5.0) 03/30/19 06:02 Chloride 103.6 mmol/L (98-107) 03/30/19 06:02 Carbon Dioxide 22 mmol/L (22-30) 03/30/19 06:02 13 mmol/L 03/30/19 06:02 BUN 12 mg/dL (9-20) 03/30/19 06:02 0.8 mg/dL (0.8-1.5) 03/30/19 06:02 Estimated GFR > 60 ml/min 03/30/19 06:02 15 % 03/30/19 06:02 Glucose 119 mg/dL (75-100) H 03/30/19 06:02 Lactic Acid 1.60 mmol/L (0.7-2.0) 03/28/19 22:21 Calcium 8.0 mg/dL (8.4-10.2) L 03/30/19 06:02 1.30 mg/dL (0.1-1.2) H 03/28/19 22:21 AST 37 units/L (5-40) 03/28/19 22:21 ALT 96 units/L (7-56) H 03/28/19 22:21 46 units/L (35-129) 03/28/19 22:21 5.9 g/dL (6.3-8.2) L 03/28/19 22:21 2.7 g/dL (3.9-5) L 03/28/19 22:21 0.8 % 03/28/19 22:21 13 units/L (13-60) 03/29/19 01:06 TSH 1.110 mlU/mL (0.270-4.200) 03/28/19 22:21 Free T4 1.41 ng/dL (0.76-1.46) 03/28/19 22:21 [place] (Yellow) 03/28/19 23:31 Slightly-cloudy (Clear) 03/28/19 23:31 6.0 (5.0-7.0) 03/28/19 23:31 Ur Specific [place] 1.016 (1.003-1.030) 03/28/19 23:31 30 mg/dl mg/dL (Negative) 03/28/19 23:31 Neg mg/dL (Negative) 03/28/19 23:31 Neg mg/dL (Negative) 03/28/19 23:31 Mod (Negative) 03/28/19 23:31 Neg (Negative) 03/28/19 23:31 Neg (Negative) 03/28/19 23:31 < 2.0 mg/dL (<2.0) 03/28/19 23:31 Ur Leukocyte Esterase Neg (Negative) 03/28/19 23:31 1.0 /HPF (0.0-6.0) 03/28/19 23:31 4.0 /HPF (0.0-6.0) 03/28/19 23:31 U Epithel Cells (Auto) 1.0 /HPF (0-13.0) 03/28/19 23:31 Few /HPF 03/28/19 23:31 Active Medications - Current Medications Current Medications: Generic Name Dose Route Start Last Admin Trade Name Freq PRN Reason Stop Dose Admin Acetaminophen 650 mg 03/29/19 02:13 Tylenol PO Q4H PRN Pain MILD(1-3)/Fever >100.5/WAGONER Al Hydrox/Mg Hydrox/Simethicone 30 ml 04/01/19 19:35 04/04/19 13:27 Alum-Mag Hydrox-Simeth 147-206-43zb/5ml PO 30 ml Q4H PRN Administration Indigestion Albuterol 2.5 mg 04/02/19 12:05 04/05/19 09:44 Proventil IH 2.5 mg Q4HRT PRN Administration ATELECTASIS VS BRONCHOSPASM Enoxaparin Sodium 40 mg 03/29/19 10:00 04/05/19 09:26 Lovenox SUB-Q 40 mg QDAY@1000 SHANE Administration Metronidazole 500 mg in 100 mls @ 100 mls/hr 03/29/19 10:00 04/05/19 10:00 Flagyl 500 Mg/100 Ml IV 100 mls/hr Q8H SHANE Administration Protocol Sodium Chloride 1,000 mls @ 42 mls/hr 04/01/19 20:00 04/04/19 23:45 Nacl 0.9% 1000 Ml IV 42 mls/hr DIRECT SHANE Administration Ceftriaxone Sodium 2 gm in 100 mls @ 200 mls/hr 04/02/19 16:00 04/05/19 09:26 Rocephin/Ns 2 Gm/100 Ml IV 200 mls/hr Q24HR SHANE Administration Protocol Morphine Sulfate 2 mg 03/29/19 02:13 04/05/19 14:00 Morphine IV 2 mg Q4H PRN Administration Pain, Moderate (4-6) Ondansetron HCl 4 mg 03/29/19 02:13 Zofran IV Q4H PRN Nausea And Vomiting Paroxetine HCl 10 mg 03/30/19 13:00 04/05/19 09:26 Paxil PO 10 mg QDAY SHANE Administration Sodium Chloride 10 ml 03/29/19 10:00 04/05/19 09:40 Sodium Chloride Flush Syringe 10 Ml IV 10 ml BID SHANE Administration Sodium Chloride 10 ml 03/29/19 02:13 04/04/19 04:48 Sodium Chloride Flush Syringe 10 Ml IV 10 ml PRN PRN Administration LINE FLUSH Temazepam 15 mg 03/29/19 23:20 04/04/19 23:45 Restoril PO 15 mg QHS PRN Administration Sleep Nutrition/Malnutrition Assess - Dietary Evaluation Nutrition/Malnutrition Findings: Nutrition Notes Start: 04/04/19 16:54 Freq: Status: Active Protocol: Document 04/04/19 16:55 RM (Rec: 04/04/19 16:55 RM [id number]) Nutrition Notes Need for Assessment generated from: LOS Initial or Follow up Brief Note Height 6 ft 5 in Weight 114.8 kg [place] Body Weight (kg) 94.54 BMI 29.9 Subjective/Other Information Screened for LOS. Recorded PO intake 75% X 4 meals. Nutrition Intervention Revisit per MD consult or patient Sign Off request:
[2019-04-05] MEDS: ALUM-MAG HYDROX-SIMETH 200-200-20MG/5ML PO PRN (18:54)
[2019-04-05] MEDS: NACL 0.9% 1000 ML 1,000 ML IV SCH (22:42)
[2019-04-05] MEDS: RESTORIL PO PRN (23:55)
[2019-04-06] MEDS: FLAGYL 500 MG/100 ML 500 MG/100 ML BAG IV SCH ×3 (01:11→17:38)
[2019-04-06] MEDS: MORPHINE IV PRN ×4 (07:47→23:09)
[2019-04-06] MEDS: PAXIL PO SCH (10:02)
[2019-04-06] MEDS: LOVENOX SUB-Q SCH (10:02)
[2019-04-06] MEDS: ROCEPHIN/NS 2 GM/100 ML 2 GM/100 ML BAG IV SCH (10:03)
[2019-04-06] MEDS: SODIUM CHLORIDE FLUSH SYRINGE 10 ML IV SCH ×2 (12:31→22:40)
--- NOTE | 2019-04-06 14:18 | Progress Note ---
Assessment and Plan Assessment and plan: 48-year-old man with history of hypertension diabetes and mood disorder who presented from psych facility for fever Sepsis/acute diverticulitis with abscess Continue antibiotics, general surgery input appreciated, there is no evidence of perforation Sp US guided drainage of intra abdominal fluid collection on 04/04 -ADAT per GS Suicidal ideation/mood disorder/major depression mgt per psych, 1013 has been rescinded Hyponatremia; improved with IVF Hypertension and diabetes Optimize medications acute resp failure mgt per pulmonology likely splinting due to pain given nebs, and oxygen Tobacco abuse counseled on cessation for 11 minutes DVT prophylaxis; Lovenox History Interval history: Review of systems Constitutional: no fever CVS: No chest pain, no orthopnea, no dyspnea on exertion, no pedal edema GI: Abdominal pain is improved Respiratory: no wheezing, no coughing, sob is improving Hospitalist Physical - Physical exam Narrative exam: General.: Appears well, no distress, nontoxic HEENT: Moist mucous membranes, extraocular muscles intact, no lymphadenopathy Neck: supple Cardiac: S1-S2 heard Lungs: clear to auscultation bilaterally Abdomen: soft , tender, distended, bowel sounds positive Extremities: no edema clubbing or cyanosis Skin: no rash or lesions Neurologic: no gross focal deficits Psych: calm, and cooperative - Constitutional Vitals: Temp Pulse Resp BP Pulse Ox 97.4 F L 78 22 122/85 95 04/06/19 11:57 04/06/19 11:57 04/06/19 11:57 04/06/19 11:57 04/06/19 11:57 General appearance: Present: no acute distress Results - Labs CBC & Chem 7: 04/04/19 01:38 03/30/19 06:02 Labs: Laboratory Last Values WBC 9.0 K/mm3 (4.5-11.0) 04/04/19 01:38 RBC 3.96 M/mm3 (3.65-5.03) 04/04/19 01:38 Hgb 14.2 gm/dl (11.8-15.2) 04/04/19 01:38 Hct 41.0 % (35.5-45.6) 04/04/19 01:38 MCV 104 fl (84-94) H 04/04/19 01:38 MCH 36 pg (28-32) H 04/04/19 01:38 MCHC 35 % (32-34) H 04/04/19 01:38 RDW 14.1 % (13.2-15.2) 04/04/19 01:38 Plt Count 275 K/mm3 (140-440) 04/04/19 01:38 Lymph % (Auto) 4.2 % (13.4-35.0) L 03/31/19 06:03 [place] % (Auto) 5.7 % (0.0-7.3) 03/31/19 06:03 Eos % (Auto) 0.2 % (0.0-4.3) 03/31/19 06:03 Baso % (Auto) 0.4 % (0.0-1.8) 03/31/19 06:03 Lymph # 0.5 K/mm3 (1.2-5.4) L 03/31/19 06:03 [place] # 0.7 K/mm3 (0.0-0.8) 03/31/19 06:03 Eos # 0.0 K/mm3 (0.0-0.4) 03/31/19 06:03 Baso # 0.0 K/mm3 (0.0-0.1) 03/31/19 06:03 Add Manual Diff Complete 04/04/19 01:38 Total Counted 100 04/04/19 01:38 Seg Neutrophils % 89.5 % (40.0-70.0) H 03/31/19 06:03 Seg Neuts % (Manual) 92.0 % (40.0-70.0) H 04/04/19 01:38 0 % 04/04/19 01:38 4.0 % (13.4-35.0) L 04/04/19 01:38 Reactive Lymphs % (Man) 1.0 % 04/04/19 01:38 3.0 % (0.0-7.3) 04/04/19 01:38 0 % (0.0-4.3) 04/04/19 01:38 0 % (0.0-1.8) 04/04/19 01:38 0 % 04/04/19 01:38 0 % 04/04/19 01:38 0 % 04/04/19 01:38 0 % 04/04/19 01:38 Nucleated RBC % Not Reportable 04/04/19 01:38 Seg Neutrophils # 10.4 K/mm3 (1.8-7.7) H 03/31/19 06:03 Seg Neutrophils # Man 8.3 K/mm3 (1.8-7.7) H 04/04/19 01:38 Band Neutrophils # 0.0 K/mm3 04/04/19 01:38 0.4 K/mm3 (1.2-5.4) L 04/04/19 01:38 Abs React Lymphs (Man) 0.1 K/mm3 04/04/19 01:38 0.3 K/mm3 (0.0-0.8) 04/04/19 01:38 0.0 K/mm3 (0.0-0.4) 04/04/19 01:38 0.0 K/mm3 (0.0-0.1) 04/04/19 01:38 0.0 K/mm3 04/04/19 01:38 0.0 K/mm3 04/04/19 01:38 0.0 K/mm3 04/04/19 01:38 Blast Cells # 0.0 K/mm3 04/04/19 01:38 WBC Morphology Not Reportable 04/04/19 01:38 Hypersegmented Neuts Not Reportable 04/04/19 01:38 Hyposegmented Neuts Not Reportable 04/04/19 01:38 Hypogranular Neuts Not Reportable 04/04/19 01:38 Not Reportable 04/04/19 01:38 Not Reportable 04/04/19 01:38 Not Reportable 04/04/19 01:38 Not Reportable 04/04/19 01:38 Not Reportable 04/04/19 01:38 Not Reportable 04/04/19 01:38 Consistent w auto 04/04/19 01:38 Not Reportable 04/04/19 01:38 Plt Clumps, EDTA Not Reportable 04/04/19 01:38 Not Reportable 04/04/19 01:38 Not Reportable 04/04/19 01:38 Not Reportable 04/04/19 01:38 Plt Morphology Comment Not Reportable 04/04/19 01:38 RBC Morphology Normal 04/04/19 01:38 Dimorphic RBCs Not Reportable 04/04/19 01:38 Not Reportable 04/04/19 01:38 Not Reportable 04/04/19 01:38 Not Reportable 04/04/19 01:38 Not Reportable 04/04/19 01:38 Not Reportable 04/04/19 01:38 Not Reportable 04/04/19 01:38 Not Reportable 04/04/19 01:38 Not Reportable 04/04/19 01:38 Not Reportable 04/04/19 01:38 Not Reportable 04/04/19 01:38 Not Reportable 04/04/19 01:38 Not Reportable 04/04/19 01:38 Not Reportable 04/04/19 01:38 Not Reportable 04/04/19 01:38 Not Reportable 04/04/19 01:38 Not Reportable 04/04/19 01:38 Not Reportable 04/04/19 01:38 Not Reportable 04/04/19 01:38 Not Reportable 04/04/19 01:38 Acanthocytes (Spur) Not Reportable 04/04/19 01:38 Rouleaux Not Reportable 04/04/19 01:38 Not Reportable 04/04/19 01:38 Not Reportable 04/04/19 01:38 Not Reportable 04/04/19 01:38 Not Reportable 04/04/19 01:38 Hem Pathologist Commnt No 04/04/19 01:38 Sodium 135 mmol/L (137-145) L 03/30/19 06:02 Potassium 3.8 mmol/L (3.6-5.0) 03/30/19 06:02 Chloride 103.6 mmol/L (98-107) 03/30/19 06:02 Carbon Dioxide 22 mmol/L (22-30) 03/30/19 06:02 13 mmol/L 03/30/19 06:02 BUN 12 mg/dL (9-20) 03/30/19 06:02 0.8 mg/dL (0.8-1.5) 03/30/19 06:02 Estimated GFR > 60 ml/min 03/30/19 06:02 15 % 03/30/19 06:02 Glucose 119 mg/dL (75-100) H 03/30/19 06:02 Lactic Acid 1.60 mmol/L (0.7-2.0) 03/28/19 22:21 Calcium 8.0 mg/dL (8.4-10.2) L 03/30/19 06:02 1.30 mg/dL (0.1-1.2) H 03/28/19 22:21 AST 37 units/L (5-40) 03/28/19 22:21 ALT 96 units/L (7-56) H 03/28/19 22:21 46 units/L (35-129) 03/28/19 22:21 5.9 g/dL (6.3-8.2) L 03/28/19 22:21 2.7 g/dL (3.9-5) L 03/28/19 22:21 0.8 % 03/28/19 22:21 13 units/L (13-60) 03/29/19 01:06 TSH 1.110 mlU/mL (0.270-4.200) 03/28/19 22:21 Free T4 1.41 ng/dL (0.76-1.46) 03/28/19 22:21 Sandy (Yellow) 03/28/19 23:31 Slightly-cloudy (Clear) 03/28/19 23:31 6.0 (5.0-7.0) 03/28/19 23:31 Ur Specific [place] 1.016 (1.003-1.030) 03/28/19 23:31 30 mg/dl mg/dL (Negative) 03/28/19 23:31 Neg mg/dL (Negative) 03/28/19 23:31 Neg mg/dL (Negative) 03/28/19 23:31 Mod (Negative) 03/28/19 23:31 Neg (Negative) 03/28/19 23:31 Neg (Negative) 03/28/19 23:31 < 2.0 mg/dL (<2.0) 03/28/19 23:31 Ur Leukocyte Esterase Neg (Negative) 03/28/19 23:31 1.0 /HPF (0.0-6.0) 03/28/19 23:31 4.0 /HPF (0.0-6.0) 03/28/19 23:31 U Epithel Cells (Auto) 1.0 /HPF (0-13.0) 03/28/19 23:31 Few /HPF 03/28/19 23:31 Active Medications - Current Medications Current Medications: Generic Name Dose Route Start Last Admin Trade Name Freq PRN Reason Stop Dose Admin Acetaminophen 650 mg 03/29/19 02:13 Tylenol PO Q4H PRN Pain MILD(1-3)/Fever >100.5/WAGONER Al Hydrox/Mg Hydrox/Simethicone 30 ml 04/01/19 19:35 04/05/19 18:54 Alum-Mag Hydrox-Simeth 465-347-09is/5ml PO 30 ml Q4H PRN Administration Indigestion Albuterol 2.5 mg 04/02/19 12:05 04/05/19 09:44 Proventil IH 2.5 mg Q4HRT PRN Administration ATELECTASIS VS BRONCHOSPASM Enoxaparin Sodium 40 mg 03/29/19 10:00 04/06/19 10:02 Lovenox SUB-Q 40 mg QDAY@1000 SHANE Administration Metronidazole 500 mg in 100 mls @ 100 mls/hr 03/29/19 10:00 04/06/19 10:02 Flagyl 500 Mg/100 Ml IV 100 mls/hr Q8H SHANE Administration Protocol Sodium Chloride 1,000 mls @ 42 mls/hr 04/01/19 20:00 04/05/19 22:42 Nacl 0.9% 1000 Ml IV 42 mls/hr DIRECT SHANE Administration Ceftriaxone Sodium 2 gm in 100 mls @ 200 mls/hr 04/02/19 16:00 04/06/19 10:03 Rocephin/Ns 2 Gm/100 Ml IV 200 mls/hr Q24HR SHANE Administration Protocol Morphine Sulfate 2 mg 03/29/19 02:13 04/06/19 12:18 Morphine IV 2 mg Q4H PRN Administration Pain, Moderate (4-6) Ondansetron HCl 4 mg 03/29/19 02:13 Zofran IV Q4H PRN Nausea And Vomiting Paroxetine HCl 10 mg 03/30/19 13:00 04/06/19 10:02 Paxil PO 10 mg QDAY SHANE Administration Sodium Chloride 10 ml 03/29/19 10:00 04/06/19 12:31 Sodium Chloride Flush Syringe 10 Ml IV 10 ml BID SHANE Administration Sodium Chloride 10 ml 03/29/19 02:13 04/04/19 04:48 Sodium Chloride Flush Syringe 10 Ml IV 10 ml PRN PRN Administration LINE FLUSH Temazepam 15 mg 03/29/19 23:20 04/05/19 23:55 Restoril PO 15 mg QHS PRN Administration Sleep Nutrition/Malnutrition Assess - Dietary Evaluation Nutrition/Malnutrition Findings: Nutrition Notes Start: 04/04/19 16:54 Freq: Status: Active Protocol: Document 04/04/19 16:55 RM (Rec: 04/04/19 16:55 RM [id number]) Nutrition Notes Need for Assessment generated from: LOS Initial or Follow up Brief Note Height 6 ft 5 in Weight 114.8 kg [place] Body Weight (kg) 94.54 BMI 29.9 Subjective/Other Information Screened for LOS. Recorded PO intake 75% X 4 meals. Nutrition Intervention Revisit per MD consult or patient Sign Off request:
[2019-04-07] MEDS: RESTORIL PO PRN ×2 (00:08→23:11)
[2019-04-07] MEDS: FLAGYL 500 MG/100 ML 500 MG/100 ML BAG IV SCH ×3 (01:41→18:24)
[2019-04-07] MEDS: NACL 0.9% 1000 ML 1,000 ML IV SCH (01:45)
[2019-04-07] MEDS: MORPHINE IV PRN ×4 (06:52→21:23)
[2019-04-07] MEDS: SODIUM CHLORIDE FLUSH SYRINGE 10 ML IV SCH ×2 (09:26→21:23)
--- NOTE | 2019-04-07 11:29 | Progress Note ---
Assessment and Plan Assessment and plan: 48-year-old man with history of hypertension diabetes and mood disorder who presented from psych facility for fever Sepsis/acute diverticulitis with abscess Continue antibiotics, general surgery input appreciated, there is no evidence of perforation Sp US guided drainage of intra abdominal fluid collection on 04/04, planned for drain removal today -ADAT per GS Suicidal ideation/mood disorder/major depression mgt per psych, 1013 has been rescinded Hyponatremia; improved with IVF Hypertension and diabetes Optimize medications acute resp failure mgt per pulmonology likely splinting due to pain given nebs, and oxygen Tobacco abuse counseled on cessation for 11 minutes preventative health counseling, 17 mins spent DVT prophylaxis; Lovenox History Interval history: Review of systems Constitutional: no fever CVS: No chest pain, no orthopnea, no dyspnea on exertion, no pedal edema GI: Abdominal pain is improved Respiratory: no wheezing, no coughing, sob is improving Hospitalist Physical - Physical exam Narrative exam: General.: Appears well, no distress, nontoxic HEENT: Moist mucous membranes, extraocular muscles intact, no lymphadenopathy Neck: supple Cardiac: S1-S2 heard Lungs: clear to auscultation bilaterally Abdomen: soft , tender, distended, bowel sounds positive Extremities: no edema clubbing or cyanosis Skin: no rash or lesions Neurologic: no gross focal deficits Psych: calm, and cooperative - Constitutional Vitals: Temp Pulse Resp BP Pulse Ox 97.4 F L 78 20 120/84 94 04/07/19 06:25 04/07/19 06:25 04/07/19 06:52 04/07/19 06:25 04/07/19 06:25 General appearance: Present: no acute distress Results - Labs CBC & Chem 7: 04/04/19 01:38 03/30/19 06:02 Labs: Laboratory Last Values WBC 9.0 K/mm3 (4.5-11.0) 04/04/19 01:38 RBC 3.96 M/mm3 (3.65-5.03) 04/04/19 01:38 Hgb 14.2 gm/dl (11.8-15.2) 04/04/19 01:38 Hct 41.0 % (35.5-45.6) 04/04/19 01:38 MCV 104 fl (84-94) H 04/04/19 01:38 MCH 36 pg (28-32) H 04/04/19 01:38 MCHC 35 % (32-34) H 04/04/19 01:38 RDW 14.1 % (13.2-15.2) 04/04/19 01:38 Plt Count 275 K/mm3 (140-440) 04/04/19 01:38 Lymph % (Auto) 4.2 % (13.4-35.0) L 03/31/19 06:03 [place] % (Auto) 5.7 % (0.0-7.3) 03/31/19 06:03 Eos % (Auto) 0.2 % (0.0-4.3) 03/31/19 06:03 Baso % (Auto) 0.4 % (0.0-1.8) 03/31/19 06:03 Lymph # 0.5 K/mm3 (1.2-5.4) L 03/31/19 06:03 [place]ady # 0.7 K/mm3 (0.0-0.8) 03/31/19 06:03 Eos # 0.0 K/mm3 (0.0-0.4) 03/31/19 06:03 Baso # 0.0 K/mm3 (0.0-0.1) 03/31/19 06:03 Add Manual Diff Complete 04/04/19 01:38 Total Counted 100 04/04/19 01:38 Seg Neutrophils % 89.5 % (40.0-70.0) H 03/31/19 06:03 Seg Neuts % (Manual) 92.0 % (40.0-70.0) H 04/04/19 01:38 0 % 04/04/19 01:38 4.0 % (13.4-35.0) L 04/04/19 01:38 Reactive Lymphs % (Man) 1.0 % 04/04/19 01:38 3.0 % (0.0-7.3) 04/04/19 01:38 0 % (0.0-4.3) 04/04/19 01:38 0 % (0.0-1.8) 04/04/19 01:38 0 % 04/04/19 01:38 0 % 04/04/19 01:38 0 % 04/04/19 01:38 0 % 04/04/19 01:38 Nucleated RBC % Not Reportable 04/04/19 01:38 Seg Neutrophils # 10.4 K/mm3 (1.8-7.7) H 03/31/19 06:03 Seg Neutrophils # Man 8.3 K/mm3 (1.8-7.7) H 04/04/19 01:38 Band Neutrophils # 0.0 K/mm3 04/04/19 01:38 0.4 K/mm3 (1.2-5.4) L 04/04/19 01:38 Abs React Lymphs (Man) 0.1 K/mm3 04/04/19 01:38 0.3 K/mm3 (0.0-0.8) 04/04/19 01:38 0.0 K/mm3 (0.0-0.4) 04/04/19 01:38 0.0 K/mm3 (0.0-0.1) 04/04/19 01:38 0.0 K/mm3 04/04/19 01:38 0.0 K/mm3 04/04/19 01:38 0.0 K/mm3 04/04/19 01:38 Blast Cells # 0.0 K/mm3 04/04/19 01:38 WBC Morphology Not Reportable 04/04/19 01:38 Hypersegmented Neuts Not Reportable 04/04/19 01:38 Hyposegmented Neuts Not Reportable 04/04/19 01:38 Hypogranular Neuts Not Reportable 04/04/19 01:38 Not Reportable 04/04/19 01:38 Not Reportable 04/04/19 01:38 Not Reportable 04/04/19 01:38 Not Reportable 04/04/19 01:38 Not Reportable 04/04/19 01:38 Not Reportable 04/04/19 01:38 Consistent w auto 04/04/19 01:38 Not Reportable 04/04/19 01:38 Plt Clumps, EDTA Not Reportable 04/04/19 01:38 Not Reportable 04/04/19 01:38 Not Reportable 04/04/19 01:38 Not Reportable 04/04/19 01:38 Plt Morphology Comment Not Reportable 04/04/19 01:38 RBC Morphology Normal 04/04/19 01:38 Dimorphic RBCs Not Reportable 04/04/19 01:38 Not Reportable 04/04/19 01:38 Not Reportable 04/04/19 01:38 Not Reportable 04/04/19 01:38 Not Reportable 04/04/19 01:38 Not Reportable 04/04/19 01:38 Not Reportable 04/04/19 01:38 Not Reportable 04/04/19 01:38 Not Reportable 04/04/19 01:38 Not Reportable 04/04/19 01:38 Not Reportable 04/04/19 01:38 Not Reportable 04/04/19 01:38 Not Reportable 04/04/19 01:38 Not Reportable 04/04/19 01:38 Not Reportable 04/04/19 01:38 Not Reportable 04/04/19 01:38 Not Reportable 04/04/19 01:38 Not Reportable 04/04/19 01:38 Not Reportable 04/04/19 01:38 Not Reportable 04/04/19 01:38 Acanthocytes (Spur) Not Reportable 04/04/19 01:38 Rouleaux Not Reportable 04/04/19 01:38 Not Reportable 04/04/19 01:38 Not Reportable 04/04/19 01:38 Not Reportable 04/04/19 01:38 Not Reportable 04/04/19 01:38 Hem Pathologist Commnt No 04/04/19 01:38 Sodium 135 mmol/L (137-145) L 03/30/19 06:02 Potassium 3.8 mmol/L (3.6-5.0) 03/30/19 06:02 Chloride 103.6 mmol/L (98-107) 03/30/19 06:02 Carbon Dioxide 22 mmol/L (22-30) 03/30/19 06:02 13 mmol/L 03/30/19 06:02 BUN 12 mg/dL (9-20) 03/30/19 06:02 0.8 mg/dL (0.8-1.5) 03/30/19 06:02 Estimated GFR > 60 ml/min 03/30/19 06:02 15 % 03/30/19 06:02 Glucose 119 mg/dL (75-100) H 03/30/19 06:02 Lactic Acid 1.60 mmol/L (0.7-2.0) 03/28/19 22:21 Calcium 8.0 mg/dL (8.4-10.2) L 03/30/19 06:02 1.30 mg/dL (0.1-1.2) H 03/28/19 22:21 AST 37 units/L (5-40) 03/28/19 22:21 ALT 96 units/L (7-56) H 03/28/19 22:21 46 units/L (35-129) 03/28/19 22:21 5.9 g/dL (6.3-8.2) L 03/28/19 22:21 2.7 g/dL (3.9-5) L 03/28/19 22:21 0.8 % 03/28/19 22:21 13 units/L (13-60) 03/29/19 01:06 TSH 1.110 mlU/mL (0.270-4.200) 03/28/19 22:21 Free T4 1.41 ng/dL (0.76-1.46) 03/28/19 22:21 Sandy (Yellow) 03/28/19 23:31 Slightly-cloudy (Clear) 03/28/19 23:31 6.0 (5.0-7.0) 03/28/19 23:31 Ur Specific [place] 1.016 (1.003-1.030) 03/28/19 23:31 30 mg/dl mg/dL (Negative) 03/28/19 23:31 Neg mg/dL (Negative) 03/28/19 23:31 Neg mg/dL (Negative) 03/28/19 23:31 Mod (Negative) 03/28/19 23:31 Neg (Negative) 03/28/19 23:31 Neg (Negative) 03/28/19 23:31 < 2.0 mg/dL (<2.0) 03/28/19 23:31 Ur Leukocyte Esterase Neg (Negative) 03/28/19 23:31 1.0 /HPF (0.0-6.0) 03/28/19 23:31 4.0 /HPF (0.0-6.0) 03/28/19 23:31 U Epithel Cells (Auto) 1.0 /HPF (0-13.0) 03/28/19 23:31 Few /HPF 03/28/19 23:31 Active Medications - Current Medications Current Medications: Generic Name Dose Route Start Last Admin Trade Name Freq PRN Reason Stop Dose Admin Acetaminophen 650 mg 03/29/19 02:13 Tylenol PO Q4H PRN Pain MILD(1-3)/Fever >100.5/WAGONER Al Hydrox/Mg Hydrox/Simethicone 30 ml 04/01/19 19:35 04/05/19 18:54 Alum-Mag Hydrox-Simeth 277-416-62sh/5ml PO 30 ml Q4H PRN Administration Indigestion Albuterol 2.5 mg 04/02/19 12:05 04/05/19 09:44 Proventil IH 2.5 mg Q4HRT PRN Administration ATELECTASIS VS BRONCHOSPASM Enoxaparin Sodium 40 mg 03/29/19 10:00 04/06/19 10:02 Lovenox SUB-Q 40 mg QDAY@1000 SHANE Administration Metronidazole 500 mg in 100 mls @ 100 mls/hr 03/29/19 10:00 04/07/19 09:25 Flagyl 500 Mg/100 Ml IV 100 mls/hr Q8H SHANE Administration Protocol Sodium Chloride 1,000 mls @ 42 mls/hr 04/01/19 20:00 04/07/19 01:45 Nacl 0.9% 1000 Ml IV 42 mls/hr DIRECT SHANE Administration Ceftriaxone Sodium 2 gm in 100 mls @ 200 mls/hr 04/02/19 16:00 04/06/19 10:03 Rocephin/Ns 2 Gm/100 Ml IV 200 mls/hr Q24HR SHANE Administration Protocol Morphine Sulfate 2 mg 03/29/19 02:13 04/07/19 06:52 Morphine IV 2 mg Q4H PRN Administration Pain, Moderate (4-6) Ondansetron HCl 4 mg 03/29/19 02:13 Zofran IV Q4H PRN Nausea And Vomiting Paroxetine HCl 10 mg 03/30/19 13:00 04/06/19 10:02 Paxil PO 10 mg QDAY SHANE Administration Sodium Chloride 10 ml 03/29/19 10:00 04/07/19 09:26 Sodium Chloride Flush Syringe 10 Ml IV 10 ml BID SHANE Administration Sodium Chloride 10 ml 03/29/19 02:13 04/04/19 04:48 Sodium Chloride Flush Syringe 10 Ml IV 10 ml PRN PRN Administration LINE FLUSH Temazepam 15 mg 03/29/19 23:20 04/07/19 00:08 Restoril PO 15 mg QHS PRN Administration Sleep Nutrition/Malnutrition Assess - Dietary Evaluation Nutrition/Malnutrition Findings: Nutrition Notes Start: 04/04/19 16:54 Freq: Status: Active Protocol: Document 04/04/19 16:55 RM (Rec: 04/04/19 16:55 RM [id number]) Nutrition Notes Need for Assessment generated from: LOS Initial or Follow up Brief Note Height 6 ft 5 in Weight 114.8 kg [place] Body Weight (kg) 94.54 BMI 29.9 Subjective/Other Information Screened for LOS. Recorded PO intake 75% X 4 meals. Nutrition Intervention Revisit per MD consult or patient Sign Off request:
[2019-04-07] MEDS: ROCEPHIN/NS 2 GM/100 ML 2 GM/100 ML BAG IV SCH (12:26)
--- NOTE | 2019-04-07 13:27 | Progress Note ---
Assessment and Plan Pt feeling well. royal full liq diet Abd soft. Was going to advance to solid high fiber diet but told by RN that pt was placed NPO as per IR for f/u CT and drainage? nothing currently available in notes as per IR Objective Vital Signs - 12hr 04/07/19 04/07/19 04/07/19 06:25 06:52 12:03 Temperature 97.4 F L 98.1 F Pulse Rate 78 88 Respiratory 16 20 22 Rate Blood Pressure 120/84 136/93 O2 Sat by Pulse 94 96 Oximetry - Labs 04/04/19 01:38 03/30/19 06:02
--- NOTE | 2019-04-07 14:06 | Progress Note ---
Assessment and Plan Cultures: 03/28/19 Blood; no growth A/P: 48-year old male with a past medial history of hypertension, diabetes, depression that was sent from a psych facility on 03/28/19 for evaluation of fever and abdominal pain admitted with: 1. Fever: Resolved. Etiology most likely acute diverticulitis with fluid collections. Blood cultures show no growth to date. CXR negative. UA negative. Currently being treated with Ceftriaxone and Flagyl. 2 Acute diverticulitis with abscess: improving. CT findings consistent with descending colonic diverticulitis with very small abscess, measuring 2cm. Repeat CT shows mild improvement in the sigmoid diverticulitis but new onset of fluid collection. Some of the fluid appears to be loculated. Progression of intra- abdominal fluid since admission. S/p US guided aspiration of 60ml of fluid on 04/04. FALGUNI drain placed, no cultures available. 3. Diabetes: recommend tight glycemic control 3. Suicidal ideation/mood disorder/depression: psych following 4. Penicillin Allergy: Remote PCN allergy (30-40 years ago), has taken Amoxicillin in the past. Continue Ceftriaxone. Recommendations Continue Flagyl 500 mg IV every 8 hours, D10 Continue Ceftriaxone 2 gms IV every 24 hours, D6 IR drain dar Almeida MD Infectious Diseases [employer] [facility] M [phone] O [phone] Subjective Date of service: 04/07/19 Principal diagnosis: diverticulitis Interval history: Patient reports feeling the same, still abdominal pain, no fever. Objective - Exam Narrative Exam: General: Alert in NAD Head, Ears, Nose: Normocephalic, atraumatic. External ears, nose normal Eyes: Conjunctivae/corneas clear. No icterus. No ptosis. Neck: Supple, no meningeal signs Oral: dentition poor. No thrush Cardiovascular: S1, S2 normal. Respiratory: Good air entry, clear to auscultation bilaterally diminished at the bases GI: diffuse tenderness +FALGUNI with minimal fluid Musculoskeletal: No pedal edema, no cyanosis. Bilateral thigh swelling.. Skin: No rash or abscess. Hem/Lymphatic: No palpable cervical or supraclavicular nodes. No lymphangitis Psych: Mood ok. Affect normal Neurological: Awake, alert, oriented. Calm - Constitutional Vitals: Vital Signs Temp Pulse Resp BP Pulse Ox 98.1 F 88 22 136/93 96 04/07/19 12:03 04/07/19 12:03 04/07/19 12:03 04/07/19 12:03 04/07/19 12:03 Temperature -Last 24 Hours Temperature 98.1 F Temperature 97.4 F Temperature 98.7 F Temperature 98.4 F - Labs CBC & Chem 7: 04/04/19 01:38 03/30/19 06:02
[2019-04-07] MEDS: LOVENOX SUB-Q SCH (16:32)
[2019-04-07] MEDS: PAXIL PO SCH (16:32)
--- NOTE | 2019-04-07 17:05 | Event Note ---
Date: 04/07/19 Removed drain at bedside. Minimal drainage today. Risk of contamination/secondary peritonitis given NGTD x 48 hrs outweighs benefit. If desired, repeat CT can be performed for further evaluation of ascites, but so far NGTD.
[2019-04-07] MEDS: ALUM-MAG HYDROX-SIMETH 200-200-20MG/5ML PO PRN (21:28)
[2019-04-08] MEDS: FLAGYL 500 MG/100 ML 500 MG/100 ML BAG IV SCH ×3 (01:23→18:21)
[2019-04-08] MEDS: NACL 0.9% 1000 ML 1,000 ML IV SCH (04:53)
[2019-04-08] MEDS: SODIUM CHLORIDE FLUSH SYRINGE 10 ML IV PRN (06:56)
[2019-04-08] MEDS: MORPHINE IV PRN ×4 (06:56→20:28)
[2019-04-08] MEDS: LOVENOX SUB-Q SCH (09:25)
[2019-04-08] MEDS: SODIUM CHLORIDE FLUSH SYRINGE 10 ML IV SCH ×2 (09:25→22:21)
[2019-04-08] MEDS: ROCEPHIN/NS 2 GM/100 ML 2 GM/100 ML BAG IV SCH (09:25)
[2019-04-08] MEDS: PAXIL PO SCH (09:25)
--- NOTE | 2019-04-08 10:59 | Progress Note ---
Assessment and Plan Cultures: 03/28/19 Blood; no growth A/P: 48-year old male with a past medial history of hypertension, diabetes, depression that was sent from a psych facility on 03/28/19 for evaluation of fever and abdominal pain admitted with: 1. Fever: Resolved. Etiology most likely acute diverticulitis with fluid collections. Blood cultures show no growth to date. CXR negative. UA negative. Currently being treated with Ceftriaxone and Flagyl. 2 Acute diverticulitis with abscess: improving. CT findings consistent with descending colonic diverticulitis with very small abscess, measuring 2cm. Repeat CT shows mild improvement in the sigmoid diverticulitis but new onset of fluid collection. Some of the fluid appears to be loculated. Progression of intra- abdominal fluid since admission. S/p US guided aspiration of 60ml of fluid on 04/04. FALGUNI drain placed, no cultures available. 3. Diabetes: recommend tight glycemic control 3. Suicidal ideation/mood disorder/depression: psych following 4. Penicillin Allergy: Remote PCN allergy (30-40 years ago), has taken Amoxicillin in the past. Continue Ceftriaxone. Recommendations Continue Flagyl 500 mg IV every 8 hours, D11 Continue Ceftriaxone 2 gms IV every 24 hours, D7 Surgery on board at discharge ok to do ceftin 500 mg po bid and flagyl 500 mg po tid total 14 days until 04/[address] Camacho, left msg will follow Silva Almeida MD Infectious Diseases Senior Director [employer] [facility] M [phone] O [phone] Subjective Date of service: 04/08/19 Principal diagnosis: diverticulitis Interval history: Patient reports feeling better, abdominal pain 4 of 10, no fever. Objective - Exam Narrative Exam: General: Alert in NAD Head, Ears, Nose: Normocephalic, atraumatic. External ears, nose normal Eyes: Conjunctivae/corneas clear. No icterus. No ptosis. Neck: Supple, no meningeal signs Oral: dentition poor. No thrush Cardiovascular: S1, S2 normal. Respiratory: Good air entry, clear to auscultation bilaterally diminished at the bases GI: diffuse mild tenderness Musculoskeletal: No pedal edema, no cyanosis. Bilateral thigh swelling.. Skin: No rash or abscess. Hem/Lymphatic: No palpable cervical or supraclavicular nodes. No lymphangitis Psych: Mood ok. Affect normal Neurological: Awake, alert, oriented. Calm - Constitutional Vitals: Vital Signs Temp Pulse Resp BP Pulse Ox 98.0 F 75 18 131/62 95 04/08/19 05:56 04/08/19 06:24 04/08/19 06:24 04/08/19 05:56 04/08/19 06:24 Temperature -Last 24 Hours Temperature 98.0 F Temperature 99.0 F Temperature 98.6 F Temperature 97.4 F Temperature 98.1 F - Labs CBC & Chem 7: 04/04/19 01:38 03/30/19 06:02
--- NOTE | 2019-04-08 13:18 | Progress Note ---
Assessment and Plan Assessment and plan: 48-year-old man with history of hypertension diabetes and mood disorder who presented from psych facility for fever Sepsis/acute diverticulitis with abscess Continue antibiotics, general surgery input appreciated, there is no evidence of perforation Sp US guided drainage of intra abdominal fluid collection on 04/04, drain removed Gen. surgery following Suicidal ideation/mood disorder/major depression Evaluated by psych,1013 rescinded Hyponatremia; improved with IVF Hypertension and diabetes Optimize medications --acute resp failure mgt per pulmonology likely splinting due to pain given nebs, and oxygen --Tobacco abuse counseled on cessation preventative health counseling, provided --DVT prophylaxis; Lovenox Possible discharge in 1-2 days if stable Conference and recommendations noted and appreciated Advance diet as tolerated Outpatient colonoscopy per GI History Interval history: Patient seen and examined, medical records reviewed No new Overnight events reported by the nursing Vital signs noted Hospitalist Physical - Constitutional Vitals: Temp Pulse Resp BP Pulse Ox 98.2 F 76 20 117/82 95 04/08/19 11:40 04/08/19 11:40 04/08/19 11:40 04/08/19 11:40 04/08/19 11:40 General appearance: Present: no acute distress, well-nourished, obese - EENT Eyes: Present: PERRL, EOM intact - Neck Neck: Present: supple, normal ROM - Respiratory Respiratory effort: normal Respiratory: bilateral: diminished, negative: rales, rhonchi, wheezing - Cardiovascular Rhythm: regular Heart Sounds: Present: S1 & S2 - Extremities Extremities: no ischemia, No edema - Abdominal General gastrointestinal: soft, non-tender, non-distended, normal bowel sounds - Integumentary Integumentary: Present: clear, warm - Psychiatric Psychiatric: appropriate mood/affect, cooperative - Neurologic Neurologic: CNII-XII intact, moves all extremities Results - Labs CBC & Chem 7: 04/04/19 01:38 03/30/19 06:02 Labs: Laboratory Last Values WBC 9.0 K/mm3 (4.5-11.0) 04/04/19 01:38 RBC 3.96 M/mm3 (3.65-5.03) 04/04/19 01:38 Hgb 14.2 gm/dl (11.8-15.2) 04/04/19 01:38 Hct 41.0 % (35.5-45.6) 04/04/19 01:38 MCV 104 fl (84-94) H 04/04/19 01:38 MCH 36 pg (28-32) H 04/04/19 01:38 MCHC 35 % (32-34) H 04/04/19 01:38 RDW 14.1 % (13.2-15.2) 04/04/19 01:38 Plt Count 275 K/mm3 (140-440) 04/04/19 01:38 Lymph % (Auto) 4.2 % (13.4-35.0) L 03/31/19 06:03 [place] % (Auto) 5.7 % (0.0-7.3) 03/31/19 06:03 Eos % (Auto) 0.2 % (0.0-4.3) 03/31/19 06:03 Baso % (Auto) 0.4 % (0.0-1.8) 03/31/19 06:03 Lymph # 0.5 K/mm3 (1.2-5.4) L 03/31/19 06:03 [place] # 0.7 K/mm3 (0.0-0.8) 03/31/19 06:03 Eos # 0.0 K/mm3 (0.0-0.4) 03/31/19 06:03 Baso # 0.0 K/mm3 (0.0-0.1) 03/31/19 06:03 Add Manual Diff Complete 04/04/19 01:38 Total Counted 100 04/04/19 01:38 Seg Neutrophils % 89.5 % (40.0-70.0) H 03/31/19 06:03 Seg Neuts % (Manual) 92.0 % (40.0-70.0) H 04/04/19 01:38 0 % 04/04/19 01:38 4.0 % (13.4-35.0) L 04/04/19 01:38 Reactive Lymphs % (Man) 1.0 % 04/04/19 01:38 3.0 % (0.0-7.3) 04/04/19 01:38 0 % (0.0-4.3) 04/04/19 01:38 0 % (0.0-1.8) 04/04/19 01:38 0 % 04/04/19 01:38 0 % 04/04/19 01:38 0 % 04/04/19 01:38 0 % 04/04/19 01:38 Nucleated RBC % Not Reportable 04/04/19 01:38 Seg Neutrophils # 10.4 K/mm3 (1.8-7.7) H 03/31/19 06:03 Seg Neutrophils # Man 8.3 K/mm3 (1.8-7.7) H 04/04/19 01:38 Band Neutrophils # 0.0 K/mm3 04/04/19 01:38 0.4 K/mm3 (1.2-5.4) L 04/04/19 01:38 Abs React Lymphs (Man) 0.1 K/mm3 04/04/19 01:38 0.3 K/mm3 (0.0-0.8) 04/04/19 01:38 0.0 K/mm3 (0.0-0.4) 04/04/19 01:38 0.0 K/mm3 (0.0-0.1) 04/04/19 01:38 0.0 K/mm3 04/04/19 01:38 0.0 K/mm3 04/04/19 01:38 0.0 K/mm3 04/04/19 01:38 Blast Cells # 0.0 K/mm3 04/04/19 01:38 WBC Morphology Not Reportable 04/04/19 01:38 Hypersegmented Neuts Not Reportable 04/04/19 01:38 Hyposegmented Neuts Not Reportable 04/04/19 01:38 Hypogranular Neuts Not Reportable 04/04/19 01:38 Not Reportable 04/04/19 01:38 Not Reportable 04/04/19 01:38 Not Reportable 04/04/19 01:38 Not Reportable 04/04/19 01:38 Not Reportable 04/04/19 01:38 Not Reportable 04/04/19 01:38 Consistent w auto 04/04/19 01:38 Not Reportable 04/04/19 01:38 Plt Clumps, EDTA Not Reportable 04/04/19 01:38 Not Reportable 04/04/19 01:38 Not Reportable 04/04/19 01:38 Not Reportable 04/04/19 01:38 Plt Morphology Comment Not Reportable 04/04/19 01:38 RBC Morphology Normal 04/04/19 01:38 Dimorphic RBCs Not Reportable 04/04/19 01:38 Not Reportable 04/04/19 01:38 Not Reportable 04/04/19 01:38 Not Reportable 04/04/19 01:38 Not Reportable 04/04/19 01:38 Not Reportable 04/04/19 01:38 Not Reportable 04/04/19 01:38 Not Reportable 04/04/19 01:38 Not Reportable 04/04/19 01:38 Not Reportable 04/04/19 01:38 Not Reportable 04/04/19 01:38 Not Reportable 04/04/19 01:38 Not Reportable 04/04/19 01:38 Not Reportable 04/04/19 01:38 Not Reportable 04/04/19 01:38 Not Reportable 04/04/19 01:38 Not Reportable 04/04/19 01:38 Not Reportable 04/04/19 01:38 Not Reportable 04/04/19 01:38 Not Reportable 04/04/19 01:38 Acanthocytes (Spur) Not Reportable 04/04/19 01:38 Rouleaux Not Reportable 04/04/19 01:38 Not Reportable 04/04/19 01:38 Not Reportable 04/04/19 01:38 Not Reportable 04/04/19 01:38 Not Reportable 04/04/19 01:38 Hem Pathologist Commnt No 04/04/19 01:38 Sodium 135 mmol/L (137-145) L 03/30/19 06:02 Potassium 3.8 mmol/L (3.6-5.0) 03/30/19 06:02 Chloride 103.6 mmol/L (98-107) 03/30/19 06:02 Carbon Dioxide 22 mmol/L (22-30) 03/30/19 06:02 13 mmol/L 03/30/19 06:02 BUN 12 mg/dL (9-20) 03/30/19 06:02 0.8 mg/dL (0.8-1.5) 03/30/19 06:02 Estimated GFR > 60 ml/min 03/30/19 06:02 15 % 03/30/19 06:02 Glucose 119 mg/dL (75-100) H 03/30/19 06:02 Lactic Acid 1.60 mmol/L (0.7-2.0) 03/28/19 22:21 Calcium 8.0 mg/dL (8.4-10.2) L 03/30/19 06:02 1.30 mg/dL (0.1-1.2) H 03/28/19 22:21 AST 37 units/L (5-40) 03/28/19 22:21 ALT 96 units/L (7-56) H 03/28/19 22:21 46 units/L (35-129) 03/28/19 22:21 5.9 g/dL (6.3-8.2) L 03/28/19 22:21 2.7 g/dL (3.9-5) L 03/28/19 22:21 0.8 % 03/28/19 22:21 13 units/L (13-60) 03/29/19 01:06 TSH 1.110 mlU/mL (0.270-4.200) 03/28/19 22:21 Free T4 1.41 ng/dL (0.76-1.46) 03/28/19 22:21 Sandy (Yellow) 03/28/19 23:31 Slightly-cloudy (Clear) 03/28/19 23:31 6.0 (5.0-7.0) 03/28/19 23:31 Ur Specific [place] 1.016 (1.003-1.030) 03/28/19 23:31 30 mg/dl mg/dL (Negative) 03/28/19 23:31 Neg mg/dL (Negative) 03/28/19 23:31 Neg mg/dL (Negative) 03/28/19 23:31 Mod (Negative) 03/28/19 23:31 Neg (Negative) 03/28/19 23:31 Neg (Negative) 03/28/19 23:31 < 2.0 mg/dL (<2.0) 03/28/19 23:31 Ur Leukocyte Esterase Neg (Negative) 03/28/19 23:31 1.0 /HPF (0.0-6.0) 03/28/19 23:31 4.0 /HPF (0.0-6.0) 03/28/19 23:31 U Epithel Cells (Auto) 1.0 /HPF (0-13.0) 03/28/19 23:31 Few /HPF 03/28/19 23:31 Active Medications - Current Medications Current Medications: Generic Name Dose Route Start Last Admin Trade Name Freq PRN Reason Stop Dose Admin Acetaminophen 650 mg 03/29/19 02:13 Tylenol PO Q4H PRN Pain MILD(1-3)/Fever >100.5/WAGONER Al Hydrox/Mg Hydrox/Simethicone 30 ml 04/01/19 19:35 04/07/19 21:28 Alum-Mag Hydrox-Simeth [id number]/5ml PO 30 ml Q4H PRN Administration Indigestion Albuterol 2.5 mg 04/02/19 12:05 04/05/19 09:44 Proventil IH 2.5 mg Q4HRT PRN Administration ATELECTASIS VS BRONCHOSPASM Enoxaparin Sodium 40 mg 03/29/19 10:00 04/08/19 09:25 Lovenox SUB-Q 40 mg QDAY@1000 SHANE Administration Metronidazole 500 mg in 100 mls @ 100 mls/hr 03/29/19 10:00 04/08/19 11:56 Flagyl 500 Mg/100 Ml IV 04/11/19 18:59 100 mls/hr Q8H SHANE Administration Protocol Sodium Chloride 1,000 mls @ 42 mls/hr 04/01/19 20:00 04/08/19 04:53 Nacl 0.9% 1000 Ml IV 42 mls/hr DIRECT SHANE Administration Ceftriaxone Sodium 2 gm in 100 mls @ 200 mls/hr 04/02/19 16:00 04/08/19 09:25 Rocephin/Ns 2 Gm/100 Ml IV 04/11/19 10:29 200 mls/hr Q24HR SHANE Administration Protocol Morphine Sulfate 2 mg 03/29/19 02:13 04/08/19 11:52 Morphine IV 2 mg Q4H PRN Administration Pain, Moderate (4-6) Ondansetron HCl 4 mg 03/29/19 02:13 Zofran IV Q4H PRN Nausea And Vomiting Paroxetine HCl 10 mg 03/30/19 13:00 04/08/19 09:25 Paxil PO 10 mg QDAY SHANE Administration Sodium Chloride 10 ml 03/29/19 10:00 04/08/19 09:25 Sodium Chloride Flush Syringe 10 Ml IV 10 ml BID SHANE Administration Sodium Chloride 10 ml 03/29/19 02:13 04/08/19 06:56 Sodium Chloride Flush Syringe 10 Ml IV 10 ml PRN PRN Administration LINE FLUSH Temazepam 15 mg 03/29/19 23:20 04/07/19 23:11 Restoril PO 15 mg QHS PRN Administration Sleep Nutrition/Malnutrition Assess - Dietary Evaluation Nutrition/Malnutrition Findings: Nutrition Notes Start: 04/04/19 16:54 Freq: Status: Active Protocol: Document 04/04/19 16:55 RM (Rec: 04/04/19 16:55 RM [id number]) Nutrition Notes Need for Assessment generated from: LOS Initial or Follow up Brief Note Height 6 ft 5 in Weight 114.8 kg Colbert Body Weight (kg) 94.54 BMI 29.9 Subjective/Other Information Screened for LOS. Recorded PO intake 75% X 4 meals. Nutrition Intervention Revisit per MD consult or patient Sign Off request:
--- NOTE | 2019-04-08 13:20 | Progress Note ---
Assessment and Plan Pt royal solid high fiber diet. Abd soft, non tender surgically stable consider d/c from surg perspective if remains stable needs GI eval for out pt colonoscopy in the next 1-2 months home antibiotics as per ID Selected Entries 04/07/19 04/07/19 04/08/19 06:52 12:03 11:40 Temperature 98.1 F 98.2 F Pulse Rate 88 76 Respiratory 20 20 Rate Blood Pressure 136/93 117/82 Objective Vital Signs - 12hr 04/08/19 04/08/19 04/08/19 05:45 05:56 06:24 Temperature 99.0 F 98.0 F Pulse Rate 74 88 75 Respiratory 18 18 18 Rate Blood Pressure 118/87 131/62 O2 Sat by Pulse 94 90 95 Oximetry 04/08/19 11:40 Temperature 98.2 F Pulse Rate 76 Respiratory 20 Rate Blood Pressure 117/82 O2 Sat by Pulse 95 Oximetry - Labs 04/04/19 01:38 03/30/19 06:02
--- NOTE | 2019-04-08 14:27 | Event Note ---
Date: 04/08/19 Surgery requested GI eval today for this patient for outpatient colonoscopy. GI has already evaluated patient this admission, including discussion with patient in regards to need for f/u in clinic upon discharge to schedule outpatient colonoscopy after acute process (diverticulitis) has resolved for further evaluation (r/o neoplasm). Please seen last progress noted on 03/31/19. Thanks, call if needed.
[2019-04-08] MEDS: ALUM-MAG HYDROX-SIMETH 200-200-20MG/5ML PO PRN (19:17)
[2019-04-08] MEDS: RESTORIL PO PRN (22:21)
[2019-04-09] MEDS: FLAGYL 500 MG/100 ML 500 MG/100 ML BAG IV SCH ×3 (02:36→18:40)
[2019-04-09] MEDS: MORPHINE IV PRN ×5 (03:38→20:07)
[2019-04-09 06:07] LABS: Basophils # (Auto) 0.1 K/mm3 (0.0-0.1); Basophils % (Auto) 0.8 % (0.0-1.8); Eosinophils # (Auto) 0.1 K/mm3 (0.0-0.4); Eosinophils % (Auto) 0.7 % (0.0-4.3); Hematocrit 41.3 % (35.5-45.6); Hemoglobin 14.2 gm/dl (11.8-15.2); Lymphocytes # (Auto) 0.9 K/mm3 (1.2-5.4); Lymphocytes % (Auto) 12.4 % (13.4-35.0); Mean Corpuscular HGB Conc 34 % (32-34); Mean Corpuscular Volume 104 fl (84-94); Monocytes # (Auto) 0.6 K/mm3 (0.0-0.8); Platelet Count 291 K/mm3 (140-440); Red Blood Count 3.99 M/mm3 (3.65-5.03); Red Cell Distribution Width 14.1 % (13.2-15.2)
[2019-04-09 06:24] LABS: BUN/Creatinine Ratio 6; Blood Urea Nitrogen 3 mg/dL (9-20); Calcium 7.5 mg/dL (8.4-10.2); Hemolysis Index 16
--- NOTE | 2019-04-09 09:16 | Discharge Summary ---
Providers - Providers Date of Admission: 03/29/19 04:15 Date of discharge: 04/09/19 Attending physician: REBA AC 03/29/19 01:18 Consult to Physician [CONS] Urgent Comment: DR LEONORA HICKS W/DR BIRCH @0120 Consulting Provider: SHAINA BIRCH Physician Instructions: Reason For Exam: diverticulitis with abscesses 03/29/19 05:12 Consult to Physician [CONS] Routine Comment: Consulting Provider: KEEGAN PALACIO Physician Instructions: Reason For Exam: diverticulitis/abscerss 03/29/19 09:22 psychiatry consult [Consult to Mental Health] [CONS] Routine Reason For Exam: pt from [facility] consult to:: Notified:: yes 03/30/19 13:09 Consult to Physician [CONS] Routine Comment: Consulting Provider: CHILO GARCIA Physician Instructions: Reason For Exam: SOB 04/02/19 12:11 Consult to Physician [CONS] Routine Comment: Consulting Provider: ELLYN TAYLOR Physician Instructions: Reason For Exam: diverticulitis, fluid collection 04/02/19 12:12 Consult to Physician [CONS] Routine Comment: Consulting Provider: ESTEFANÍA KING Physician Instructions: Reason For Exam: diverticulitis, fluid collection 04/04/19 14:40 Physical Therapy Evaluation and Treat [CONS] Routine Comment: Reason For Exam: LE weakness 04/08/19 13:20 Consult to Physician [CONS] Routine Comment: Consulting Provider: BENJA FUNG Physician Instructions: Reason For Exam: diverticulitis. outpt colonoscopy [facility] Reason for admission: Fever/Diverticulitis with abscess Condition: Good Pertinent studies: CT abd x2 CT chest CXR BilLE Doppler: neg for DVT Procedures: US guided drainage of intra abdominal fluid collection Hospital course: 48-year-old male patient with a history of hypertension, diabetes, depression was sent from a psych facility on 1013 status and suicidal watch was admitted for evaluation of fever. Workup was consistent with sepsis due to acute diverticulitis with abscess.Evaluated by Surgery,GI,ID,pulm and Interventional radiologist. Had US guided drainage of intra abdominal fluid collection,received antibiotics. Patientts symptoms significantly improved,vital signs stable, Psych evaluated and rescinded 1013 status and cleared for dc home. Sepsis/acute diverticulitis with abscess Continue antibiotics, general surgery input appreciated, there is no evidence of perforation Sp US guided drainage of intra abdominal fluid collection on 04/04, drain removed Gen. surgery following Suicidal ideation/mood disorder/major depression Evaluated by psych,1013 rescinded, cleared to DC home Advised to f/u private psych/[facility] in 3-5 days Hyponatremia; improved with IVF Hypertension and diabetes Optimize medications --acute resp failure mgt per pulmonology likely splinting due to pain given nebs, and oxygen --Tobacco abuse counseled on cessation preventative health counseling, provided --DVT prophylaxis; Lovenox Cleared by all the specialists for DC and f/u as out pt per schedule Advance diet as tolerated Outpatient colonoscopy per GI Disposition: DC- TO HOME OR SELFCARE Time spent for discharge: 32 min Core Measure Documentation - Palliative Care Palliative Care/ Comfort Measures: Not Applicable - Core Measures Any of the following diagnoses?: none Exam - Constitutional Vitals: Temp Pulse Resp BP Pulse Ox 98.4 F 79 18 127/88 94 04/09/19 05:10 04/09/19 05:10 04/09/19 08:15 04/09/19 05:10 04/09/19 05:10 General appearance: Present: no acute distress, well-nourished - EENT Eyes: Present: PERRL, EOM intact - Neck Neck: Present: supple, normal ROM - Respiratory Respiratory effort: normal Respiratory: bilateral: diminished, negative: rales, rhonchi, wheezing - Cardiovascular Rhythm: regular Heart Sounds: Present: S1 & S2 - Extremities Extremities: no ischemia, No edema - Abdominal General gastrointestinal: Present: soft, non-tender, non-distended, normal bowel sounds - Integumentary Integumentary: Present: clear, warm - Musculoskeletal Musculoskeletal: strength equal bilaterally - Psychiatric Psychiatric: appropriate mood/affect, cooperative - Neurologic Neurologic: CNII-XII intact, moves all extremities Plan Activity: no restrictions Diet: other (soft diet and advance as tolerated) Additional Instructions: Soft diet and advance as tolerated Follow up with: WOODY AGUILAR MD [Primary Care Provider] - 3-5 Days SHAINA BIRCH MD [Staff Physician] - 7 Days KEEGAN PALACIO MD [Staff Physician] - 7 Days ESTEFANÍA KING MD [Staff Physician] - 7 Days Prescriptions: Cefuroxime Axetil [Ceftin] 500 mg PO Q12H #6 ml metroNIDAZOLE [Flagyl] 500 mg PO Q8HR #9 tablet PARoxetine [Paxil] 10 mg PO QDAY #14 tablet Famotidine [Pepcid] 20 mg PO BID #60 tablet
[2019-04-09] MEDS ORDERED: K-DUR PO NR (10:34)
[2019-04-09] MEDS: LOVENOX SUB-Q SCH (10:40)
[2019-04-09] MEDS: PAXIL PO SCH (10:40)
[2019-04-09] MEDS: ROCEPHIN/NS 2 GM/100 ML 2 GM/100 ML BAG IV SCH (10:41)
[2019-04-09] MEDS: SODIUM CHLORIDE FLUSH SYRINGE 10 ML IV SCH (10:49)
--- NOTE | 2019-04-09 12:53 | Progress Note ---
Assessment and Plan Pt feeling well. royal solid high fiber diet. anxious about possible d/c Abd soft, non tender pt will be going back home to [facility] told to contact us when seeing his PCP in case any specific records needed that we can provide also rec mental health visit now prior to d/c as pt in quite anxious may f/u in office in I wk if pt wishes to come back down for f/u will also need GI eval and colonoscopy in near future once acute process resolves po antibiotics as per ID Selected Entries 04/09/19 04/09/19 05:10 08:15 Temperature 98.4 F Pulse Rate 79 Respiratory 18 Rate Blood Pressure 127/88 Laboratory Tests 04/09/19 05:22 WBC 7.5 Hgb 14.2 Hct 41.3 Objective Vital Signs - 12hr 04/09/19 04/09/19 04/09/19 03:38 04:08 05:10 Temperature 98.4 F Pulse Rate 79 Respiratory 18 16 20 Rate Blood Pressure 127/88 O2 Sat by Pulse 94 Oximetry 04/09/19 08:15 Temperature Pulse Rate Respiratory 18 Rate Blood Pressure O2 Sat by Pulse Oximetry - Labs 04/09/19 05:22 04/09/19 05:22 Diabetes panel 04/09/19 Range/Units 05:22 Sodium 139 (137-145) mmol/L Potassium 3.2 L (3.6-5.0) mmol/L Chloride 101.5 (98-107) mmol/L Carbon Dioxide 31 H (22-30) mmol/L BUN 3 L (9-20) mg/dL Creatinine 0.5 L (0.8-1.5) mg/dL Glucose 89 (75-100) mg/dL Calcium 7.5 L (8.4-10.2) mg/dL Calcium panel 04/09/19 Range/Units 05:22 Calcium 7.5 L (8.4-10.2) mg/dL Pituitary panel 04/09/19 Range/Units 05:22 Sodium 139 (137-145) mmol/L Potassium 3.2 L (3.6-5.0) mmol/L Chloride 101.5 (98-107) mmol/L Carbon Dioxide 31 H (22-30) mmol/L BUN 3 L (9-20) mg/dL Creatinine 0.5 L (0.8-1.5) mg/dL Glucose 89 (75-100) mg/dL Calcium 7.5 L (8.4-10.2) mg/dL Adrenal panel 04/09/19 Range/Units 05:22 Sodium 139 (137-145) mmol/L Potassium 3.2 L (3.6-5.0) mmol/L Chloride 101.5 (98-107) mmol/L Carbon Dioxide 31 H (22-30) mmol/L BUN 3 L (9-20) mg/dL Creatinine 0.5 L (0.8-1.5) mg/dL Glucose 89 (75-100) mg/dL Calcium 7.5 L (8.4-10.2) mg/dL
[2019-04-09 20:24] VITALS: BP 146/99
== END 2019-04-09 20:50 | disposition home or self-care (01) | DRG 871 ==
LOC: ED 21:21 → 3A 03-29 04:15
PROVIDERS: ADMIT Internal Medicine; ATTEND Internal Medicine
PROC: 0W9G30Z Drainage of Peritoneal Cavity with Drainage Device, Percutaneous Approach (ICD-10-PCS; principal; 2019-04-04)
PROC: BW40ZZZ Ultrasonography of Abdomen (ICD-10-PCS; 2019-04-04)
DX: A41.9 Sepsis, unspecified organism (principal); J96.00 Acute respiratory failure, unspecified whether with hypoxia or hypercapnia; K57.80 Diverticulitis of intestine, part unspecified, with perforation and abscess without bleeding; R45.851 Suicidal ideations; E87.1 Hypo-osmolality and hyponatremia; F32.9 Major depressive disorder, single episode, unspecified; I10 Essential (primary) hypertension; E11.9 Type 2 diabetes mellitus without complications; F41.9 Anxiety disorder, unspecified; F17.210 Nicotine dependence, cigarettes, uncomplicated; E66.01 Morbid (severe) obesity due to excess calories; J44.9 Chronic obstructive pulmonary disease, unspecified; Z82.49 Family history of ischemic heart disease and other diseases of the circulatory system; Z88.0 Allergy status to penicillin; Z72.89 Other problems related to lifestyle; Z71.6 Tobacco abuse counseling; Z68.30 Body mass index [BMI] 30.0-30.9, adult
CPT/HCPCS: 36415; 71045; 71046; 71260; 74177; 75989; 80048; 80053; 81001; 82140; 83690; 84439; 84443; 85007; 85025; 87040; 87116; 88112; 88305; 93970; 94640; 94760; 96361; 96365; 96375; 99406; G0378; J0696; J1650; J1885; J1956; J2270; J7030; Q9967